=== PATIENT | male | born 1975 | race Caucasian/White ===

== ENCOUNTER 2019-02-20 07:54 | Inpatient (IN) | payer BC ==
[2019-02-20] VITALS (376 sets, daily range): BP systolic 88–112; BP diastolic 56–81; PULSE 95–157; TEMP 98–98.4; O2SAT 79–100
[~2019-02-20] VITALS: Ht 180.3 cm; Wt 74.5 kg
[2019-02-20] MEDS ORDERED: PRISTIQ 50 MG T50 MG PO (08:03)
[2019-02-20] MEDS ORDERED: ATIVAN 0.50.5 MG/TAB PO (08:04)
[2019-02-20] MEDS ORDERED: ISTALOL 2.5 ML2.5 ML OU (08:05)
[2019-02-20] MEDS ORDERED: XALATAN EYE DROPS OU (08:05)
[2019-02-20] MEDS ORDERED: MULTIPLE VITAMI1 CAP PO (08:06)
[2019-02-20 08:28] LABS: HEMATOCRIT 43.2 % (42.0-52.0); HEMOGLOBIN 14.7 g/dl (13.5-18.0); MEAN CELL VOLUME 86 fl (80.0-100.0); MEAN CORPUSCULAR HEMOGLOBIN 29 pg (27.0-31.0); MEAN CORPUSCULAR HGB CONC 34 g/dl (33.0-37.0); MEAN PLATELET VOLUME 11.5 fl (7.4-10.4); PLATELET COUNT 351 K/mm3 (130-400); RED BLOOD COUNT 5.03 M/mm3 (4.20-5.60); REDCELL DISTRIBUTION WIDTH-CV 12.7 % (11.5-14.5)
[2019-02-20 08:42] LABS: BILIRUBIN,TOTAL 1.1 mg/dL (0.0-1.0); CALCIUM 8.5 mg/dL (8.4-10.2); CREATININE, serum 0.94 mg/dL (0.66-1.25); TOTAL PROTEIN 5.9 gm/dL (6.4-8.2)
[2019-02-20 09:09] LABS: BAND 18 % (0-10); LYMPHOCYTE 1 % (20.0-51.0); NEUTROPHILS 75 % (42.0-75.2); PLATELET ESTIMATE NORMAL (NORMAL)
[2019-02-20 09:11] LABS: C-REACTIVE PROTEIN 30.2 mg/dL (0.0-0.9)
[2019-02-20 09:22] LABS: INR 1.7 (0.8-3.0); PROTHROMBIN TIME 19.2 SECONDS (9.7-12.8)
[2019-02-20 09:37] LABS: COLLECTION METHOD CLEAN CATCH
[2019-02-20 09:43] LABS: MUCOUS Present /lpf; PH 5 (5-8); SQUAMOUS EPITHELIAL 0-2 /hpf; URINE APPEARANCE Hazy; URINE BACTERIA None Seen /hpf; URINE BILIRUBIN Negative (NEGATIVE); URINE BLOOD 1+ (NEGATIVE); URINE COLOR Yellow; URINE GLUCOSE 3+ (NEGATIVE); URINE KETONE 2+ (NEGATIVE); URINE LEUKOCYTE ESTERASE Negative (NEGATIVE); URINE NITRATE Negative (NEGATIVE); URINE PROTEIN(semi-quant) Negative (NEGATIVE); URINE UROBILINOGEN Negative (NEGATIVE)
[2019-02-20 09:43] LABS: LACTIC ACID 2.7 mmol/L (0.4-2.0)
--- NOTE | 2019-02-20 14:06 | NUR ---
To ICU 6 via bed from OR with RN x1 at side. Awakens easily when name called. Bedside report recievd from Rosalia COLUNGA. Abd dressing CDI, verified with FURRIER SHOP SUPERVISOR, with G tube present. G tube to LIWS. Complains of sl nausea and states pain 3-4 at this time. IV site verified. [place] to room and monitors applied. Call light in reach.
--- NOTE | 2019-02-20 15:00 | NUR ---
FARMWORKER PULLET FARM Dilaudid started per order. Adina Barber RN at bedside and sets up FARMWORK[employer], verified by this RN. Instructions given to patient by Adina Barber RN. Voices instuctions on use.
--- NOTE | 2019-02-20 15:15 | NUR ---
Dr. Raines here and aware of continued tachycardia. No new orders at this time. Will continue to monitor.
--- NOTE | 2019-02-20 17:30 | NUR ---
Dr. Rice here to see patient. Patient states last drink was 12 days ago, usually drinks a pint a day at home. Patient reported to this RN and now to Dr. Rice that he typically doesn't have withdrawal symptoms. Dr. Rice would like ETOH scoring/CIWA Q4 hours and Ativan orders if he would need it through the night for anxiety, doeesn't believe that patient will detox but would like it monitored. Reviewed continued tachycardia with provider. Reviewed I&O, labs and VS. No new orders at this time, does not want to start sepsis protocol, just continue to monitor at this time.
--- NOTE | 2019-02-20 19:10 | NUR ---
Bedside report given to Briana COLUNGA. Reviewed vital signs, BP and heart rate. BP cuff readjusted and retaken. Reviewed BUTTER LIQUEFIER settings and orders. Patient sitting up in bed, frequently sleepy but arouses when name called.
[2019-02-20 20:32] LABS: CALCIUM 7.3 mg/dL (8.4-10.2); CREATININE, serum 1.91 mg/dL (0.66-1.25); POTASSIUM 5.2 mmol/L (3.4-5.0)
[2019-02-20 22:29] LABS: ARTERIAL BLD GAS O2 SATURATION 90.5 % (92-100); ARTERIAL BLD GAS TCO2 CT 14.8; ARTERIAL BLOOD GAS BASE EXCESS -12.8 (-2-2); ARTERIAL BLOOD GAS HCO3 13.7 meq/L (22-26); ARTERIAL BLOOD GAS PCO2 33.7 mmHg (35-45); ARTERIAL BLOOD GAS PO2 71.7 mmHg (80-100); ARTERIAL BLOOD GAS pH 7.23 (7.35-7.45)
[2019-02-20 22:43] LABS: MEAN CORPUSCULAR HGB CONC 32 g/dl (33.0-37.0); MEAN PLATELET VOLUME 11.9 fl (7.4-10.4); RED BLOOD COUNT 3.63 M/mm3 (4.20-5.60); REDCELL DISTRIBUTION WIDTH-CV 13.2 % (11.5-14.5)
[2019-02-20 22:51] LABS: INR 1.9 (0.8-3.0); PROTHROMBIN TIME 21.4 SECONDS (9.7-12.8)
[2019-02-20 22:52] LABS: HEMATOCRIT 33.1 % (42.0-52.0); HEMOGLOBIN 10.6 g/dl (13.5-18.0); MEAN CELL VOLUME 91 fl (80.0-100.0); MEAN CORPUSCULAR HEMOGLOBIN 29 pg (27.0-31.0); PLATELET COUNT 538 K/mm3 (130-400)
[2019-02-20 22:53] LABS: CALCIUM 6.3 mg/dL (8.4-10.2); CREATININE, serum 1.87 mg/dL (0.66-1.25); PHOSPHOROUS 4.9 mg/dL (2.5-4.5); POTASSIUM 4.2 mmol/L (3.4-5.0)
[2019-02-20 22:54] LABS: PARTIAL THROMBOPLASTIN TIME 31.7 SECONDS (26.0-37.0)
[2019-02-20 23:13] LABS: ALANINE AMINOTRANSFERASE 42 U/L (21-72); ALKALINE PHOSPHATASE 105 U/L (50-136); AST,SGOT 50 U/L (15-37)
[2019-02-20 23:32] LABS: BAND 40 % (0-10); HYPOCHROMIA 2+; LYMPHOCYTE 2 % (20.0-51.0); METAMYELOCYTE 1 % (0-0); MYELOCYTE 1 % (0-0); NEUTROPHILS 55 % (42.0-75.2); PLATELET ESTIMATE INCREASED (NORMAL); SCHISTOCYTES 1+
[2019-02-21] VITALS (845 sets, daily range): BP systolic 91–106; BP diastolic 57–95; PULSE 86–134; TEMP 97.7–98.7; O2SAT 68–100
[2019-02-21 02:24] LABS: HEMOGLOBIN 10.7 g/dl (13.5-18.0)
[2019-02-21 02:25] LABS: HEMATOCRIT 33.3 % (42.0-52.0)
[2019-02-21 02:35] LABS: CALCIUM 6.5 mg/dL (8.4-10.2); CREATININE, serum 1.92 mg/dL (0.66-1.25)
[2019-02-21 04:14] LABS: HEMOGLOBIN 11.1 g/dl (13.5-18.0); MEAN CELL VOLUME 91 fl (80.0-100.0); MEAN CORPUSCULAR HEMOGLOBIN 30 pg (27.0-31.0); MEAN CORPUSCULAR HGB CONC 33 g/dl (33.0-37.0); MEAN PLATELET VOLUME 11.6 fl (7.4-10.4); PLATELET COUNT 549 K/mm3 (130-400); RED BLOOD COUNT 3.76 M/mm3 (4.20-5.60); REDCELL DISTRIBUTION WIDTH-CV 13.2 % (11.5-14.5)
[2019-02-21 04:21] LABS: HEMATOCRIT 34.2 % (42.0-52.0)
[2019-02-21 04:24] LABS: CALCIUM 6.9 mg/dL (8.4-10.2); CREATININE, serum 2.06 mg/dL (0.66-1.25); POTASSIUM 3.9 mmol/L (3.4-5.0)
[2019-02-21 04:32] LABS: HEMOGLOBIN A1C 7.4 %
[2019-02-21 05:03] LABS: LACTIC ACID 2.7 mmol/L (0.4-2.0)
[2019-02-21 05:58] LABS: BAND 52 % (0-10); HYPOCHROMIA 1+; LYMPHOCYTE 6 % (20.0-51.0); METAMYELOCYTE 1 % (0-0); NEUTROPHILS 38 % (42.0-75.2); PLATELET ESTIMATE INCREASED (NORMAL)
[2019-02-21 05:59] LABS: ARTERIAL BLD GAS O2 SATURATION 92.3 % (92-100); ARTERIAL BLD GAS TCO2 CT 15.9; ARTERIAL BLOOD GAS HCO3 14.8 meq/L (22-26); ARTERIAL BLOOD GAS PCO2 36.5 mmHg (35-45); ARTERIAL BLOOD GAS PO2 74.3 mmHg (80-100); ARTERIAL BLOOD GAS pH 7.23 (7.35-7.45)
[2019-02-21 06:19] LABS: COLLECTION METHOD CLEAN CATCH
[2019-02-21 06:30] LABS: BILIRUBIN,TOTAL 0.4 mg/dL (0.0-1.0); CALCIUM 6.7 mg/dL (8.4-10.2); CREATININE, serum 2.13 mg/dL (0.66-1.25); TOTAL PROTEIN 4.2 gm/dL (6.4-8.2)
[2019-02-21 06:54] LABS: PH 5 (5-8); SQUAMOUS EPITHELIAL 0-2 /hpf; URINE APPEARANCE Cloudy; URINE BACTERIA None Seen /hpf; URINE BILIRUBIN Negative (NEGATIVE); URINE BLOOD 3+ (NEGATIVE); URINE COLOR Amber; URINE GLUCOSE 1+ (NEGATIVE); URINE KETONE Trace (NEGATIVE); URINE LEUKOCYTE ESTERASE Trace (NEGATIVE); URINE NITRATE Negative (NEGATIVE); URINE PROTEIN(semi-quant) 1+ (NEGATIVE); URINE RBC >50 /hpf; URINE UROBILINOGEN Negative (NEGATIVE)
--- NOTE | 2019-02-21 07:45 | NUR ---
Bedside report received from CRISTINE Warren. Dr. Wang here, new orders received. New orders to decrease D5W to 75ml/hr, decrease NS to 75ml/hr, decrease insulin gtt to 4 units/hr.
--- NOTE | 2019-02-21 08:00 | NUR ---
Assessment complete. Dr. Wang talking to patient about need for intubation. Patient does not want any family or friends called at this time.
--- NOTE | 2019-02-21 08:31 | NUR ---
Trish Marinelli,JODY here for intubation. 8.0 ETT, 23 at teeth. Dieter,RN at bedside, Patience,RT at bedside. Dr. Wang at bedside, with this RN.
--- NOTE | 2019-02-21 08:43 | NUR ---
1999 - CALLED HOSPITALIST DR. PEREZ REGARDING PT'S BP AT 80'S TO 90'S, HR AT 140'S. BS AT 462. LACTIC AT 9.0. ORDERS RECEIVED FOR STAT EKG. SEVERE SEPSIS PROTOCOL INITIATED. DIRECTOR ASSET DILAUDID CONTINUOUS DOSE DECREASED TO 0.1 MG/HR. PT SWITCHED TO ICU STATUS. 2149 - LEFT SUBCLAVIAN TRIPLE LUMEN CATHETER INSERTED BY DR. BOJORQUEZ. 2229 - DR. DE ANDA CONSULTED AND PRESENT AT BEDSIDE. 2319 - IV INSULIN STARTED PER ORDER. 529 - PT'S URINE OUTPUT WAS 150, DR. PEREZ NOTIFIED AND VERBALIZED SHE'LL ORDER NEPHROLOGY CONSULT.
[2019-02-21 08:48] LABS: CALCIUM 6.7 mg/dL (8.4-10.2); CREATININE, serum 2.11 mg/dL (0.66-1.25); POTASSIUM 3.8 mmol/L (3.4-5.0)
[2019-02-21 08:50] LABS: INR 1.6 (0.8-3.0); PROTHROMBIN TIME 18.4 SECONDS (9.7-12.8)
[2019-02-21 08:52] LABS: PARTIAL THROMBOPLASTIN TIME 29.8 SECONDS (26.0-37.0)
--- NOTE | 2019-02-21 09:00 | NUR ---
Dr. Wang gives order to decrease insulin gtt to 2 units/hr.
--- NOTE | 2019-02-21 09:01 | NUR ---
VERIFIED TITRATION UNITS TO DR. PEREZ AND WANTED TO DECREASE IT 1 UNIT PER HOUR UNTIL BS ATLEAST 150 MG/DL.
--- NOTE | 2019-02-21 09:40 | NUR ---
Fentanyl gtt started, Dilaudid VENEER JOINER discontinued at this time.
--- NOTE | 2019-02-21 11:00 | NUR ---
Dr. Null gives order to dc insulin gtt.
[2019-02-21 11:05] LABS: ARTERIAL BLD GAS O2 SATURATION 96.2 % (92-100); ARTERIAL BLD GAS TCO2 CT 15.7; ARTERIAL BLOOD GAS BASE EXCESS -11.1 (-2-2); ARTERIAL BLOOD GAS HCO3 14.7 meq/L (22-26); ARTERIAL BLOOD GAS PCO2 32.5 mmHg (35-45); ARTERIAL BLOOD GAS PO2 96.9 mmHg (80-100); ARTERIAL BLOOD GAS pH 7.27 (7.35-7.45)
[2019-02-21 11:15] LABS: CALCIUM 6.6 mg/dL (8.4-10.2); CREATININE, serum 2.27 mg/dL (0.66-1.25)
[2019-02-21 11:17] LABS: POTASSIUM 3.9 mmol/L (3.4-5.0)
--- NOTE | 2019-02-21 11:51 | NUR ---
RT here to change vent settings, TV increased to 500, BR increased to 24.
--- NOTE | 2019-02-21 13:29 | NUR ---
PT ELECTIVELY INTUBATED BY ANESTHESIA PER DR. DE ANDA'S ORDERS. PT PLACED ON SETTINGS PER DR. DE ANDA. #8.0 OETT SECURED 23@TEETH. CXR DONE AT THIS TIME FOR PLACEMENT CONFIRMATION. ABG PENDING @1000. [facility]. VITAL SIGNS STABLE. AMBU BAG WITH MASK AT BEDSIDE.
--- NOTE | 2019-02-21 14:28 | NUR ---
Patient is currently intubated and sedated. Patient gave orders to the nurse prior to intubation that he does not want anyone contacted about him while he is here. Patient does not have a PCP listed and [facility] is listed as his pharmacy. SW will continue to follow up to assist in dc planning.
--- NOTE | 2019-02-21 16:10 | NUR ---
PT here working with patient.
[2019-02-21 17:09] LABS: ALBUMIN 1.9 gm/dL (3.5-5.0); BILIRUBIN,TOTAL 0.3 mg/dL (0.0-1.0); CALCIUM 6.6 mg/dL (8.4-10.2); CREATININE, serum 2.36 mg/dL (0.66-1.25); PHOSPHOROUS 5.1 mg/dL (2.5-4.5); POTASSIUM 3.9 mmol/L (3.4-5.0)
[2019-02-21 17:26] LABS: ARTERIAL BLD GAS O2 SATURATION 97.1 % (92-100); ARTERIAL BLD GAS TCO2 CT 18.4; ARTERIAL BLOOD GAS BASE EXCESS -6.7 (-2-2); ARTERIAL BLOOD GAS HCO3 17.5 meq/L (22-26); ARTERIAL BLOOD GAS PCO2 30.1 mmHg (35-45); ARTERIAL BLOOD GAS PO2 102.7 mmHg (80-100); ARTERIAL BLOOD GAS pH 7.38 (7.35-7.45)
--- NOTE | 2019-02-21 18:00 | NUR ---
Patient awake, writing notes. Patient repositioned for comfort. Propofol gtt increased. Call light within reach.
--- NOTE | 2019-02-21 19:17 | NUR ---
Bedside report given to CRISTINE Warren. All lines/gtts verified.
[2019-02-22] VITALS (922 sets, daily range): BP systolic 92–114; BP diastolic 62–84; PULSE 80–110; TEMP 97–98.7; O2SAT 63–100
[2019-02-22 05:09] LABS: ARTERIAL BLD GAS O2 SATURATION 96.3 % (92-100); ARTERIAL BLD GAS TCO2 CT 19.1; ARTERIAL BLOOD GAS BASE EXCESS -6.5 (-2-2); ARTERIAL BLOOD GAS HCO3 18.1 meq/L (22-26); ARTERIAL BLOOD GAS PCO2 32.4 mmHg (35-45); ARTERIAL BLOOD GAS PO2 94.9 mmHg (80-100); ARTERIAL BLOOD GAS pH 7.37 (7.35-7.45)
[2019-02-22 05:16] LABS: MEAN CELL VOLUME 91 fl (80.0-100.0); MEAN CORPUSCULAR HGB CONC 33 g/dl (33.0-37.0); MEAN PLATELET VOLUME 11.3 fl (7.4-10.4); RED BLOOD COUNT 2.51 M/mm3 (4.20-5.60); REDCELL DISTRIBUTION WIDTH-CV 13.5 % (11.5-14.5)
[2019-02-22 05:23] LABS: HEMATOCRIT 22.8 % (42.0-52.0); HEMOGLOBIN 7.4 g/dl (13.5-18.0); MEAN CORPUSCULAR HEMOGLOBIN 29 pg (27.0-31.0); PLATELET COUNT 422 K/mm3 (130-400)
[2019-02-22 05:34] LABS: ALBUMIN 1.9 gm/dL (3.5-5.0); BILIRUBIN,TOTAL 0.2 mg/dL (0.0-1.0); CALCIUM 6.9 mg/dL (8.4-10.2); CREATININE, serum 2.66 mg/dL (0.66-1.25); MAGNESIUM 2.2 mg/dL (1.6-2.3); PHOSPHOROUS 3.7 mg/dL (2.5-4.5); POTASSIUM 3.6 mmol/L (3.4-5.0)
--- NOTE | 2019-02-22 05:50 | NUR ---
SMART CARE NOT DONE PT HAS NOT BEEN INTUBATED FOR OVER 24 HOURS.
[2019-02-22 07:50] LABS: BAND 4 % (0-10); LYMPHOCYTE 4 % (20.0-51.0); NEUTROPHILS 90 % (42.0-75.2); PLATELET ESTIMATE INCREASED (NORMAL)
[2019-02-22 08:50] LABS: HEMATOCRIT 21.7 % (42.0-52.0); HEMOGLOBIN 7.1 g/dl (13.5-18.0)
--- NOTE | 2019-02-22 09:12 | NUR ---
PT EXTUBATED FROM VENT BY RN AND RT. PT PLACED ON 3L NC. PT TOLERATED WELL.
--- NOTE | 2019-02-22 09:15 | NUR ---
PT HAS REACHED PS OF 0 AT THIS TIME. ALERT/AWAKE. NIF -25. POSTIVE CUFF LEAK NOTED. DR. DE ANDA GAVE THE ORDER AT THIS TIME TO EXTUBATE. PT EXTUBATED WITH NO ISSUES. PLACED ON 3LNC. PT COUGHED A FEW TIMES WITH JUST A MINIMAL AMOUT OF SECRETIONS. NO STRIDOR AUSCULTATED.
--- NOTE | 2019-02-22 10:00 | NUR ---
ADDITIONAL IV ACCESS NEEDED FOR BUMEX GTT. 20 IV INSERTED TO LEFT AC
--- NOTE | 2019-02-22 11:22 | NUR ---
BG 137, DOWN FROM 290. GTT PLACED ON HOLD. WILL RECHECK IN 1 HOUR
--- NOTE | 2019-02-22 12:23 | NUR ---
PT'S BG 74. INSULIN GTT CONTNUES TO BE ON HOLD. 12.5 GM D50 GIVEN IVP. WILL RECHECK BG IN 15 MINS.
--- NOTE | 2019-02-22 13:34 | NUR ---
BG 109. INSULIN GTT CONTINUES TO BE ON HOLD
--- NOTE | 2019-02-22 14:32 | NUR ---
DAQUAN and SW student met with patient to discuss discharge planning. Patient lives alone in [place]. He reports he does not talk to his parents or other family. SW discussed next of kin and medical decisions with him. He reports his contact, Sherwin Campbell [phone], knows how to get ahold of his parents in an emergancy and he is fine with them making the decisions if he is unable to. SW provided a DPOA form and explained the process. he reports he will think about making one with his ER contact on it. SW will follow up about this. Patient doesnt currently have a PCP and would like a follow up set with Dr Powell at [facility] as long as he takes his BCBS. SW talked with patient about alcohol detox. he does say he is an alcoholic but does not have any problems with detox symptoms and can stop drinking for a period of time without any health issues. SW asked if patient would be interested in outpatient treatment after discharge and he said he would like information about [facility] program. SW provided brochures to patient. SW will continue to follow about outpatient alcohol and mental health treatment as well as filling out DPOA.
--- NOTE | 2019-02-22 16:00 | NUR ---
BS 154 AT THIS TIME. INSULIN GTT REMAINS ON HOLD D/T RECENT HYPOGLYCEMIA. WILL RECHECK IN 1 HOUR AND IF BLOOD GLUCOSE REMAINS STABLE WILL DISCONTNUE INSULIN GTT AND SWITCH TO ASHS WITH SLIDING SCALE PER DR PERSAUD'S VERBAL ORDERS.
--- NOTE | 2019-02-22 17:30 | NUR ---
PT ALERT/AWAKE. PLACED ON 2 MIN CPAP 5 PEEP 5 TRIAL. PT PASSED AND LOOKED WELL ON THOSE SETTINGS. PT PLACED ON SMART CARE AT THIS TIME ON THE SAME SETTINGS. RN AWARE, TURNED SEDATION DOWN. DR. DE ANDA ARRIVED SHORTLY AFTER AND WAS PLEASED WITH SMART CARE AND HAD RN COMLETELY TURN DOWN SEDATION TO PREPARE FOR EXTUBATION.
--- NOTE | 2019-02-22 19:10 | NUR ---
RECEIVED BEDSIDE REPORT FROM CRISTINE LIZARRAGA. PATIENT WAS AWAKE AND PARTICIPATED IN REPORT. MEDICATIONS VARIFIED. WILL CONTINUE TO MONITOR PATIENT.
[2019-02-23] VITALS (900 sets, daily range): BP systolic 106–134; BP diastolic 80–88; PULSE 106–116; TEMP 97.2–98.8; O2SAT 63–100
--- NOTE | 2019-02-23 02:04 | NUR ---
PATIENT IS CURRENTLY ASLEEP. WILL CONTUINUE TO MONITOR PATIENT.
[2019-02-23 05:50] LABS: BASO % 0.1 % (0.0-2.0); EOS % 0.1 % (0-4.0); GRAN # 14.2 (1.4-6.5); GRAN % 89.8 % (42.2-75.2); LYMPH # 0.8 (1.2-3.4); MEAN CELL VOLUME 88 fl (80.0-100.0); MEAN CORPUSCULAR HGB CONC 33 g/dl (33.0-37.0); MONO # 0.5 (0.1-0.6); MONO % 3.4 % (1.7-9.3); PLATELET COUNT 419 K/mm3 (130-400); RED BLOOD COUNT 3.17 M/mm3 (4.20-5.60); REDCELL DISTRIBUTION WIDTH-CV 13.2 % (11.5-14.5)
[2019-02-23 06:00] LABS: ALBUMIN 2.6 gm/dL (3.5-5.0); BILIRUBIN,TOTAL 0.6 mg/dL (0.0-1.0); CREATININE, serum 3.04 mg/dL (0.66-1.25); POTASSIUM 3.4 mmol/L (3.4-5.0); TOTAL PROTEIN 5.3 gm/dL (6.4-8.2)
[2019-02-23 06:19] LABS: HEMOGLOBIN 9.3 g/dl (13.5-18.0); MEAN CORPUSCULAR HEMOGLOBIN 29 pg (27.0-31.0)
--- NOTE | 2019-02-23 07:05 | NUR ---
Bedside report received from CRISTINE Foster.
--- NOTE | 2019-02-23 07:26 | NUR ---
GAVE REPORT TO CRISTINE CASON.
--- NOTE | 2019-02-23 07:30 | NUR ---
Assessment complete, patient resting in bed, reports pain 2-3/10 to abdomen, states "its ok, as long as I remember to push my button." Patient states " can I have some non-acidic juice" this RN discussed with patient, that we will talk to Dr. Raines when he comes to see him.
--- NOTE | 2019-02-23 07:45 | NUR ---
Rosa,ST here for cognitive eval.
--- NOTE | 2019-02-23 08:08 | NUR ---
PT here to see patient, assisted him to the chair.
--- NOTE | 2019-02-23 08:50 | NUR ---
PICC intact right upper arm with disk saturated with red drainage. with sterile technique right upper arm PICC dressing change done with insertion site cleansed with chloraprep x 1, chlorhexidine impregnated disk applied, skin prep, stat lock, and tegaderm applied. no signs or symptoms of IV complications noted. no concerns voiced. re-wrapped with charlie to protect catheter.
--- NOTE | 2019-02-23 10:14 | NUR ---
Initial visit; Patient thanked Cuprous Chloride Helper for stopping and offering God's blessings.
--- NOTE | 2019-02-23 11:26 | NUR ---
OT in working with patient.
--- NOTE | 2019-02-23 19:09 | NUR ---
RECEIVED REPORT FROM CRISTINE CASON. PATIENT WAS RESTING IN BED. MEDICATIONS AND LINES VARIFIED.
--- NOTE | 2019-02-23 19:10 | NUR ---
Bedside report given to CRISTINE Foster.
[2019-02-24] VITALS (675 sets, daily range): BP systolic 118–130; BP diastolic 73–92; PULSE 97–110; TEMP 97.9–99.2; O2SAT 75–100
[2019-02-24 05:06] LABS: MEAN CELL VOLUME 89 fl (80.0-100.0); MEAN CORPUSCULAR HGB CONC 33 g/dl (33.0-37.0); MEAN PLATELET VOLUME 10.8 fl (7.4-10.4); PLATELET COUNT 388 K/mm3 (130-400); RED BLOOD COUNT 2.85 M/mm3 (4.20-5.60); REDCELL DISTRIBUTION WIDTH-CV 13.2 % (11.5-14.5)
[2019-02-24 05:10] LABS: HEMATOCRIT 25.4 % (42.0-52.0); HEMOGLOBIN 8.3 g/dl (13.5-18.0); MEAN CORPUSCULAR HEMOGLOBIN 29 pg (27.0-31.0)
[2019-02-24 05:18] LABS: ALBUMIN 2.4 gm/dL (3.5-5.0); BILIRUBIN,TOTAL 0.5 mg/dL (0.0-1.0); CALCIUM 8.1 mg/dL (8.4-10.2); CREATININE, serum 2.96 (0.66-1.25); MAGNESIUM 1.9 mg/dL (1.6-2.3); PHOSPHOROUS 3.4 mg/dL (2.5-4.5); POTASSIUM 3.2 mmol/L (3.4-5.0); TOTAL PROTEIN 5.2 gm/dL (6.4-8.2)
[2019-02-24 06:09] LABS: BAND 9 % (0-10); HYPOCHROMIA 1+; LYMPHOCYTE 8 % (20.0-51.0); MYELOCYTE 2 % (0-0); NEUTROPHILS 77 % (42.0-75.2); PLATELET ESTIMATE NORMAL (NORMAL); TEAR DROP CELLS 1+
--- NOTE | 2019-02-24 06:29 | NUR ---
DR. DE ANDA IS VISITING WITH PATIENT. DISCUSSED PLAN OF CARE WITH PATIENT. ANSWERED ALL PATIENTS QUESTIONS. WILL CONTINUE TO MONITOR PATIENT.
--- NOTE | 2019-02-24 07:35 | NUR ---
GAVE REPORT TO CRISTINE GILLILAND. PATIENT WAS AWAKE AND PARTICIPATED IN REPORT.
--- NOTE | 2019-02-24 07:35 | NUR ---
Bedside report recieved by Kristin COLUNGA and Serge RN. Patient awake and participates with report, denies needs at this time. Medications and lines verified. Call light and TUNNEL ELASTIC OPERATOR LOCKSTITCH button at side.
--- NOTE | 2019-02-24 11:10 | NUR ---
PROJECT DEVELOPMENT COORDINATOR discontinued at this time. Patient states understanding of change in pain medication. Mize given, takes without difficulty. Encouraged to eat, states "I was just waiting for Dr. Raines to come."
--- NOTE | 2019-02-24 13:25 | NUR ---
DAQUAN talked with Katarina in PT about patients dc potential. She reports she is meeting with him again this afternoon with a walker and will see if he will need rehab at discharge or if he has potential to return home.
--- NOTE | 2019-02-24 19:35 | NUR ---
Bedside report given to Gabe RN. Patient sitting up in chair, participates in report. IV Medications verified. Denies needs at this time.
--- NOTE | 2019-02-24 19:58 | NUR ---
Shift assessment complete at this time. Plan of care reviewed at bedside with patient. Vitals stable at this time. Additional time taken to address any other needs or concerns. Denies pain or any other discomfort. Will continue to monitor.
[2019-02-25] VITALS (551 sets, daily range): BP systolic 113–130; BP diastolic 81–93; PULSE 116–152; TEMP 98–98.9; O2SAT 82–100
--- NOTE | 2019-02-25 | NUR ---
Pt sleeping comfortably in bed. Denies pain or any other discomfort. Vitals stable at this time. Will continue to monitor.
[2019-02-25 02:50] LABS: HEMATOCRIT 32.4 % (42.0-52.0); HEMOGLOBIN 10.6 g/dl (13.5-18.0); MEAN CELL VOLUME 89 fl (80.0-100.0); MEAN CORPUSCULAR HEMOGLOBIN 29 pg (27.0-31.0); MEAN CORPUSCULAR HGB CONC 33 g/dl (33.0-37.0); MEAN PLATELET VOLUME 10.8 fl (7.4-10.4); PLATELET COUNT 605 K/mm3 (130-400); RED BLOOD COUNT 3.66 M/mm3 (4.20-5.60); REDCELL DISTRIBUTION WIDTH-CV 13.2 % (11.5-14.5)
[2019-02-25 02:56] LABS: INR 1.3 (0.8-3.0); PROTHROMBIN TIME 14.5 SECONDS (9.7-12.8)
[2019-02-25 03:00] LABS: ALBUMIN 2.6 gm/dL (3.5-5.0); BILIRUBIN,TOTAL 0.8 mg/dL (0.0-1.0); CALCIUM 8.7 mg/dL (8.4-10.2); CREATININE, serum 2.72 (0.66-1.25); POTASSIUM 3.7 mmol/L (3.4-5.0); TOTAL PROTEIN 5.5 gm/dL (6.4-8.2)
[2019-02-25 03:21] LABS: BAND 18 % (0-10); HYPOCHROMIA 1+; LYMPHOCYTE 2 % (20.0-51.0); METAMYELOCYTE 1 % (0-0); NEUTROPHILS 77 % (42.0-75.2); PLATELET ESTIMATE INCREASED (NORMAL)
[2019-02-25 03:22] LABS: STOMATOCYTE 1+
--- NOTE | 2019-02-25 04:00 | NUR ---
Pt sleeping in bed. Denies pain or any other discomfort. HR improving, now low 140s from 150s. Pt now afebrile at 98.5 from previous temp of 102.8 at 0230. All other vitals stable. Will continue to monitor.
--- NOTE | 2019-02-25 07:18 | NUR ---
Bedside report given to CRISTINE Kramer.
--- NOTE | 2019-02-25 07:18 | NUR ---
Bedside report recieved from Gabe COLUNGA. Medications and lines verified.
--- NOTE | 2019-02-25 08:00 | NUR ---
To CT via bed with RN at bedside. 0813-Returns to room via bed from CT. Lab here and specimens obtained.
[2019-02-25 10:05] LABS: ARTERIAL BLD GAS O2 SATURATION 95.3 % (92-100); ARTERIAL BLOOD GAS BASE EXCESS 1.2 (-2-2); ARTERIAL BLOOD GAS HCO3 23.1 meq/L (22-26); ARTERIAL BLOOD GAS PO2 73.7 mmHg (80-100); ARTERIAL BLOOD GAS pH 7.52 (7.35-7.45)
--- NOTE | 2019-02-25 11:29 | NUR ---
SW attended clinical rounding. Patient is sleeping however nurse reports he has gotten up and walked. PT notes report patient was able to ambulate with cane and would still like to return home on discharge. SW to follow.
[2019-02-25 12:58] LABS: COLLECTION METHOD CATHETER
[2019-02-25 13:31] LABS: AMORPHOUS CRYSTAL Present /uL; MUCOUS Present /lpf; PH 5 (5-8); SQUAMOUS EPITHELIAL None Seen /hpf; URINE APPEARANCE Clear; URINE BACTERIA Rare /hpf; URINE BILIRUBIN Negative (NEGATIVE); URINE BLOOD 1+ (NEGATIVE); URINE COLOR Yellow; URINE GLUCOSE Negative (NEGATIVE); URINE KETONE Negative (NEGATIVE); URINE LEUKOCYTE ESTERASE Negative (NEGATIVE); URINE NITRATE Negative (NEGATIVE); URINE PROTEIN(semi-quant) 1+ (NEGATIVE); URINE UROBILINOGEN Negative (NEGATIVE)
--- NOTE | 2019-02-25 19:10 | NUR ---
received report from nacho ceja. patient was awake and participated in report. medications varified.
--- NOTE | 2019-02-25 19:14 | NUR ---
Bedside report given to Kristin COLUNGA and Kiersten COLUNGA. Patiene wakeful for most of report. Denies needs. IV medications verified at this time.
--- NOTE | 2019-02-25 23:20 | NUR ---
PATIENT WAS COMPLAINING OF INCISION PAIN. RATED IT A 5/10. GAVE 2 MG OF MORPHINE. WILL CHECK BACK IN 30 MINUTES TO SEE IF THE MEDICATION HELPED.
[2019-02-26] VITALS (849 sets, daily range): BP systolic 126–139; BP diastolic 89–98; PULSE 110–137; TEMP 97.5–99.1; O2SAT 88–100
--- NOTE | 2019-02-26 00:09 | NUR ---
PATIENT SEEMS TO BE RESTING COMFORTABLY IN BED. PATIENT STATED THAT THE MORPHINE DID DECREASE THE PAIN. PATIENT SHEART RATE IS IN THE UPPER 120'S. WILL CONTINUE TO MONITOR PATIENT.
--- NOTE | 2019-02-26 03:06 | NUR ---
CALLED [facility] AND SPOKE TO CRISTINE CHILDRESS. INFORMED HIM OF PATIENT HEART RATE AND BLOOD PRESSURE. BOTH HAVE BEEN INCREASING THE NIGHT HAS GONE ON. CRISTINE CHILDRESS INFORMED ME HE WOULD TALK TO DR. BRAUN AND LET ME KNOW FURTHER PLANS. WILL CONTINUE TO MONITOR PATIENT.
--- NOTE | 2019-02-26 04:19 | NUR ---
STARTED PATIENT ON A 500 ML BOLUS OF NORMAL SALINE TO HELP REDUCE THE TACHYCARDIA. PATIENT DOES NOT COMPLAIN OF PAIN AT THIS TIME BUT DOES LOOK EXHAUSTED AND WEAK. WILL CONTINUE TO MONITOR PATIENT THROUGHOUT THE SHIFT.
[2019-02-26 05:47] LABS: MEAN CELL VOLUME 92 fl (80.0-100.0); MEAN CORPUSCULAR HGB CONC 32 g/dl (33.0-37.0); PLATELET COUNT 600 K/mm3 (130-400); RED BLOOD COUNT 3.27 M/mm3 (4.20-5.60); REDCELL DISTRIBUTION WIDTH-CV 13.8 % (11.5-14.5)
[2019-02-26 05:49] LABS: HEMATOCRIT 30.1 % (42.0-52.0); HEMOGLOBIN 9.6 g/dl (13.5-18.0); MEAN CORPUSCULAR HEMOGLOBIN 29 pg (27.0-31.0)
[2019-02-26 06:02] LABS: ALBUMIN 2.3 gm/dL (3.5-5.0); BILIRUBIN,TOTAL 0.8 mg/dL (0.0-1.0); CALCIUM 8.3 mg/dL (8.4-10.2); CREATININE, serum 2.54 (0.66-1.25); MAGNESIUM 2.2 mg/dL (1.6-2.3); POTASSIUM 4.1 mmol/L (3.4-5.0); TOTAL PROTEIN 5.1 gm/dL (6.4-8.2)
[2019-02-26 06:27] LABS: INR 1.4 (0.8-3.0); PROTHROMBIN TIME 16.4 SECONDS (9.7-12.8)
--- NOTE | 2019-02-26 07:20 | NUR ---
Bedside report received from CRISTINE Foster. Care of patient assumed at this time.
--- NOTE | 2019-02-26 07:30 | NUR ---
gave report to CRISTINE Mcknight.
[2019-02-26 07:47] LABS: BAND 20 % (0-10); LYMPHOCYTE 4 % (20.0-51.0); NEUTROPHILS 75 % (42.0-75.2)
[2019-02-26 07:48] LABS: PLATELET ESTIMATE INCREASED (NORMAL)
--- NOTE | 2019-02-26 08:11 | NUR ---
Patient assessment complete. Patient resting in bed, denies pain at this time but states he is having some shortness of breath. Patient breaths are shallow, labored upon exertion. Midline abdominal incision features some opening between sandi where erlinda are not present. Minimal drainage noted as well. Patient denies any pain at this time. Feet are pale and edemetous. Patient seems somewhat letharhic despite being awake and oriented x4. Patient becomes a bit dyspneic while speaking. Heart rate remains tachycardic, 137 beats/min at this time. Will continue to closely monitor.
--- NOTE | 2019-02-26 12:45 | NUR ---
Patient assessment complete. Patient resting in bed. No acute changes. Will continue to monitor.
--- NOTE | 2019-02-26 16:20 | NUR ---
Patient currently resting in bed. Patient dangled feet at bedside, states he feels better afterwards although he became slightly dyspneic while assisted back into a laying position. Patient states he is having some increased pain associated with movement. Heart rate continue to be tachycardic, 127 beats/min at this time. Will continue to monitor.
--- NOTE | 2019-02-26 17:19 | NUR ---
Left subclavian triple lumen noted to have some acute redness and warmth during examination. Called Dr. Rice, verbal order to remove central line obtained. Left subclavian central line pulled using sterile technique. Catheter tip removed with sterile scissor, sent for culture. Pressure held for 5 minutes. Sterile dressing placed. Will monitor closely.
--- NOTE | 2019-02-26 19:15 | NUR ---
Bedside report given to CRISTINE Burch.
[2019-02-26 19:24] LABS: 12 HR URINE TOTAL VOLUME 1.25 L
[2019-02-27] VITALS (1131 sets, daily range): BP systolic 127–153; BP diastolic 84–96; PULSE 110–126; TEMP 98.4–99.8; O2SAT 73–99
--- NOTE | 2019-02-27 00:45 | NUR ---
Notified [facility]-care that eveing levemir dose was held due to blood glucose of 79. At 0043 glucose was 106. Will continue to monitor.
--- NOTE | 2019-02-27 01:40 | NUR ---
Bedbath provided and abdominal incision dressing changed. Administered morphing prior to dressing change. Patient reported that receiving pain medication prior to dressing changes was helpful. No concerns at this time.
--- NOTE | 2019-02-27 04:00 | NUR ---
Patient resting between disturbances. Requesting water; reminded to try to pace himself with liquids so to not drink too much throughout the night. No other concerns at this time.
[2019-02-27 06:46] LABS: BASO % 0.1 % (0.0-2.0); EOS % 0.1 % (0-4.0); GRAN # 12.5 (1.4-6.5); GRAN % 89.2 % (42.2-75.2); LYMPH # 0.5 (1.2-3.4); LYMPH % 3.2 % (20.0-51.0); MEAN CELL VOLUME 92 fl (80.0-100.0); MEAN CORPUSCULAR HGB CONC 31 g/dl (33.0-37.0); MEAN PLATELET VOLUME 11.1 fl (7.4-10.4); MONO # 0.8 (0.1-0.6); PLATELET COUNT 530 K/mm3 (130-400); RED BLOOD COUNT 2.85 M/mm3 (4.20-5.60); REDCELL DISTRIBUTION WIDTH-CV 13.9 % (11.5-14.5)
[2019-02-27 06:47] LABS: HEMATOCRIT 26.3 % (42.0-52.0); HEMOGLOBIN 8.2 g/dl (13.5-18.0); MEAN CORPUSCULAR HEMOGLOBIN 29 pg (27.0-31.0)
[2019-02-27 06:55] LABS: ALBUMIN 2.4 gm/dL (3.5-5.0); BILIRUBIN,TOTAL 0.8 mg/dL (0.0-1.0); CALCIUM 8.4 mg/dL (8.4-10.2); CREATININE, serum 2.48 (0.66-1.25); POTASSIUM 4.2 mmol/L (3.4-5.0); TOTAL PROTEIN 5.4 gm/dL (6.4-8.2)
--- NOTE | 2019-02-27 07:18 | NUR ---
Bedside report received from CRISTINE Burch. Care of patient assumed at this time.
--- NOTE | 2019-02-27 09:19 | NUR ---
Patient assessment complete. Patient resting in bed, denies pain at this time. Redness no longer present on chest, left chest site where subclavian line was removed features no signs of infection. Abdominal wound features openings between sandi, some drainage noted, but no erythema or edema surrounding area. Some drainage noted around g-tube site. Areas cleaned, new dressing placed. Patient's lower legs continue to be edemetous and cool. Patient still seems lethargic. Heart rate improved, current heart rate 105. Will continue to monitor.
--- NOTE | 2019-02-27 12:18 | NUR ---
Patient resting in bed. denies pain at this time. Heart rate slightly increased at 126 beats/min. Patient breaths are tachypneic and shallow, but patient denies shortness of breath. Redness present on patient's cheeks and chest that is warm to the touch and blanchable. Diphenhydramine given per MAR, hospitalist and tip mender aware. Will continue to monitor.
--- NOTE | 2019-02-27 17:32 | NUR ---
Patient resting in bed. No acute changes. No redness apparent on chest at this time. Patient continues to take in clear liquids without nausea, tolerates well. Will continue to monitor.
--- NOTE | 2019-02-27 19:10 | NUR ---
Bedside report received from Roxanna. Pt resting in bed at this time with eyes open. Denies any questions.
--- NOTE | 2019-02-27 19:15 | NUR ---
Bedside report given to CRISTINE Berger.
--- NOTE | 2019-02-27 19:30 | NUR ---
Pts aunt discussed with this nurse pts ability to have Propel beverage at bedside. Discussed with pt and family member the ability to have this drink although will need to limit due to the extra electrolytes pt will be intaking with this beverage. 2 full bottles put in the pt fridge with a bottle 3/4 full at pt bedside. Pt agreed to limit intake due to prior pt discussion with dietitian, via pt report.
--- NOTE | 2019-02-27 20:59 | NUR ---
Pt assessment complete. Pt resting in bed at this time. Pt reported to nurse ability to alternated sides when discomfort is felt. Denies bed bath or oral care at this time. Pt also declined repositioning of pillows under bilateral legs. Need for ankles pumps and IS while awake reviewed at this time. Pt resting with eyes open and closed while nurse was in the room with medication administration and assessment. Pt makes wants and needs known with proper demonstration of call light which is with in reach. Upper extremities are cool to the touch, core and lower extremities are warm. [place] with scattered areas of dehiscence and a small amount of serosanguineous drainage noted at this time to abdominal incision. Pt reported needing pain medication q 4-6 hours. Reviewed ordered pain medication at this time and will continue to reassess. Verbalized agreement that pt will notify nurse when pain returns.
[2019-02-28] VITALS (698 sets, daily range): BP systolic 104–147; BP diastolic 58–88; PULSE 102–128; TEMP 98.3–99.9; O2SAT 87–97
--- NOTE | 2019-02-28 05:00 | NUR ---
Pt abdominal dressing change completed. Pt tolerated well. Cleaned X2 Chlor swabs. Moderate amount of drainage noted to gauze and abd at this time. Redness noted to wound edges although no s/sx of active infection at this time. Dressing replaced. At this time canister and tubing replaced for G tube at LIS.
[2019-02-28 05:56] LABS: MEAN CELL VOLUME 94 fl (80.0-100.0); MEAN CORPUSCULAR HGB CONC 31 g/dl (33.0-37.0); MEAN PLATELET VOLUME 11.1 fl (7.4-10.4); PLATELET COUNT 507 K/mm3 (130-400); RED BLOOD COUNT 2.51 M/mm3 (4.20-5.60); REDCELL DISTRIBUTION WIDTH-CV 14.3 % (11.5-14.5)
[2019-02-28 06:04] LABS: CREATININE, serum 2.49 (0.66-1.25); MAGNESIUM 2.3 mg/dL (1.6-2.3); PHOSPHOROUS 3.8 mg/dL (2.5-4.5); POTASSIUM 3.9 mmol/L (3.4-5.0)
[2019-02-28 06:08] LABS: HEMATOCRIT 23.5 % (42.0-52.0); HEMOGLOBIN 7.3 g/dl (13.5-18.0); MEAN CORPUSCULAR HEMOGLOBIN 29 pg (27.0-31.0)
[2019-02-28 06:53] LABS: BAND 26 % (0-10); LYMPHOCYTE 7 % (20.0-51.0); NEUTROPHILS 63 % (42.0-75.2); PLATELET ESTIMATE INCREASED (NORMAL)
--- NOTE | 2019-02-28 07:00 | NUR ---
report recieved from Celine COLUNGA. Patient sleeping in bed at this time. Offers no s/s pain or discomfort. Call light in reach.
--- NOTE | 2019-02-28 08:54 | NUR ---
No dressing change at this time; dressing was changed at 0500 by production shift supervisor nurse. Will assess at a point later in the shift for need.
--- NOTE | 2019-02-28 10:35 | NUR ---
Follow-up visit; Patient thanked Sewer Repairer for looking in on him again today and wishing him well and God's blessings.
--- NOTE | 2019-02-28 11:31 | NUR ---
SW and NCM mentioned [facility] to dr De La Cruz. He does not feel it will be necessary from his side. Patient did get up to chair with PT and nurse reports he stood for 45 min while shaving and completing ADLs. SW will continue to follow to assist in any dc needs at this time.
--- NOTE | 2019-02-28 14:25 | NUR ---
Report called to Ernestine COLUNGA on surgical floor. Will transfer when able.
--- NOTE | 2019-02-28 14:45 | NUR ---
Transferred to surgical room 342 via wheelchair. Request to use bathroom, ambulatory to bathroom with SBA using cane. Call light given and shown how to use, states understanding. No nurse or FINANCIAL SERVICES COUNSELOR in room to meet patient. Ernestine COLUNGA found and aware patient there and up in bathroom.
--- NOTE | 2019-02-28 15:00 | NUR ---
arrived on unit per WC accompanined by CRISTINE Kramer and ambulated into bathroom
--- NOTE | 2019-02-28 16:20 | NUR ---
resting in bed, dozing at intervals
--- NOTE | 2019-02-28 18:49 | NUR ---
bedside shift report given to CRISTINE Underwood
--- NOTE | 2019-02-28 20:30 | NUR ---
Assessment completed. Patient is A&O x 4. VSS, currently on room air. Tele maintained. Reports [place] has been controlling his abdominal pain. Abdomen is firm and distended. Gtube is currently clamped at this time. Abdominal midline with ABD dressing in place underneath dressing sandi intact, dehiscence noted between some of the sandi. Audible bowel sounds. Patient did have a large watery brown stool this evening. Tolerating liqiuds at this time with no c/o nausea. Torres catheter to DD with yellow clear urine draining. BLE and RUE edema noted and edema noted. BLE scds on. RUE double lumen PICC line flushes well with good blood return, TPN infusing through PICC line at this time. Patient up with assist x 2, was steady on feet states he does feel weak and sometimes unsteady when he is up. Denies any concerns or needs at this time. Bed is in a low position with call light in reach.
[2019-03-01] VITALS (8 sets, daily range): BP systolic 113–123; BP diastolic 71–81; PULSE 63–131; TEMP 97.5–99.6
--- NOTE | 2019-03-01 01:30 | NUR ---
Patient has been resting well, repositioned with assist x 1. Requested pain medication at this time for c/o abdominal pain. Denies any other concerns or needs. Bed remains in a low position with call light in reach.
--- NOTE | 2019-03-01 04:08 | NUR ---
Patient has rested intermittently through the night. VSS, HR continues to be tachycardiac in the 100-110's. Abdominal pain controlled with prn [place] at this time. Abdominal midline with ABD, small amount of drainage noted on the dressing. Continues to deny any nausea, tolerating liquids at bedside. Torres catheter remains to DD with yellow clear urine draining. Was up to the bathroom once last night to use the bathroom, patient had a lot of gas and a large watery stool. TPN remains infusing to CURT PICC. Denies any concerns or needs at this time, call light remains within reach.
--- NOTE | 2019-03-01 06:30 | NUR ---
Reported on to CRISTINE Hollis.
[2019-03-01 06:55] LABS: INR 1.4 (0.8-3.0); MEAN CELL VOLUME 93 fl (80.0-100.0); MEAN CORPUSCULAR HGB CONC 31 g/dl (33.0-37.0); MEAN PLATELET VOLUME 11.5 fl (7.4-10.4); PLATELET COUNT 506 K/mm3 (130-400); PROTHROMBIN TIME 15.6 SECONDS (9.7-12.8); RED BLOOD COUNT 2.32 M/mm3 (4.20-5.60); REDCELL DISTRIBUTION WIDTH-CV 14.6 % (11.5-14.5)
[2019-03-01 07:02] LABS: HEMATOCRIT 21.6 % (42.0-52.0); MEAN CORPUSCULAR HEMOGLOBIN 29 pg (27.0-31.0)
[2019-03-01 07:04] LABS: HEMOGLOBIN 6.7 g/dl (13.5-18.0)
[2019-03-01 07:16] LABS: ALBUMIN 2.2 gm/dL (3.5-5.0); BILIRUBIN,TOTAL 1.5 mg/dL (0.0-1.0); CALCIUM 7.8 mg/dL (8.4-10.2); CREATININE, serum 2.62 (0.66-1.25); POTASSIUM 4.1 mmol/L (3.4-5.0); TOTAL PROTEIN 5.1 gm/dL (6.4-8.2)
--- NOTE | 2019-03-01 07:50 | NUR ---
Pt. in bed. VS as charted. pt. with no further needs. Central PIC line no redness or swelling at site.
--- NOTE | 2019-03-01 08:21 | NUR ---
Patient resting in bed with eyes closed. Opened eyes when this nurse was assessing catheter drainage bag. PICC to right upper arm infusing TPN. Site remains free from redness, drainage, or swelling. Torres catheter dependent and draining clear yellow urine. Incision noted to middle of abdomen. Covered with ABD pad. Assessed site under ABD with restaurant shift leader during report. Minimal drainage noted. Sutures intact. Patient denies pain.
--- NOTE | 2019-03-01 08:30 | NUR ---
Assisted pt. with hygeine. pt. had mild exertional dyspnea upon ambulation, pulse 93%. Incision abd midline sandi intact clean,dry and intact. abd G tube clamped clean, dry and intact. folley catheter secure urine yellow and clear.
--- NOTE | 2019-03-01 08:50 | NUR ---
PICC intact right upper arm with sterile dressing change done with insertion site cleansed with chloraprep x 1, chlorhexidine impregnated disk, skin prep, stat lock, and tegaderm applied. no signs or symptoms of IV complications noted. no concerns voiced. re-wrapped with charlie to protect catheter.
--- NOTE | 2019-03-01 09:18 | NUR ---
Midline incision with sandi noted, open areas between sandi where previous erlinda were placed. Small amount of drainage noted to midline dressing. PEG tube in place to LUQ, no drainage noted. BLE with 2+ edema noted. Torres catheter patent and draining clear [place] urine. No other c/o at this time.
[2019-03-01 09:38] LABS: BAND 33 % (0-10); EOSINOPHIL 1 % (0-4); HYPOCHROMIA 1+; LYMPHOCYTE 7 % (20.0-51.0); NEUTROPHILS 57 % (42.0-75.2); PLATELET ESTIMATE INCREASED (NORMAL)
--- NOTE | 2019-03-01 10:45 | NUR ---
Assessment as charted. Pulse trending high CRISTINE Hollis is aware.
--- NOTE | 2019-03-01 11:30 | NUR ---
Reported off to Telma COLUNGA.
--- NOTE | 2019-03-01 18:53 | NUR ---
Patient laying in bed. Refuses dinner, but ordered Gatorade. Attempted to educate patient on the importance of increasing his caloric intake. Torres catheter out, and 100ml of urine in urinal at bedside.
--- NOTE | 2019-03-01 19:55 | NUR ---
Assessment completed. Patient is A&O x 4. HR noted to be tachycardiac in the 100's-115's at this time. Tele maintained. Abdominal pain controlled with prn [place] at this time. Patient requested abdominal dressing be changed this evening. ABD dressing removed from abdomen and a new dressing applied, midline incision noted with sandi intact and inbetween each staple is open areas with a scant amount of drainage noted. G-tube is clamped, gauze dressing around is CDI. Denies any nausea, has been tolerating a liquid diet. Reports not having much of an appetite. Passing gas. CURT double lumen PICC line flushes well with good blood return. TPN and antibiotics used through PICC line. Bed is in a low position with call light in reach.
--- NOTE | 2019-03-01 22:15 | NUR ---
Patient had an incontinent small soft formed bowel movement while sitting in bed. Assisted with cleaning up and care provided.
[2019-03-02] VITALS: BP 125/77; PULSE 124; TEMP 99.1
[2019-03-02 03:23] VITALS: BP 137/85; PULSE 128; TEMP 98.8
[2019-03-02 06:09] LABS: ALBUMIN 2.3 gm/dL (3.5-5.0); BILIRUBIN,TOTAL 1.4 mg/dL (0.0-1.0); CALCIUM 8.1 mg/dL (8.4-10.2); CREATININE, serum 2.63 (0.66-1.25); POTASSIUM 3.9 mmol/L (3.4-5.0); TOTAL PROTEIN 5.5 gm/dL (6.4-8.2)
[2019-03-02 06:15] LABS: PRE ALBUMIN 8.8 mg/dL (17.6-36.0)
--- NOTE | 2019-03-02 06:38 | NUR ---
Patient has rested intermittently through the night. HR continues to remain tachycardiac in the 110's. Pain controlled through the shift with prn [place]. Abdominal ABD dressing remains CDI with drainage noted under dressing. Patient had two small soft formed bowel movements through the night. Voiding with no difficulities. TPN remains infusing through PICC line. Denies any concerns or needs at this time.
--- NOTE | 2019-03-02 06:45 | NUR ---
Reported on with CRISTINE Royal.
[2019-03-02 07:00] VITALS: BP 115/76; PULSE 113; TEMP 98.7
--- NOTE | 2019-03-02 07:00 | NUR ---
Pt. in bed. PICC line in place with no redness, swelling, or edema. TPN infusing at 91ml per hour. ABD midline gauze in place, CDI and drainage noted. telemetry in place. pt. has no furher needs at this time.
[2019-03-02 07:48] LABS: MEAN CELL VOLUME 90 fl (80.0-100.0); MEAN CORPUSCULAR HGB CONC 32 g/dl (33.0-37.0); MEAN PLATELET VOLUME 11.6 fl (7.4-10.4); PLATELET COUNT 525 K/mm3 (130-400); RED BLOOD COUNT 2.82 M/mm3 (4.20-5.60); REDCELL DISTRIBUTION WIDTH-CV 14.9 % (11.5-14.5)
[2019-03-02 07:49] LABS: HEMATOCRIT 25.4 % (42.0-52.0); HEMOGLOBIN 8.1 g/dl (13.5-18.0); MEAN CORPUSCULAR HEMOGLOBIN 29 pg (27.0-31.0)
--- NOTE | 2019-03-02 08:00 | NUR ---
122 glucose check, Insulin Aspart held.
[2019-03-02 08:13] LABS: EOSINOPHIL 3 % (0-4); LYMPHOCYTE 6 % (20.0-51.0); NEUTROPHILS 82 % (42.0-75.2); PLATELET ESTIMATE INCREASED (NORMAL)
[2019-03-02 08:14] LABS: ANISOCYTOSIS 1+
--- NOTE | 2019-03-02 09:00 | NUR ---
Assessment as charted. Encouraged Nutrition, but pt. refused. No further needs at that time.
[2019-03-02 11:00] VITALS: BP 116/76; PULSE 116; TEMP 97.5
--- NOTE | 2019-03-02 11:00 | NUR ---
Reported off with CRISTINE Royal.
--- NOTE | 2019-03-02 12:05 | NUR ---
First visit from the technical research scientist. No needs right now.
--- NOTE | 2019-03-02 13:37 | NUR ---
Talked with pt concerning insurance coverage and need for patient to make an effort to try eating to evaluate if he is doing well or not with digestion. Encouraged pt to start with eggs/mashed potatoes/soup and see how things go. Pt voiced he was afraid due to memories of pain at home. Encouraged pt we would help monitor the situation, his nurse can give medications for discomfort. Pt stated he would make effort to eat. Answered pt's questions and pt voiced understanding of need to increase intake.
[2019-03-02 16:02] VITALS: BP 127/80; PULSE 96; TEMP 98.1
--- NOTE | 2019-03-02 16:57 | NUR ---
SW met with the patient to introduce oneself and to review discharge plan. The patient reports that he needs to start eating more. SW discussed therapies recommendation of home with family assist as needed and home health vs outpatient PT. SW also discussed inpatient rehab. The patient reports that inpatient rehab could be a good option, depending on how he does these next couple of days. SW to continue to follow.
[2019-03-02 20:00] VITALS: BP 134/84; PULSE 117; TEMP 99.9
--- NOTE | 2019-03-02 20:00 | NUR ---
Patient up to [facility]. Has moderate loose BM. Is short of breath when transferring and heart rate up to 130's. Has bilateral lower leg edema and upper extremity edema. Patient reports difficulty with transferring due to the swelling. Is alert and oriented x4. Has right upper arm PICC with TPN infusing without redness or swelling. Voiding per urinal. Affect flat with staff.
--- NOTE | 2019-03-02 20:50 | NUR ---
Patient reports abdominal pain /, medicated with [place] 5/325mg 2 tabs at this time. Dressing changed to abdomen, lower portion of midline with most drainage. [place] intact, has gaps between sandi where erlinda were removed. Has PEG tube to left upper abdomen, clamped, dressing intact. Patient tolerated dressing change without problem.
[2019-03-03] VITALS (8 sets, daily range): BP systolic 105–133; BP diastolic 73–82; PULSE 45–126; TEMP 97.9–98.5
--- NOTE | 2019-03-03 03:00 | NUR ---
Patient up to [facility], has mod loose stool, again his heart rate was in the 130's. Once back to bed, patient reports difficulty with activity due to swelling.
--- NOTE | 2019-03-03 03:47 | NUR ---
Medicated with [place] 5/325mg 2 tabs for abdominal pain 5/10. HR back in the 110's.
[2019-03-03 06:46] LABS: MEAN CELL VOLUME 92 fl (80.0-100.0); MEAN CORPUSCULAR HGB CONC 32 g/dl (33.0-37.0); MEAN PLATELET VOLUME 11.8 fl (7.4-10.4); PLATELET COUNT 503 K/mm3 (130-400); RED BLOOD COUNT 2.69 M/mm3 (4.20-5.60); REDCELL DISTRIBUTION WIDTH-CV 14.8 % (11.5-14.5)
[2019-03-03 06:49] LABS: HEMATOCRIT 24.8 % (42.0-52.0); HEMOGLOBIN 7.8 g/dl (13.5-18.0); MEAN CORPUSCULAR HEMOGLOBIN 29 pg (27.0-31.0)
--- NOTE | 2019-03-03 06:50 | NUR ---
awake resting in bed, bedside shift report received from CRISTINE Magana
[2019-03-03 06:58] LABS: CALCIUM 7.9 mg/dL (8.4-10.2); CREATININE, serum 2.46 (0.66-1.25); POTASSIUM 3.8 mmol/L (3.4-5.0)
--- NOTE | 2019-03-03 07:30 | NUR ---
awake resting in bed, full assessment completed, see interventions for further info, abdomen distended and bowel sounds present, BLE with 3+ pitting edema, has ordered fruit for breakfast, denies needs
--- NOTE | 2019-03-03 09:30 | NUR ---
physical therapy in to work with patient and assisted up to bedside commode to try and have bowel movement
[2019-03-03 10:00] LABS: BAND 32 % (0-10); EOSINOPHIL 1 % (0-4); LYMPHOCYTE 5 % (20.0-51.0); METAMYELOCYTE 1 % (0-0); NEUTROPHILS 52 % (42.0-75.2); PLATELET ESTIMATE INCREASED (NORMAL)
--- NOTE | 2019-03-03 10:20 | NUR ---
back to bed after being up on bedside commode, has small liquid bowel movement, c/o pain to abdomen and medicated with hydrocodone 5mg 2 tabs
--- NOTE | 2019-03-03 11:59 | NUR ---
Melissa GRACIA in to see patient
--- NOTE | 2019-03-03 12:34 | NUR ---
appears to be sleeping, in bed with eyes closed, resp quiet and easy
--- NOTE | 2019-03-03 13:17 | NUR ---
occupational therapy in working with patient and assisting with hygiene
--- NOTE | 2019-03-03 15:45 | NUR ---
ambulating in weir with physical therapy with slow steady gait
--- NOTE | 2019-03-03 16:52 | NUR ---
resting in bed, parents in to visit, Dr Raines, in to see patient
--- NOTE | 2019-03-03 17:45 | NUR ---
appears to be dozing,
--- NOTE | 2019-03-03 18:52 | NUR ---
bedside shift report given to CRISTINE Magana
--- NOTE | 2019-03-03 21:00 | NUR ---
Patient in bed, has been up to bathroom for loose stool, telemetry rate in 130's with activity, rate slows to 110's with rest. Patient is alert, flat affect. Has right PICC with TPN infusing without redness or swelling. Abdomen distended, midline dressing changed at this time. [place] intact with gaps noted between that are drying. Peg tube dressing also changed, crusty drainage at insertion site cleansed. Placed gauze over sandi and g-tube site, covered midline with ABD and secured both dressings with paper tape. Noted dyspnea with exertion, edema continues to upper and lower extremities. Remains on IV Bumex BID. Voiding per urinal yellow urine.
--- NOTE | 2019-03-03 21:21 | NUR ---
Medicated with [place] 5/325mg 2 po at this time. Refused the Senna due to loose stools. Rates pain 4/10 to abdomen.
--- NOTE | 2019-03-04 02:00 | NUR ---
Up to bathroom for BM, loose stool noted. Elevated HR with activity, with dyspnea noted. Resolves after back in bed.
[2019-03-04 04:46] VITALS: BP 116/75; PULSE 119; TEMP 99.1
--- NOTE | 2019-03-04 06:07 | NUR ---
medicated with [place] 2 tabs for pain 4/10 to abdomen. Has had 2 loose stools this shift.
[2019-03-04 07:00] LABS: MEAN CELL VOLUME 91 fl (80.0-100.0); MEAN CORPUSCULAR HGB CONC 31 g/dl (33.0-37.0); MEAN PLATELET VOLUME 11.8 fl (7.4-10.4); PLATELET COUNT 528 K/mm3 (130-400); RED BLOOD COUNT 2.71 M/mm3 (4.20-5.60); REDCELL DISTRIBUTION WIDTH-CV 14.4 % (11.5-14.5)
[2019-03-04 07:03] LABS: ALBUMIN 2.5 gm/dL (3.5-5.0); BILIRUBIN,TOTAL 0.9 mg/dL (0.0-1.0); CREATININE, serum 2.29 (0.66-1.25); CREATININE, serum 2.31 (0.66-1.25); MAGNESIUM 2.1 mg/dL (1.6-2.3); PHOSPHOROUS 3.5 mg/dL (2.5-4.5); POTASSIUM 3.9 mmol/L (3.4-5.0); TOTAL PROTEIN 5.8 gm/dL (6.4-8.2)
[2019-03-04 07:04] LABS: HEMATOCRIT 24.6 % (42.0-52.0); HEMOGLOBIN 7.7 g/dl (13.5-18.0); MEAN CORPUSCULAR HEMOGLOBIN 28 pg (27.0-31.0)
[2019-03-04 07:46] VITALS: BP 129/71; PULSE 123; TEMP 98.9
[2019-03-04 08:01] LABS: BAND 47 % (0-10); LYMPHOCYTE 7 % (20.0-51.0); NEUTROPHILS 39 % (42.0-75.2); PLATELET ESTIMATE INCREASED (NORMAL)
--- NOTE | 2019-03-04 08:45 | NUR ---
Assisted patient back to bed from restroom, stand by assist with walker. Small BM. Alert and oriented x 3. Shift assessment complete. Edema noted to BLE +3 pitting. Midline with gauze CDI, dressing changed by production shift supervisor. Gtube to left upper quad, dressing is CDI. Brother in room. Denies pain or further needs at this time.
--- NOTE | 2019-03-04 10:58 | NUR ---
Care team in to see patient.
--- NOTE | 2019-03-04 11:11 | NUR ---
DAQUAN attended clinical rounds. The patient is to continue on TPN this weekend. DAQUAN and DAQUAN student then followed up with the patient on discharge plan. SW discussed outpatient therapy vs home with family assistance vs IPR. The patient reports that he would be interested in [facility] now. DAQUAN then consulted IPR Director, Desiree. SW awaiting IPR screening.
--- NOTE | 2019-03-04 11:14 | NUR ---
Patient up ambulating in weir with PT. Steady gait, with walker.
--- NOTE | 2019-03-04 11:38 | NUR ---
Patient called out to nurses station, states pain 5/10 to abdomen, given pain medication per orders.
[2019-03-04 12:59] VITALS: BP 114/73; PULSE 116; TEMP 97.4
[2019-03-04 16:31] VITALS: BP 124/75; PULSE 117; TEMP 98.1
[2019-03-04 20:00] VITALS: BP 118/71; PULSE 114; TEMP 98.1
--- NOTE | 2019-03-04 21:00 | NUR ---
Patient standby assist to bathroom, uses walker for steady gait. Has TPN infusing to right PICC without redness or swelling. Has diminished lung sounds to right, few rhonchi on left lower, upper clear. Has small loose stool in toilet. Back to bed with dyspnea noted. HR elevated into 120's with ambulation. Has pitting edema to upper and lower extremities, none to sacrum. Able to put his own legs in and out of the bed. Flat affect.
--- NOTE | 2019-03-04 21:20 | NUR ---
Medicated with [place] 5/325mg 2 tabs at this time. Taking ice water and ensure at this time. Midline incision dressing changed due to drainage. Did change PEG site drsg as well. Midline with sandi and gaps between, no dehiscence noted. PEG site with crusty drainage at insertion site. Cleansed areas with chlora-prep and redressed midline with gauze and ABD and PEG tube with drain sponge and gauze, secured with paper tape.
[2019-03-05] VITALS (12 sets, daily range): BP systolic 103–123; BP diastolic 57–77; PULSE 107–118; TEMP 97.3–99.1
--- NOTE | 2019-03-05 01:37 | NUR ---
Medicated with [place] 5/325mg 2 tabs for abdominal pain 04/08.
--- NOTE | 2019-03-05 03:10 | NUR ---
Patient up to bathroom for BM with standby assist and walker.
[2019-03-05 07:38] LABS: MEAN CELL VOLUME 91 fl (80.0-100.0); MEAN CORPUSCULAR HGB CONC 31 g/dl (33.0-37.0); MEAN PLATELET VOLUME 11.6 fl (7.4-10.4); PLATELET COUNT 429 K/mm3 (130-400); RED BLOOD COUNT 2.42 M/mm3 (4.20-5.60); REDCELL DISTRIBUTION WIDTH-CV 14.3 % (11.5-14.5)
[2019-03-05 07:44] LABS: HEMATOCRIT 21.9 % (42.0-52.0); HEMOGLOBIN 6.8 g/dl (13.5-18.0); MEAN CORPUSCULAR HEMOGLOBIN 28 pg (27.0-31.0)
--- NOTE | 2019-03-05 07:50 | NUR ---
Dr. Rice notified of hemoglobin of 6.8, TORB orders to transfuse 1 unit, type and screen.
[2019-03-05 07:51] LABS: CALCIUM 7.8 mg/dL (8.4-10.2); CREATININE, serum 2.28 (0.66-1.25); POTASSIUM 3.9 mmol/L (3.4-5.0)
--- NOTE | 2019-03-05 08:00 | NUR ---
Patient in bed resting. Alert and oriented x3. Shift assessment complete. Midline incision is CDI. Peg tube dressing CDI. PICC line to CURT with TPN infusing. Denies further needs at this time.
--- NOTE | 2019-03-05 09:00 | NUR ---
Patient up to restroom, Stand by assist with walker and gait belt. States he is feeling light headed when standing. Steady gait. Continues to have loose stools. Assisted patient back to bed. Denies further needs at this time.
[2019-03-05 12:33] LABS: BAND 4 % (0-10); LYMPHOCYTE 13 % (20.0-51.0); NEUTROPHILS 76 % (42.0-75.2); PLATELET ESTIMATE INCREASED (NORMAL)
--- NOTE | 2019-03-05 13:10 | NUR ---
Patient called out to nurses station states pain 6/10 to abdomen would like something for pain. Medications given per orders. Denies further needs at this time.
[2019-03-05 14:34] LABS: HEMATOCRIT 23.6 % (42.0-52.0); HEMOGLOBIN 7.7 g/dl (13.5-18.0)
--- NOTE | 2019-03-05 19:10 | NUR ---
Patient sitting up on edge of bed. Denies pain at this time. TPN infusing to CURT picc line. Denies further needs at this time. Reported off to shift production supervisor.
[2019-03-06] VITALS: BP 113/71; PULSE 112; TEMP 98.1
[2019-03-06 03:11] VITALS: BP 117/74; PULSE 120; TEMP 99.7
--- NOTE | 2019-03-06 06:43 | NUR ---
RESTING QUIETLY. NORCO FOR PAIN. NO N/V.
--- NOTE | 2019-03-06 06:45 | NUR ---
awake resting in bed, bedside shift report received from CRISTINE López
[2019-03-06 07:00] LABS: MEAN CELL VOLUME 89 fl (80.0-100.0); MEAN CORPUSCULAR HGB CONC 32 g/dl (33.0-37.0); MEAN PLATELET VOLUME 11.7 fl (7.4-10.4); PLATELET COUNT 417 K/mm3 (130-400); RED BLOOD COUNT 2.64 M/mm3 (4.20-5.60); REDCELL DISTRIBUTION WIDTH-CV 14.9 % (11.5-14.5)
[2019-03-06 07:07] LABS: ALBUMIN 2.5 gm/dL (3.5-5.0); BILIRUBIN,TOTAL 0.8 mg/dL (0.0-1.0); CALCIUM 8.1 mg/dL (8.4-10.2); CREATININE, serum 2.25 (0.66-1.25); HEMATOCRIT 23.5 % (42.0-52.0); HEMOGLOBIN 7.4 g/dl (13.5-18.0); MEAN CORPUSCULAR HEMOGLOBIN 28 pg (27.0-31.0); POTASSIUM 4.2 mmol/L (3.4-5.0); TOTAL PROTEIN 5.8 gm/dL (6.4-8.2)
[2019-03-06 08:00] VITALS: BP 125/70; PULSE 97; TEMP 97.7
--- NOTE | 2019-03-06 08:25 | NUR ---
resting in bed dozing at intervals, full assessment completed, see interventions for further info, denies needs at this time
--- NOTE | 2019-03-06 10:30 | NUR ---
c/o pain and medicated with hydrocodone 5mg 2 tabs, pain is 7/10,
[2019-03-06 11:29] LABS: BAND 4 % (0-10); EOSINOPHIL 2 % (0-4); LYMPHOCYTE 7 % (20.0-51.0); NEUTROPHILS 79 % (42.0-75.2)
[2019-03-06 11:30] LABS: PLATELET ESTIMATE INCREASED (NORMAL)
[2019-03-06 12:00] VITALS: BP 121/75; PULSE 116; TEMP 97.8
--- NOTE | 2019-03-06 12:56 | NUR ---
sitting up in bed eating sandwich,
--- NOTE | 2019-03-06 14:26 | NUR ---
spoke with Dr Rice and it is OK for GI consult to be seen tomorrow, Dr Saeed notified, will see tomorrow
--- NOTE | 2019-03-06 15:06 | NUR ---
abdominal dressing with mod amount serosanguinous drainage at distal end of dressing, removed, incision CD&I and redressed with 4x4s and ABD dressing
[2019-03-06 16:00] VITALS: BP 118/70; PULSE 116; TEMP 99.3
--- NOTE | 2019-03-06 17:00 | NUR ---
SAMIA Farley in to visit with patient, will talk with Dr Saeed and he will talk with Dr Raines and they will make a plan
--- NOTE | 2019-03-06 18:20 | NUR ---
assisted up to bathroom and then back to bed, provided ice and gatorade
--- NOTE | 2019-03-06 18:47 | NUR ---
bedside shift report given to CRISTINE López
[2019-03-06 20:13] VITALS: BP 111/67; PULSE 103; TEMP 98.6
--- NOTE | 2019-03-06 23:05 | NUR ---
RESTING QUIETLY. NORCO FOR PAIN. NO N/V.
[2019-03-07] VITALS (10 sets, daily range): BP systolic 113–125; BP diastolic 70–76; PULSE 107–121; TEMP 97.5–100.2
[2019-03-07 06:30] LABS: MEAN CELL VOLUME 89 fl (80.0-100.0); MEAN CORPUSCULAR HGB CONC 31 g/dl (33.0-37.0); MEAN PLATELET VOLUME 11.6 fl (7.4-10.4); PLATELET COUNT 375 K/mm3 (130-400); RED BLOOD COUNT 2.51 M/mm3 (4.20-5.60); REDCELL DISTRIBUTION WIDTH-CV 14.6 % (11.5-14.5)
[2019-03-07 06:36] LABS: HEMATOCRIT 22.3 % (42.0-52.0); HEMOGLOBIN 6.9 g/dl (13.5-18.0); MEAN CORPUSCULAR HEMOGLOBIN 27 pg (27.0-31.0)
[2019-03-07 06:38] LABS: ALBUMIN 2.5 gm/dL (3.5-5.0); BILIRUBIN,TOTAL 0.8 mg/dL (0.0-1.0); CALCIUM 7.9 mg/dL (8.4-10.2); CREATININE, serum 2.39 (0.66-1.25); PHOSPHOROUS 3.8 mg/dL (2.5-4.5); TOTAL PROTEIN 5.7 gm/dL (6.4-8.2)
[2019-03-07 07:13] LABS: ANISOCYTOSIS 1+; EOSINOPHIL 3 % (0-4); LYMPHOCYTE 8 % (20.0-51.0); NEUTROPHILS 81 % (42.0-75.2); PLATELET ESTIMATE NORMAL (NORMAL)
--- NOTE | 2019-03-07 07:34 | NUR ---
PT IN BED. NO N/V. PT HAD SEVERAL LOOSE B.M.s DURING THE NIGHT. NORCO FOR PAIN. FINGERSTICK BLOODSUGARS RUNNING HIGHER TONIGHT.
--- NOTE | 2019-03-07 09:50 | NUR ---
PICC intact right upper arm. with sterile technique right upper arm PICC dressing change done with insertion site that was ChloraPrep 1, chlorhexidine impregnated disc applied, skin prep, StatLock, and Tegaderm applied. No signs or symptoms of IV complications noted. No concerns voiced. Arm wrapped with Brennan to protect catheter.
--- NOTE | 2019-03-07 10:00 | NUR ---
Patient alert and oriented, answers questions appropriately. See assessment. Abdomen soft, non tender, non distended. Bowel sounds active x4 quads. Midline incision with sandi intact, small amount of drainage noted. G-tube in place. +Flatus. Encouraged ambulation and activity. No other c/o at this time.
--- NOTE | 2019-03-07 14:19 | NUR ---
SW met with patient to discuss discharge plan. SW informed patient that [facility] would not be able to accept him because he is too functional. SW also informed patient that PT and recommending patient receive either home health services or outpatient PT. Patient reports he does not want either of these services and will get help from his family. SW will report this back to PT/OT and nursing.
--- NOTE | 2019-03-07 14:59 | NUR ---
Dr Raines in to see patient
--- NOTE | 2019-03-07 16:10 | NUR ---
c/o pain and medicated with hydrocodone 5mg 2 tabs, dressing with small amount drainage and dressing changed with 4x4s and ABD dressing, Dr Rice in to see patient
--- NOTE | 2019-03-08 01:54 | NUR ---
Patient resting in bed during assessment. Dressing changed to abdomen and small dehisced areas noted in between sandi. Minimal yellow drainage noted to bottom of old dressing. Patient has +2 edema to bilateral lower legs. PICC to right upper arm remains free from redness, swelling, or drainage. Patient calls frequently for ice for his drinks (Gatorade and nutritional drink). Requests pain medication as often as he can have it.
[2019-03-08 04:38] VITALS: BP 121/75; PULSE 107; TEMP 98.4
[2019-03-08 06:20] LABS: MEAN CELL VOLUME 87 fl (80.0-100.0); MEAN CORPUSCULAR HGB CONC 32 g/dl (33.0-37.0); MEAN PLATELET VOLUME 11.8 fl (7.4-10.4); PLATELET COUNT 315 K/mm3 (130-400); RED BLOOD COUNT 2.85 M/mm3 (4.20-5.60); REDCELL DISTRIBUTION WIDTH-CV 14.3 % (11.5-14.5)
[2019-03-08 06:26] LABS: HEMATOCRIT 24.8 % (42.0-52.0); MEAN CORPUSCULAR HEMOGLOBIN 28 pg (27.0-31.0)
[2019-03-08 06:35] LABS: CALCIUM 8.1 mg/dL (8.4-10.2); CREATININE, serum 2.28 (0.66-1.25)
--- NOTE | 2019-03-08 07:17 | NUR ---
Patient resting in bed. Noted to have several loose brown stools throughout the night. Caps changed to PICC. Report given to day shift nurse.
[2019-03-08 07:35] LABS: BAND 32 % (0-10); EOSINOPHIL 1 % (0-4); LYMPHOCYTE 6 % (20.0-51.0); METAMYELOCYTE 1 % (0-0); MYELOCYTE 1 % (0-0); NEUTROPHILS 55 % (42.0-75.2)
[2019-03-08 07:40] LABS: HYPOCHROMIA 1+
--- NOTE | 2019-03-08 08:30 | NUR ---
Patient in bed resting. Alert and oriented x 3. Shift assessment complete. Midline dressing with Gtube CDI. Edema noted to BLE. PICC to CURT without complications. Denies further needs at this time.
[2019-03-08 08:34] LABS: PLATELET ESTIMATE NORMAL (NORMAL)
[2019-03-08 09:00] VITALS: BP 119/78; PULSE 116; TEMP 98
--- NOTE | 2019-03-08 10:00 | NUR ---
Patient states he was able to eat a small amount of food this AM. Drinking ensure and gatoraid between meals.
--- NOTE | 2019-03-08 10:00 | NUR ---
Dr. Martínez in to see patient.
--- NOTE | 2019-03-08 11:11 | NUR ---
SW attended clinical rounds. Patient reports to doctor that he is not interested in home health services or outpatient PT. Patient will need a walker when he is discharged. Patient signed choice form for [facility] [employer]. SW will fax order to [employer] for a front wheeled walker. Doctor reports patient will likley discharge on (03/10).
[2019-03-08 12:07] VITALS: BP 115/72; PULSE 107; TEMP 98.2
[2019-03-08 15:18] VITALS: BP 107/65; PULSE 105; TEMP 98.1
--- NOTE | 2019-03-08 18:54 | NUR ---
Patient has rested intermittently through the day. Has been up with walker ambulating in room. States that he would like to increase his independence in anticipation of going home soon. Has requested pain medications through the day for abdominal pain, given per orders. Denies further needs at this time. Will report off to manufacturing shift supervisor.
[2019-03-08 20:37] VITALS: BP 114/72; PULSE 116; TEMP 98.2
--- NOTE | 2019-03-08 21:00 | NUR ---
Patient rests in bed awake and alert. See assessment. Dressing to midline abdomin with moderate amount of yellow/conklin dressing over end of incision. Sandi CDI. ABD dressing removed and no active drainage noted. Sandi CDI, edges open between sandi. No redness. Cleansed outer skin surrounding incision with saline, patted dry. New dressing of stacked 4x4s to distal incision followed by ABD pad secured with paper tape. Peg tube insertion site lightly reddened and has small amount conklin crustation,cleansed with saline, patted dry followed by new sponge gauze. HS meds all reviewed and given along with norco for pain. Drinks 100% of ensure shake. SCD's applied. Encouraged elevation of BLE for edema. Picc line purple port not flushing, red port flushes with ease with good blood return.
[2019-03-09 00:02] VITALS: BP 111/66; PULSE 113; TEMP 98.1
--- NOTE | 2019-03-09 00:13 | NUR ---
Patient just had ensure shake 20-30minutes ago and accu check after is 235. Will recheck in 4 hours.
--- NOTE | 2019-03-09 03:15 | NUR ---
Patient awakened when nurse into empty urinal. Cup of ice chips given. Denies further needs.
[2019-03-09 04:19] VITALS: BP 104/67; PULSE 106; TEMP 98.6
--- NOTE | 2019-03-09 04:37 | NUR ---
Patient reports last few times has wiped self following bowel movement he's had small amount of blood on wipes. This last time states amount was several steaks of blood. Noted droplet of blood in toilet with bm. Will report to on coming shift to report to prior to giving any more heparin SQ.
[2019-03-09 07:00] LABS: CALCIUM 8.2 mg/dL (8.4-10.2); CREATININE, serum 2.1 (0.66-1.25); POTASSIUM 3.5 mmol/L (3.4-5.0)
[2019-03-09 07:15] LABS: HEMATOCRIT 25.5 % (42.0-52.0); HEMOGLOBIN 8.3 g/dl (13.5-18.0); MEAN CELL VOLUME 87 fl (80.0-100.0); MEAN CORPUSCULAR HEMOGLOBIN 28 pg (27.0-31.0); MEAN CORPUSCULAR HGB CONC 33 g/dl (33.0-37.0); MEAN PLATELET VOLUME 11.4 fl (7.4-10.4); PLATELET COUNT 394 K/mm3 (130-400); RED BLOOD COUNT 2.93 M/mm3 (4.20-5.60); REDCELL DISTRIBUTION WIDTH-CV 14.2 % (11.5-14.5)
[2019-03-09 07:43] LABS: EOSINOPHIL 2 % (0-4); LYMPHOCYTE 10 % (20.0-51.0); NEUTROPHILS 84 % (42.0-75.2); PLATELET ESTIMATE NORMAL (NORMAL)
[2019-03-09 08:37] VITALS: BP 106/69; PULSE 76; TEMP 97.5
--- NOTE | 2019-03-09 11:00 | NUR ---
Patient has been doing ok this am. Minimal complaints of pain this morning. He has been up several times to the bathroom. He keeps having loose stools, everytime he eats he goes to the bathroom. He is having some bloody stools. Discussed it with Dr Raines and he stated to hold the heparin since he has been up moving and is planning to discharge tomorrow. No other changes at this time. Call light within reach.
--- NOTE | 2019-03-09 11:45 | NUR ---
SW followed up with patient about walker order and 3 in 1 commode prices. SW reported that [facility] will deliver both the walker and commode to [facility] in the morning.
[2019-03-09 11:49] VITALS: BP 124/77; PULSE 116; TEMP 98.7
[2019-03-09 15:32] VITALS: BP 117/75; PULSE 125; TEMP 99.1
--- NOTE | 2019-03-09 17:00 | NUR ---
Sandi to abdomen incision removed at this time. Discontinued 20 sandi total. Patient tolerated well. Placed gauze dressing to lower abdomen. Patient has been having moderate draiange from lower site. Patient tolerated well. [place] given for pain. Patient stated the pain was worse from sandi being removed, just general pain. He rated his pain at 4-5 on a 0-10 scale. Denies nausea. He is warm to the touch at this time. Temp is 99.4. He stated the room feels very hot to him. Turned the temperature down in the room. No othe changes at this time. Call light within reach.
[2019-03-09 19:35] VITALS: BP 107/69; PULSE 112; TEMP 98.9
[2019-03-10] VITALS (7 sets, daily range): BP systolic 108–121; BP diastolic 64–76; PULSE 99–130; TEMP 97–98.9
--- NOTE | 2019-03-10 00:08 | NUR ---
Notified VINAY Abreu of patient's HR being in the 140's when he's up to the bathroom. When patient is not up ambulating HR is in the 120's. Stated to report to day shift and have them re-evaluate if they want to restart Toprol tomorrow.
--- NOTE | 2019-03-10 02:18 | NUR ---
Patient ambulates to the restroom independently. G-tube secured with tape. Dressing CDI. +3 pitting edema noted to bilateral lower extremities. Patient requested pain medication at 0015. Noted to be effective.
--- NOTE | 2019-03-10 06:03 | NUR ---
Patient sitting up in bed. Lab and this nurse evan blood from PICC. Requests ice water and cup of ice. Patient states he slept well. Denies any other needs.
[2019-03-10 06:54] LABS: MEAN CELL VOLUME 86 fl (80.0-100.0); MEAN CORPUSCULAR HGB CONC 33 g/dl (33.0-37.0); MEAN PLATELET VOLUME 11.3 fl (7.4-10.4); PLATELET COUNT 410 K/mm3 (130-400); RED BLOOD COUNT 2.92 M/mm3 (4.20-5.60)
[2019-03-10 07:01] LABS: HEMATOCRIT 25.2 % (42.0-52.0); HEMOGLOBIN 8.2 g/dl (13.5-18.0); MEAN CORPUSCULAR HEMOGLOBIN 28 pg (27.0-31.0)
--- NOTE | 2019-03-10 07:04 | NUR ---
Report given to CRISTINE Briseno
[2019-03-10 07:10] LABS: CALCIUM 8.4 mg/dL (8.4-10.2); CREATININE, serum 1.98 (0.66-1.25); POTASSIUM 3.7 mmol/L (3.4-5.0)
[2019-03-10 07:19] LABS: BAND 1 % (0-10); BASOPHIL 1 % (0-2); EOSINOPHIL 3 % (0-4); LYMPHOCYTE 8 % (20.0-51.0); NEUTROPHILS 82 % (42.0-75.2); PLATELET ESTIMATE NORMAL (NORMAL)
--- NOTE | 2019-03-10 08:31 | NUR ---
Patient continues to have loose stools and goes every 2-3 hours or so. He had bright red blood in his stool this morning. It is more than yesterday. He stated he was not having bloody stools in the night. No other changes at this time. Will let Dr Raines know, he is aware that patient was having blood in his stools yesterday.
--- NOTE | 2019-03-10 12:30 | NUR ---
Patient will be having a CT scan of the abdomen. He is aware. His family are supposed to be bringing him lunch. Told him to hold of on eating it. No other changes at this time. Call light within reach. Student at bedside.
--- NOTE | 2019-03-10 12:58 | NUR ---
Pt pleasant upon entry to room. Refused breakfast aside from ensure drink but stated parents are bringing lunch. Performed ABD dressing change with ABD dressing and cleansed with normal saline. Small amount of serous drainage, approximately 2.5in in diameter, noted on gauze prior to dressing change. Red port on right upper arm PICC line flushed with 10ml NS at 0830, but the purple port would not flush. Primary nurse notified. Was able to administer medication to red port when pt lifted right arm up. Pt states no needs. Call light within reach. Bed in lowest position.
--- NOTE | 2019-03-10 18:00 | NUR ---
Patient will be going back on TPN. Was able to get the purple port to flush, was not able to blood return. Flushed with heparin, hoping this will help get the line working better. Patient sent his food and drink home with his family. He understands he is NPO now. It is hard to tell if he is having a reaction to the news about getting a drain placed tomorrow. He has a very flat affect. No other changes at this time. Call light within reach.
[2019-03-10 18:33] LABS: ALBUMIN 2.7 gm/dL (3.5-5.0); BILIRUBIN,TOTAL 0.9 mg/dL (0.0-1.0); CALCIUM 8.2 mg/dL (8.4-10.2); CREATININE, serum 1.94 (0.66-1.25); MAGNESIUM 1.7 mg/dL (1.6-2.3); PHOSPHOROUS 4.8 mg/dL (2.5-4.5); POTASSIUM 3.6 mmol/L (3.4-5.0); TOTAL PROTEIN 6.1 gm/dL (6.4-8.2)
[2019-03-10 18:40] LABS: PRE ALBUMIN 17.3 mg/dL (17.6-36.0)
--- NOTE | 2019-03-10 20:00 | NUR ---
REPORT OBTAINED FROM KIYA Rojas PT RESTING IN BED. HOB ELEVATED. QUIET AND ALITTLE WITHDRAWN. ASSIST TO BR- HAD MOD AMT OF FLATUS WITH MED BLOOD TINGED STOOL ACCORDING TO PT HE FLUSHED TOILET. CLINIMIX STARTED PER PURPLE PORT OF PICC AT 42CC/HR. ZOSYN STARTED TO RED PORT THEN CHANGED BACK TO D5 1/2NS 20k+ AT 125CC/HR. ACCUCHECK 288 SEE SSI GIVEN. C/O ABD PAIN LEVEL 5/10 SEE MAR FOR NORCO GIVEN. CHANGED DRSG TO PEG TUBE- VERY CORODED WITH BROWNISH DRAINAGE. CLEANED MIDLINE ABD INCISION WITH NS. SM OPEN WOUNDS WITH SEROUS SANGUINOUS DRAINAGE NOTED. ABD DRSG APPLIED. REFUSES SCD'S. ENC FREQ MOVEMENT OF LEGS AND ANKLES. EDEMA +3BLE. ENC ELEVATION. CALL LIGHT IN REACH.
[2019-03-11] VITALS (14 sets, daily range): BP systolic 110–126; BP diastolic 72–79; PULSE 103–116; TEMP 97.9–98.4
[2019-03-11 07:57] LABS: MEAN CELL VOLUME 86 fl (80.0-100.0); MEAN CORPUSCULAR HGB CONC 32 g/dl (33.0-37.0); MEAN PLATELET VOLUME 11.1 fl (7.4-10.4); PLATELET COUNT 387 K/mm3 (130-400); REDCELL DISTRIBUTION WIDTH-CV 13.8 % (11.5-14.5)
[2019-03-11 07:58] LABS: HEMATOCRIT 24.1 % (42.0-52.0); HEMOGLOBIN 7.7 g/dl (13.5-18.0); MEAN CORPUSCULAR HEMOGLOBIN 28 pg (27.0-31.0)
[2019-03-11 08:12] LABS: CALCIUM 8.4 mg/dL (8.4-10.2); CREATININE, serum 1.82 (0.66-1.25); MAGNESIUM 1.9 mg/dL (1.6-2.3); PHOSPHOROUS 4.8 mg/dL (2.5-4.5); POTASSIUM 3.7 mmol/L (3.4-5.0)
[2019-03-11 08:16] LABS: BAND 8 % (0-10); EOSINOPHIL 1 % (0-4); LYMPHOCYTE 11 % (20.0-51.0); METAMYELOCYTE 3 % (0-0); NEUTROPHILS 73 % (42.0-75.2); PLATELET ESTIMATE NORMAL (NORMAL)
--- NOTE | 2019-03-11 11:56 | NUR ---
Patient resting in bed. Student nurse assisting in patient care. She provided hygiene. Plan of care reviewed, plans for CT guided abcess drain this afternoon, touched base with Kathy the Radiology nurse. New dressing applied around Gtube, some drainage noted. Midline abdominal incision distal part of incision with drainage noted. Patient Npo. Program Professional involved with making new TPN. Patient ambulated halls with therpy & did well. He id voiding. Will monitor
--- NOTE | 2019-03-11 13:34 | NUR ---
Pt pleasant upon entry to room. Performed dressing change to distal portion of his abdominal incision site. States no needs. Pt remains NPO. Bed in lowest position. Performed bed bath and linen change. Call light within reach.
--- NOTE | 2019-03-11 15:45 | NUR ---
Patient to CT for drain placement with Radiology staff, will await his return
--- NOTE | 2019-03-11 15:55 | NUR ---
PT ON THE TABLE. MONITORING EQUIPMENT PLACED ON PT. DR PATHAK PRESENT, TIME OUT DONE. PT GIVEN 1 MG VERSED AND 25 MCG FENTANYL.
--- NOTE | 2019-03-11 16:15 | NUR ---
PT DOING WELL. NO PAIN
--- NOTE | 2019-03-11 16:45 | NUR ---
PT BROUGHT BACK UP TO ROOM 342. ASSISTED INTO BED. DRAIN IN PLACE AND BAG IS LAYED ON THE BED NEXT TO PT. NO DRAINAGE NOTED. SITE IS CDI. TEGADERM OVER SITE. REPORT GIVEN TO SHANIA COLUNGA. PT HAD 1 MG VERSED AND 25 MCG OF FENTANYL AT 1555. CALL LIGHT IN REACH OF PT.
--- NOTE | 2019-03-11 17:38 | NUR ---
Patient has returned from drain placement. Drain to midabdomen, drg in place. One tab norco for abdominal pain. Patient Picc to [facility], TPN started per orders. Zosyn continues per orders. Abdominal dressing intact. He remains Npo with sips & chips.
--- NOTE | 2019-03-11 18:28 | NUR ---
One tab norco for pain per request. demadex per request now since he missed am dose.
--- NOTE | 2019-03-11 20:30 | NUR ---
HS meds reviewed and given. Patient sits up in bed. Denies need for pain med at this time. Urinal emptied. Abdominal abscess drain flushed with 10mls NS and air/drainage emptied of greenish brown small amount. See assessment.
[2019-03-12] VITALS (7 sets, daily range): BP systolic 113–122; BP diastolic 69–82; PULSE 103–114; TEMP 97.4–98.9
--- NOTE | 2019-03-12 00:15 | NUR ---
Patient sits up on side of bed. Reports pain med effective and pain abdomin now 1-01/09. Ice chips and small amount water given.
--- NOTE | 2019-03-12 02:15 | NUR ---
Patient sits up on side of bed and reports abdominal pain, requests norco 1 tab and given. States has been sleeping well for several hours. Denies further needs.
--- NOTE | 2019-03-12 05:30 | NUR ---
Patient rests in bed. States pain med helpful. Peg tube site light reddened edges/cleansed with saline, patted dry and new drain sponge applied. Abscess drain emptied green/brown drainage. Lower abdominal dressing of folded 4x4s with small amount conklin drainage and changed after cleansed area with saline.
--- NOTE | 2019-03-12 06:29 | NUR ---
Although patient awake frequently on rounds, states he slept well.
[2019-03-12 08:21] LABS: BASO % 0.3 % (0.0-2.0); EOS # 0.2 (0.0-0.7); EOS % 1.5 % (0-4.0); GRAN # 9.3 (1.4-6.5); GRAN % 83.1 % (42.2-75.2); LYMPH # 0.7 (1.2-3.4); LYMPH % 6.5 % (20.0-51.0); MEAN CELL VOLUME 87 fl (80.0-100.0); MEAN CORPUSCULAR HGB CONC 32 g/dl (33.0-37.0); MEAN PLATELET VOLUME 11.1 fl (7.4-10.4); MONO # 0.7 (0.1-0.6); MONO % 6.1 % (1.7-9.3); PLATELET COUNT 408 K/mm3 (130-400); RED BLOOD COUNT 2.79 M/mm3 (4.20-5.60); REDCELL DISTRIBUTION WIDTH-CV 13.8 % (11.5-14.5)
[2019-03-12 08:26] LABS: HEMATOCRIT 24.3 % (42.0-52.0); HEMOGLOBIN 7.8 g/dl (13.5-18.0); MEAN CORPUSCULAR HEMOGLOBIN 28 pg (27.0-31.0)
[2019-03-12 08:33] LABS: CALCIUM 8.6 mg/dL (8.4-10.2); CREATININE, serum 1.79 (0.66-1.25); MAGNESIUM 2.1 mg/dL (1.6-2.3); PHOSPHOROUS 4.4 mg/dL (2.5-4.5); POTASSIUM 3.7 mmol/L (3.4-5.0)
--- NOTE | 2019-03-12 09:27 | NUR ---
Patient resting in bed at this time, call light in reach reporting pain 2/10 at this time. Was given prn pain med this morning with good effect. Patient quiet this morning. Tube to right side abdomen draining properly. Patient has had elevated HR this morning see new orders per Dr. Hernandez for Lopressor. Will continue to monitor.
[2019-03-12 11:38] LABS: IRON,SERUM 21 ug/dL (35-150)
[2019-03-12 11:48] LABS: TOTAL IRON BINDING CAPACITY 243 ug/dL (261-462)
[2019-03-12 12:15] LABS: FERRITIN 694 ng/mL (18-464)
--- NOTE | 2019-03-12 19:48 | NUR ---
Patient continues to be npo except able to eat ice chips and sips of water for his pills. Patient had his wound abscess culture sent down to lab, waiting on results. Started the 12 hour urine this morning. Patient's Picc line purple lumen we were not able to get blood return from this one. This was reported to night nurse to communicate this to Judy on Thursday. Patient continues to be on TPN and tolerating well. Continues to have bilatera lower leg edema. Will continue to monitor.
--- NOTE | 2019-03-12 21:40 | NUR ---
CARE OF PT TAKEN OVER BY THIS RN. PT SLEEPING. NO c/o N/V.
[2019-03-13 00:17] VITALS: BP 109/71; PULSE 95; TEMP 98.3
[2019-03-13 03:52] VITALS: BP 118/76; PULSE 110; TEMP 98.3
--- NOTE | 2019-03-13 04:52 | NUR ---
RESTING QUIETLY. NO N/V. NORCO FOR ABDOMINAL DISCOMFORT.
[2019-03-13 06:25] LABS: CALCIUM 8.8 mg/dL (8.4-10.2); CREATININE, serum 1.73 (0.66-1.25); MAGNESIUM 2.1 mg/dL (1.6-2.3); POTASSIUM 3.9 mmol/L (3.4-5.0)
[2019-03-13 07:25] VITALS: BP 118/77; PULSE 107; TEMP 99.4
[2019-03-13 12:57] VITALS: BP 124/81; PULSE 105; TEMP 98.3
[2019-03-13 16:46] VITALS: BP 126/77; PULSE 102; TEMP 97.4
--- NOTE | 2019-03-13 18:30 | NUR ---
Abdominal pain relieved with prn [place]. Abscess drain flushed with saline. Return of foul brown liquid and air. States had loose stools this PM. Ambulatory in room. TPN infusing per PICC. NPO with ice chips.
[2019-03-13 20:00] VITALS: BP 107/75; PULSE 100; TEMP 98
--- NOTE | 2019-03-13 20:45 | NUR ---
Pt in bed resting watching TV, no C/O pain at this time, shift assessments complete, left Pt call light in reach, bed in lowest position.
[2019-03-14] VITALS: BP 112/72; PULSE 105; TEMP 98.1
[2019-03-14 03:49] VITALS: BP 118/76; PULSE 105; TEMP 97.3
--- NOTE | 2019-03-14 05:50 | NUR ---
Pt slept some during the night, drain has been producing a little drainage, VS have remained stable.
[2019-03-14 08:10] LABS: MEAN CELL VOLUME 87 fl (80.0-100.0); MEAN CORPUSCULAR HGB CONC 33 g/dl (33.0-37.0); MEAN PLATELET VOLUME 11.1 fl (7.4-10.4); PLATELET COUNT 427 K/mm3 (130-400)
[2019-03-14 08:11] LABS: HEMATOCRIT 23.6 % (42.0-52.0); HEMOGLOBIN 7.7 g/dl (13.5-18.0); MEAN CORPUSCULAR HEMOGLOBIN 29 pg (27.0-31.0)
[2019-03-14 08:28] LABS: CALCIUM 9.1 mg/dL (8.4-10.2); CREATININE, serum 1.58 (0.66-1.25); MAGNESIUM 2.3 mg/dL (1.6-2.3); PHOSPHOROUS 4.1 mg/dL (2.5-4.5); POTASSIUM 3.9 mmol/L (3.4-5.0)
[2019-03-14 08:37] LABS: EOSINOPHIL 3 % (0-4); LYMPHOCYTE 9 % (20.0-51.0); NEUTROPHILS 83 % (42.0-75.2); PLATELET ESTIMATE INCREASED (NORMAL)
[2019-03-14 08:38] LABS: POLYCHROMASIA 1+
[2019-03-14 08:39] LABS: TOXIC GRANULATION PRESENT
[2019-03-14 08:41] VITALS: BP 112/74; PULSE 103; TEMP 97.6
--- NOTE | 2019-03-14 10:42 | NUR ---
Patient currently resting in bed at this time. NPO, but does take pills with sips of water and eats ice chips. Patient getting TPN and tolerating well at this time. Patient reports that his wound abscess drainage bag has not drained any more since last night. Patient refused to take his Demedex this morning, wanting to wait to see with the physisican was going to report. Will continue to monitor. Patient given prn pain meds that have been effective.
[2019-03-14 11:48] VITALS: BP 119/77; PULSE 96; TEMP 97.3
--- NOTE | 2019-03-14 15:00 | NUR ---
Patient was changed to clear liquids see new orders. Patient was given a sponge bath today, changed his gown and bedding. Patient continues to report abdominal pain and has been given prn norco with good effect. Edema continues to decrease. Will continue to monitor.
[2019-03-14 15:26] VITALS: BP 125/81; PULSE 109; TEMP 98.4
[2019-03-14 15:30] LABS: 12 HR URINE TOTAL VOLUME 3.4 L
--- NOTE | 2019-03-14 19:05 | NUR ---
REPORT TO MIKIE COLUNGA.
[2019-03-14 20:00] VITALS: BP 122/80; PULSE 101; TEMP 98.2
--- NOTE | 2019-03-14 20:58 | NUR ---
Pt up in room then returned to bed, no C/O pain at this time, shift assessments complete, left Pt call light in reach, bed in lowest position.
[2019-03-15] VITALS (7 sets, daily range): BP systolic 109–124; BP diastolic 68–82; PULSE 99–104; TEMP 97.8–98.5
--- NOTE | 2019-03-15 05:19 | NUR ---
Pt slept some during the night, some C/O pain and received PRN medications for relief, VS have remained stable, abcess drain is draining a small amount of brown discharge.
[2019-03-15 07:31] LABS: MEAN CELL VOLUME 88 fl (80.0-100.0); MEAN CORPUSCULAR HGB CONC 31 g/dl (33.0-37.0); MEAN PLATELET VOLUME 11.3 fl (7.4-10.4); PLATELET COUNT 408 K/mm3 (130-400); RED BLOOD COUNT 2.68 M/mm3 (4.20-5.60); REDCELL DISTRIBUTION WIDTH-CV 13.9 % (11.5-14.5)
[2019-03-15 07:34] LABS: HEMATOCRIT 23.7 % (42.0-52.0); HEMOGLOBIN 7.4 g/dl (13.5-18.0); MEAN CORPUSCULAR HEMOGLOBIN 28 pg (27.0-31.0)
[2019-03-15 07:36] LABS: CALCIUM 9.1 mg/dL (8.4-10.2); CREATININE, serum 1.51 (0.66-1.25); MAGNESIUM 2.1 mg/dL (1.6-2.3); POTASSIUM 3.8 mmol/L (3.4-5.0)
[2019-03-15 08:21] LABS: EOSINOPHIL 3 % (0-4); LYMPHOCYTE 16 % (20.0-51.0); MYELOCYTE 1 % (0-0); NEUTROPHILS 73 % (42.0-75.2); PLATELET ESTIMATE INCREASED (NORMAL); POLYCHROMASIA 1+
[2019-03-15 08:22] LABS: TOXIC GRANULATION PRESENT
--- NOTE | 2019-03-15 10:25 | NUR ---
PICC intact right upper arm. With sterile technique right upper arm PICC dressing change done with insertion site cleansed with ChloraPrep 1, chlorhexidine impregnated disc applied, skin prep, StatLock, and Tegaderm applied. No signs or symptoms of IV complications noted. No concerns voiced. Patient reports at times nurses are unable to obtain blood from PICC line. Both ports flushed with 10 mL normal saline without difficulty with good blood return noted. Arm wrapped with Brennan to protect catheter.
--- NOTE | 2019-03-15 11:11 | NUR ---
Patient resting in bed. He was up and ambulated halls with therapy. Reports getting stronger everyday. He is tolerating clears. Tpn continues to RUE PICC. G tube clamped with new drain sponge placed around site. Midline new drg applied to distal part of incisions, cleanses with NS. serous drainage noted. upper part of incision open to air. Edema to BLE. Will monitor.
--- NOTE | 2019-03-15 17:22 | NUR ---
Patient resting in bed. He ambulated the entire third floor this afternoon & did well. Strength improving. Stefanie Post assisted with hygiene. TPN to RUE. He has had minimal po intake, he is hopeful for progessing diet tmrw after CT scan.
--- NOTE | 2019-03-15 19:30 | NUR ---
REPORT RECEIVED. ASSUMED CARE OF PATIENT FOR INTERNAL CONTROL MANAGER. ASSESSMENT COMPLETE. VS STABLE. TPN INFUSING INTO RIGHT UPPER ARM PICC. DENIES PAIN AT THIS TIME. DRESSING TO [id number] PORTION WITH SMALL AMOUNT OF DRAINAGE. FLUSHED DRAIN WITH NORMAL SALINE WITHOUT DIFFICULTY. DENIES NEED FOR PAIN MEDICATION. ENCOURAGED TO CALL FOR QUESTIONS OR CONCERNS. VERBALIZES UDNERSTANDING. CALL LIGHT WITHIN REACH. BED IN LOW POSITION. WHEELS LOCKED. WILL MONITOR.
--- NOTE | 2019-03-15 22:08 | NUR ---
TO ROOM AFTER CALL ABOUT TACHYCARDIA FROM ICU. UP OUT OF BED FOLDING BLANKETS AND CLEANING ROOM. STATES HE IS GOING STIR CRAZY. WILL CONTINUE TO MONITOR.
--- NOTE | 2019-03-16 02:00 | NUR ---
REQUESTING TO AMBULATE. AMBULATED FROM SURGICAL FLOOR TO MEDICAL FLOOR-ALL AROUND ENTIRE 3RD FLOOR. TOLERATED WELL-DID GET TACHYCARIC UP TO 140S-RATE DROPPED BACK DOWN TO 100S AFTER. DENIES ANY NEEDS AT THIS TIME. ENCOURAGED TO CALL FOR QUESTIONS OR CONCERNS. WILL MONITOR.
[2019-03-16 03:39] VITALS: BP 113/80; PULSE 103; TEMP 98.1
--- NOTE | 2019-03-16 04:39 | NUR ---
SLEPT WELL THROUGH THE NIGHT-ADMINISTERED NORCO X2 FOR ABDOMINAL PAIN. DID AMBULATE THIS SHIFT WITH STAND BY ASSIST. WOUND DRAIN WITH SCANT AMOUNT OF DRAINAGE-DARK GREEN IN COLOR. TPN INFUSING TO PICC LINE. ACCUCKECKS THIS SHIFT HAVE REQUIRED SLIDING SCALE INSULIN. DENIES CONCERNS AT THIS TIME. WILL MONITOR.
--- NOTE | 2019-03-16 05:10 | NUR ---
TPN PAUSED AT THIS TIME DUE TO LAB DRAW.
[2019-03-16 07:26] LABS: HEMATOCRIT 23.2 % (42.0-52.0); HEMOGLOBIN 7.4 g/dl (13.5-18.0); MEAN CELL VOLUME 88 fl (80.0-100.0); MEAN CORPUSCULAR HEMOGLOBIN 28 pg (27.0-31.0); MEAN CORPUSCULAR HGB CONC 32 g/dl (33.0-37.0); PLATELET COUNT 390 K/mm3 (130-400); RED BLOOD COUNT 2.64 M/mm3 (4.20-5.60)
[2019-03-16 07:29] LABS: ALBUMIN 3.2 gm/dL (3.5-5.0); BILIRUBIN,TOTAL 1.5 mg/dL (0.0-1.0); CALCIUM 9.2 mg/dL (8.4-10.2); CREATININE, serum 1.37 (0.66-1.25); PHOSPHOROUS 4.5 mg/dL (2.5-4.5); POTASSIUM 4.4 mmol/L (3.4-5.0)
[2019-03-16 07:34] VITALS: BP 114/75; PULSE 103; TEMP 98.4
[2019-03-16 07:37] LABS: PRE ALBUMIN 31.2 mg/dL (17.6-36.0)
--- NOTE | 2019-03-16 08:18 | NUR ---
Patient sitting up in bed. He ambulated halls with PT-continues to have elevated heart rate when up and around. Spoke with CT plans for scan at 0915 this am, they will bring gastrograffin to administer via g tube instead of patient having to drink orally. Patient given 2 tabs norco for pain 5/10 this am. His G tube drain sponge changed, some drainage noted to gauze. Distal part of incision with small amount of serous drainage on gauze. gauze changed. Tpn to RuE. Picc to RUBlane.
[2019-03-16 08:21] LABS: BAND 3 % (0-10); BASOPHIL 1 % (0-2); EOSINOPHIL 2 % (0-4); LYMPHOCYTE 9 % (20.0-51.0); MYELOCYTE 6 % (0-0); NEUTROPHILS 76 % (42.0-75.2); PLATELET ESTIMATE NORMAL (NORMAL)
--- NOTE | 2019-03-16 10:13 | NUR ---
Patient continue to wait for CT scan. He was given contrast Via G tube & tolerated well.
--- NOTE | 2019-03-16 11:13 | NUR ---
Patient to CT scan via wheelchair. Will await his return
[2019-03-16 12:17] VITALS: BP 123/89; PULSE 103; TEMP 97.5
--- NOTE | 2019-03-16 13:53 | NUR ---
Patient ambulated halls with Oil And Gas Specialist, he continues to have small bowel movements, he is independent in room. Since receiving Oral contrast via Gtube patient has had elevated drain output, dark green liquid in color. He has had sips of clear this afternoon. Tpn via PICC.
[2019-03-16 16:08] VITALS: BP 117/87; PULSE 103; TEMP 97.9
--- NOTE | 2019-03-16 18:16 | NUR ---
ambulating in weir with physical therapy
--- NOTE | 2019-03-16 19:47 | NUR ---
rounded this evening, plan of care reviewed. Patient sad/frustrated, tolerating continued clear liquids. Tpn per orders. Drain output increased today. Bedside report to Aparna COLUNGA
[2019-03-16 20:35] VITALS: BP 116/76; PULSE 110; TEMP 98.2
[2019-03-17 00:33] VITALS: BP 128/81; PULSE 107; TEMP 98.5
[2019-03-17 06:04] VITALS: BP 120/78; PULSE 84; TEMP 98.3
--- NOTE | 2019-03-17 08:00 | NUR ---
PATIENT IS A&OX4. PATIENT AMBULATING HALLWAYS INDEPENDENTLY THIS MORNING WITH IV POLE. TACHYCARDIA NOTED, OTHERWISE VSS. BOWEL SOUNDS ACTIVE ALL FOUR QUADRANTS. PATIENT IS TOLERATING DIET WITHOUT ANY COMPLAINTS OF N/V. UPPER MIDLINE INCISION CINDY WITH EDGES WELL APPROXIMATED. DISTAL PORTION OF MIDLINE INCISION DRESSED WITH GAUZE & TAPE AND HAS DRAINAGE PRESENT ON DRESSING. RIGHT-SIDED ABDOMINAL DRAIN TO DEPENDENT DRAINAGE WITH DARK-GREEN FLUID PRESENT IN DRAINAGE BAG. LEFT-SIDED ABDOMINAL GASTROSTOMY TUBE CLAMPED WITH DRAIN GAUZE SPONGES IN PLACE AND CD&I. POSITIVE PEDAL PULSES EQUAL BILATERALLY. 2+ PITTING-EDEMA TO BLE. 3+ PITTING-[place] TO FEET BILATERALLY. PICC TO RUE WITH TPN INFUSING AT 67.7 MLS/HR. CALL LIGHT WITHIN REACH. PATIENT DENIES ANY NEEDS AT THIS TIME.
--- NOTE | 2019-03-17 10:22 | NUR ---
PT IN BED WITH EYES OPEN. A/O X4. STATES PAIN IS A 2 AND REQUESTS NO PAIN MEDICATION. REPOSITIONS SELF. LUNGS CTA. BOWEL SOUNDS ACTIVE X4 QUADS. HAS 3+ PITTING EDEMA TO BILATERAL LOWER EXTREMITIES. FROM TOES TO MIDDLE OF CALF. LEGS ELEVATED ON BED. PRIMARY NURSE IS PAOLO.
--- NOTE | 2019-03-17 11:20 | NUR ---
PATIENT RATES PAIN IN ABDOMINAL AREA A 5 OUT OF 10 ON PAIN SCALE. PT REQUESTS 2 HYDROCODONE. 2 HYDROCODONE GIVEN.
[2019-03-17 12:35] VITALS: BP 119/81; PULSE 102; TEMP 97.4
[2019-03-17 14:30] VITALS: BP 121/78; PULSE 110; TEMP 97.7
--- NOTE | 2019-03-17 18:34 | NUR ---
Patient is pleasant, sitting in bed watching TV. Bed in lowest position. Personal items in reach. Call light in reach. Reported off to Katarina COLUNGA.
--- NOTE | 2019-03-17 19:08 | NUR ---
REPORT GIVEN TO CRISTINE GREEN.
[2019-03-17 20:28] VITALS: BP 118/82; PULSE 105; TEMP 98.7
--- NOTE | 2019-03-17 22:57 | NUR ---
Patient is independent with transfers, toileting, and personal hygiene. Complained of pain to abdomen 5/10. PRN [place] (2 tabs) given. This was noted to be effective. Patient continues on TPN and clear liquids. Drain to left abdomen draining dependently with green drainage. Dressing to abdomen CDI. Patient denies any further needs and is currently resting in bed with eyes closed.
[2019-03-17 23:42] VITALS: BP 126/80; PULSE 105; TEMP 97.5
[2019-03-18] VITALS (7 sets, daily range): BP systolic 119–134; BP diastolic 40–88; PULSE 64–110; TEMP 97.6–98.5
--- NOTE | 2019-03-18 03:40 | NUR ---
Patient ambulated to from room to medical unit and back with SBA. Utilizes walker. Water and jello given. Minimal green drainage noted from drain. Foul odor noted. Denies any further needs at this time.
[2019-03-18 06:55] LABS: MEAN CELL VOLUME 88 fl (80.0-100.0); MEAN CORPUSCULAR HGB CONC 32 g/dl (33.0-37.0); MEAN PLATELET VOLUME 10.9 fl (7.4-10.4); PLATELET COUNT 398 K/mm3 (130-400); RED BLOOD COUNT 2.71 M/mm3 (4.20-5.60); REDCELL DISTRIBUTION WIDTH-CV 14.7 % (11.5-14.5)
[2019-03-18 06:56] LABS: HEMATOCRIT 23.8 % (42.0-52.0); HEMOGLOBIN 7.6 g/dl (13.5-18.0); MEAN CORPUSCULAR HEMOGLOBIN 28 pg (27.0-31.0)
[2019-03-18 07:04] LABS: CALCIUM 9.1 mg/dL (8.4-10.2); CREATININE, serum 1.16 (0.66-1.25); MAGNESIUM 1.8 mg/dL (1.6-2.3); PHOSPHOROUS 3.5 mg/dL (2.5-4.5); POTASSIUM 4.1 mmol/L (3.4-5.0)
[2019-03-18 07:49] LABS: ANISOCYTOSIS 1+; BAND 1 % (0-10); EOSINOPHIL 1 % (0-4); HYPOCHROMIA 1+; LYMPHOCYTE 8 % (20.0-51.0); NEUTROPHILS 84 % (42.0-75.2); PLATELET ESTIMATE NORMAL (NORMAL)
[2019-03-18 13:35] LABS: HIV 1/2 Antibodies Non-Reactive; HIV-1p24 Antigen Non-Reactive
--- NOTE | 2019-03-18 17:44 | NUR ---
Patient is pleasant, sitting in bed watching TV. Personal items in reach. Call light in reach, bed in lowest position. Reported off to Katarina COLUNGA.
--- NOTE | 2019-03-18 18:38 | NUR ---
END OF SHIFT NOTE. SEE MORNING SHIFT ASSESSMENT. PATIENT IS A&OX4. PATIENT TOLERATING CLEAR LIQUIDS WITHOUT N/V. PATIENT TAKING 2 TABLETS OF NORCO 5MG PRN FOR PAIN. PATIENT AMBULATES INDEPENDENTLY WITHIN THE ROOM. PICC LINE CAPS CHANGED. TPN INFUSING. CALL LIGHT WITHIN REACH.
--- NOTE | 2019-03-18 19:15 | NUR ---
REPORT GIVEN TO CRISTINE GREEN.
--- NOTE | 2019-03-18 19:53 | NUR ---
Report received from CRISTINE Bray. Patient requested and received ice water. No other requests. States he wants his dressings changed later. TPN running to CURT to PICC.
[2019-03-18 22:43] LABS: HEPATITIS B SURFACE ANTIGEN Negative (Negative); HEPATITIS C VIRUS ANTIBODY Negative (Negative)
[2019-03-19] VITALS (7 sets, daily range): BP systolic 117–133; BP diastolic 76–91; PULSE 86–117; TEMP 97.4–98.5
--- NOTE | 2019-03-19 03:08 | NUR ---
Patient requests dressings be changed. Upon assessment, no drainage noted to dressings, so dressings were not changed at this time. Peritoneal drain flushed with 10ml. Flushed with no difficulty. Green drainage noted. Patient denies further needs.
--- NOTE | 2019-03-19 06:21 | NUR ---
Patient rested well throughout the night. Remained uneventful. Report to be given to day shift nurse.
--- NOTE | 2019-03-19 18:00 | NUR ---
Pain improved with prn [place]. Ambulatory in room. Activity encouraged as tolerated. States having soft stools. Minimal green drainage per abscess drain. Afebrile. Taking clear liquids. TPN infusing per PICC.
--- NOTE | 2019-03-19 19:59 | NUR ---
Patient resting in bed and requests dressing be changed. Minimal drainage noted to G-tube dressing. Site cleansed and new dressing applied. Minimal yellow drainage noted to lower part of incision on abdomen. Site cleansed and new dressing applied. Small amount of drainage noted under tegaderm/gauze dressing to peritoneal drain. Site remains intact. Denies any further needs.
[2019-03-20] VITALS (7 sets, daily range): BP systolic 116–122; BP diastolic 75–84; PULSE 99–113; TEMP 97.9–98.8
--- NOTE | 2019-03-20 05:54 | NUR ---
Patient had an uneventful night. Slept well throughout the night. Denies needs.
--- NOTE | 2019-03-20 06:52 | NUR ---
Report given to CRISTINE Echevarria.
--- NOTE | 2019-03-20 18:00 | NUR ---
Afebrile. Minimal complaints of pain. Medicated with [place] x 1 this shift. Abscess drain flushed with NS. No measurable output from drainage bag. Plan for CT scan in AM. IV antibiotics and TPN infusing per PICC.
--- NOTE | 2019-03-20 22:43 | NUR ---
PT IN BED. DRAIN TUBE FLUSHED WITH 10 mL N.S. NORCO FOR PAIN TO ABDOMEN.
[2019-03-21 04:00] VITALS: BP 115/77; PULSE 99; TEMP 98.1
[2019-03-21 07:04] VITALS: BP 129/80; PULSE 106; TEMP 97.7
[2019-03-21 07:07] LABS: CALCIUM 9.3 mg/dL (8.4-10.2); CREATININE, serum 0.97 (0.66-1.25); MAGNESIUM 2.1 mg/dL (1.6-2.3); PHOSPHOROUS 4.1 mg/dL (2.5-4.5); POTASSIUM 4.2 mmol/L (3.4-5.0)
--- NOTE | 2019-03-21 08:29 | NUR ---
Patient resting in bed. He has been up to the bathroom this am, continues to report loose stools. Patient given oral contrast Via g tube, he is anxiously awaiting Ct scan & results. G tube drain spounge changed. scab noted around g tube & clensed. He is npo, denies nausea. Picc to Rue, Tpn per orders. Abdomen rounded, bowels sounds active. Midline with edges well approximated, scabs intact, open to air. Abcess drain flushed per orders.
[2019-03-21 08:30] LABS: BASO % 0.4 % (0.0-2.0); EOS # 0.1 (0.0-0.7); EOS % 1.3 % (0-4.0); GRAN # 6.2 (1.4-6.5); GRAN % 75.3 % (42.2-75.2); LYMPH # 1.1 (1.2-3.4); LYMPH % 13.3 % (20.0-51.0); MEAN CELL VOLUME 90 fl (80.0-100.0); MEAN CORPUSCULAR HGB CONC 32 g/dl (33.0-37.0); MEAN PLATELET VOLUME 11.2 fl (7.4-10.4); MONO # 0.7 (0.1-0.6); MONO % 8.2 % (1.7-9.3); PLATELET COUNT 344 K/mm3 (130-400); RED BLOOD COUNT 2.86 M/mm3 (4.20-5.60); REDCELL DISTRIBUTION WIDTH-CV 16.1 % (11.5-14.5)
[2019-03-21 08:33] LABS: HEMATOCRIT 25.7 % (42.0-52.0); HEMOGLOBIN 8.2 g/dl (13.5-18.0); MEAN CORPUSCULAR HEMOGLOBIN 29 pg (27.0-31.0)
--- NOTE | 2019-03-21 09:44 | NUR ---
Patient has returned from CT scan. Will monitor.
[2019-03-21 11:33] VITALS: BP 121/81; PULSE 113; TEMP 98.4
--- NOTE | 2019-03-21 11:48 | NUR ---
Orders obtained form Pavithra Leung with dietary reviewed low fiber diet with patient & TPN to stop after current bag. Patient aware he needs to eat smaller more frequent meals vs a large heavy meal & he needs to make sure food he consumes in high in nutrition value. His abcess drain site dressing was changed new drain spounge & tegaderm applied & cleanses with NS.
--- NOTE | 2019-03-21 14:30 | NUR ---
PICC intact right upper arm. With sterile technique right upper arm PICC dressing change done with insertion site cleansed with ChloraPrep 1, chlorhexidine impregnated disc applied, skin prep, StatLock, and Tegaderm applied. No signs or symptoms of IV complications noted. No concerns voiced. Arm wrapped with Brennan to protect catheter.
[2019-03-21 16:18] VITALS: BP 128/90; PULSE 114; TEMP 98.1
--- NOTE | 2019-03-21 16:32 | NUR ---
Patient resting in bed. He had a small lunch & seemed to tolerate okay. rounded & plan of care was reviewed.
--- NOTE | 2019-03-21 18:04 | NUR ---
Patient thinking he just wants a ensure for dinner. Pain & nausea managed. Tpn to be stopped bag almost completed. Will report off to night nurse
--- NOTE | 2019-03-21 19:45 | NUR ---
Pt. sitting up in bed at this time. Pt. is A&OX3, assessment complete. PICC to rt. upper arm patent. Midline incision noted to be healing, ETHNOGRAPHIC MATERIALS CONSERVATOR, no drainage noted. Gastrostomy tube clamped. Wound drain to rt. abd. dressing CDI. Minimal drainage noted. Pt. denies pain or other needs, call light within reach.
[2019-03-21 20:10] VITALS: BP 121/86; PULSE 113; TEMP 99.3
[2019-03-21 23:27] VITALS: BP 121/82; PULSE 128; TEMP 99.7
[2019-03-22 05:51] LABS: BASO % 0.3 % (0.0-2.0); EOS # 0.1 (0.0-0.7); EOS % 0.5 % (0-4.0); GRAN # 9.7 (1.4-6.5); GRAN % 83.4 % (42.2-75.2); LYMPH # 0.9 (1.2-3.4); LYMPH % 8.1 % (20.0-51.0); MEAN CELL VOLUME 89 fl (80.0-100.0); MEAN CORPUSCULAR HGB CONC 32 g/dl (33.0-37.0); MEAN PLATELET VOLUME 11.2 fl (7.4-10.4); MONO # 0.8 (0.1-0.6); MONO % 6.6 % (1.7-9.3); PLATELET COUNT 340 K/mm3 (130-400); RED BLOOD COUNT 3.02 M/mm3 (4.20-5.60); REDCELL DISTRIBUTION WIDTH-CV 16.9 % (11.5-14.5)
[2019-03-22 05:55] LABS: HEMATOCRIT 26.9 % (42.0-52.0); HEMOGLOBIN 8.5 g/dl (13.5-18.0); MEAN CORPUSCULAR HEMOGLOBIN 28 pg (27.0-31.0)
[2019-03-22 05:57] LABS: CALCIUM 9.1 mg/dL (8.4-10.2); CREATININE, serum 1.05 (0.66-1.25); POTASSIUM 4.4 mmol/L (3.4-5.0)
[2019-03-22 07:53] VITALS: BP 135/92; PULSE 132; TEMP 98.3
--- NOTE | 2019-03-22 10:24 | NUR ---
Patient resting in bed. He is feeling down & fatiqued. He has only had gatorade & ensure to drink so far today for intake. PO intake encouraged. Patient Bowels active. Midline incision open to air. G tube clamped. Abcess drain to DD. minimal output. Will monitor closely.
[2019-03-22 11:21] VITALS: BP 125/87; PULSE 117; TEMP 98.2
--- NOTE | 2019-03-22 12:01 | NUR ---
Follow up visit from the dinkey skinner. Great conversation and will check in tomorrow.
--- NOTE | 2019-03-22 12:21 | NUR ---
Patient resting in bed. He ambulated the halls inependently. He continues to have little interest in food. Will monitor.
--- NOTE | 2019-03-22 13:44 | NUR ---
Dr. Raines rounded. Orders obtained. Dietary contults for G tube feeding obtained. Pavithra rounded to see patient.
[2019-03-22 16:39] VITALS: BP 129/88; PULSE 120; TEMP 99.2
--- NOTE | 2019-03-22 17:08 | NUR ---
Patient resting in bed. Spoke with . He is aware of patient increasing tachycardia-labs ordered for the am. Patient Gtube unclamped & clear liquid & what appeared to be undigested roast beef rapidly drained from Gtube. made aware, going to hold g tube feedings at this time. Patient ordered applesauce for dinner. Denies the need for pain medication at this time. Picc to INT.
--- NOTE | 2019-03-22 19:19 | NUR ---
Patient given Ativan 0.5mg po at this time. Patient is alert and oriented x4. Has minimal lower leg edema. Has a PICC to right arm. Is tachycardic, no shortness of breath. Up ad lenin in room. Abdominal incision healing. Drain sponge to PEG tube site and abscess drain to BSD.
[2019-03-22 20:43] VITALS: BP 122/85; PULSE 123; TEMP 100.6
--- NOTE | 2019-03-22 22:00 | NUR ---
Patient given [place] 5/325mg 2 tabs at this time for pain 5/10 to abdomen. Takes HS meds including Senna.
[2019-03-23] VITALS (7 sets, daily range): BP systolic 113–126; BP diastolic 75–87; PULSE 108–132; TEMP 97.6–99.7
--- NOTE | 2019-03-23 04:07 | NUR ---
Patient ambulating in hallway with walker and steady gait. No concerns offered. GM=021wk/dl.
--- NOTE | 2019-03-23 05:19 | NUR ---
Patient's heart rate remains above 120, Lopressor 5mg IVP given. Medicated with [place] 5/325mg 2 tabs also given for pain 5/10 to abdomen.
[2019-03-23 05:43] LABS: BASO % 0.2 % (0.0-2.0); EOS % 0.1 % (0-4.0); GRAN # 9.9 (1.4-6.5); GRAN % 85.9 % (42.2-75.2); LYMPH # 0.7 (1.2-3.4); LYMPH % 5.8 % (20.0-51.0); MEAN CELL VOLUME 88 fl (80.0-100.0); MEAN CORPUSCULAR HGB CONC 32 g/dl (33.0-37.0); MEAN PLATELET VOLUME 11.3 fl (7.4-10.4); MONO # 0.9 (0.1-0.6); MONO % 7.5 % (1.7-9.3); PLATELET COUNT 251 K/mm3 (130-400); RED BLOOD COUNT 2.89 M/mm3 (4.20-5.60); REDCELL DISTRIBUTION WIDTH-CV 16.8 % (11.5-14.5)
[2019-03-23 05:49] LABS: HEMATOCRIT 25.4 % (42.0-52.0); HEMOGLOBIN 8.1 g/dl (13.5-18.0); MEAN CORPUSCULAR HEMOGLOBIN 28 pg (27.0-31.0)
[2019-03-23 05:53] LABS: ALBUMIN 3.2 gm/dL (3.5-5.0); BILIRUBIN,TOTAL 0.9 mg/dL (0.0-1.0); CALCIUM 9.2 mg/dL (8.4-10.2); CREATININE, serum 1.12 (0.66-1.25); MAGNESIUM 1.6 mg/dL (1.6-2.3); PHOSPHOROUS 5.8 mg/dL (2.5-4.5); POTASSIUM 3.9 mmol/L (3.4-5.0); TOTAL PROTEIN 6.6 gm/dL (6.4-8.2)
[2019-03-23 06:00] LABS: PRE ALBUMIN 30.2 mg/dL (17.6-36.0)
--- NOTE | 2019-03-23 06:39 | NUR ---
Patients HR 108 bpm at this time. Resting quietly since [place] was given.
--- NOTE | 2019-03-23 09:00 | NUR ---
PICC intact right upper arm. patient reports PICC hard to flush. advised primary care nurse to obtain an order for cath-erika and instill.
--- NOTE | 2019-03-23 11:54 | NUR ---
Follow up visit from the glue spreader. Web Developer will check in again.
--- NOTE | 2019-03-23 13:15 | NUR ---
patient reports nursing staff is having difficulty and flushing purple port of PICC line. Obtaining an order for cath erika. Instilled 2 mg of cath flow into purple port. Waited 30 minutes and then was able to withdraw 10 mL's of blood and discarded. Port then flushed with 20 mL normal saline with good blood return noted. Primary care nurse informed.
--- NOTE | 2019-03-23 17:48 | NUR ---
PATIENT GIVEN PRN DOSE OF IV LOPRESSOR FOR HEART RATE OF 128. WILL CONTINUE TO MONITOR.
--- NOTE | 2019-03-23 19:00 | NUR ---
END OF SHIFT NOTE. SEE PATIENT MORNING ASSESSMENT. PATIENT'S DIETARY INTAKE IS MINIMAL. PATIENT TOLERATING DIET WITHOUT ANY COMPLAINTS OF N/V. PATIENT'S PICC LINE IS SLUGGISH. DION WITH [facility] ADMINISTERED CATHFLO WITH SUCCESSFUL BLOOD RETURN AND FLUSHING OF BOTH PICC LINE LUMENS. PATIENT RATED HIS PAIN A 3-6/10 ON A 0-10 SCALE THROUGHOUT THE SHIFT. PATIENT'S PAIN WELL CONTROLLED WITH 2 TABLETS OF PRN NORCO. VISITORS AT THE BEDSIDE DURING THE AFTERNOON. REPORT GIVEN TO CRISTINE GOODRICH.
--- NOTE | 2019-03-23 19:50 | NUR ---
Patient requesting Ativan, given 0.5mg po at this time. Is alert and oriented x4. Has right PICC flushed easily. Has abdominal abscess drain to BSD, output is the flushes being put in BID. G-tube supplemental feeding to start tonight.
--- NOTE | 2019-03-23 22:00 | NUR ---
Jevity 120cc given per gravity per syringe without problem. Patient had no residual prior to administration of feeding. Tolerated without nausea or abd. cramping. Flushed with 30cc water before and after feeding.
--- NOTE | 2019-03-24 00:21 | NUR ---
Medicated with [place] 5/325mg 2 tabs po at this time for abdominal pain 04/08.
[2019-03-24 00:36] VITALS: BP 122/82; PULSE 132; TEMP 98
--- NOTE | 2019-03-24 01:10 | NUR ---
HR continues to be above 120 bpm. Medicated with Lopressor 5mg IVP now.
[2019-03-24 04:03] VITALS: BP 126/83; PULSE 123; TEMP 98.2
--- NOTE | 2019-03-24 05:00 | NUR ---
Patient resting well. HR remains at 123. Too early for IV Lopressor.
[2019-03-24 07:24] VITALS: BP 123/87; PULSE 125; TEMP 98.1
[2019-03-24 11:37] VITALS: BP 126/84; PULSE 112; TEMP 97.9
--- NOTE | 2019-03-24 11:39 | NUR ---
Follow up visit from the superintendent house. No needs right now.
[2019-03-24] MEDS ORDERED: LANCETS MC (15:17)
[2019-03-24] MEDS ORDERED: GLUCOSE TEST ST1 DEV MC (15:17)
[2019-03-24] MEDS ORDERED: FREESTYLE PREC1 EAC5 MC (15:17)
--- NOTE | 2019-03-24 15:45 | NUR ---
DAQUAN and DAQUAN student met with patient about DME choice for enteral supplies and glucometer. DAQUAN infomed patient that his insurance does not cover the cost of the Jevity 1.5 but they will cover the glucometer and syringes for his enteral. DAQUAN informed patient of the cost for the formula. Patient chose [facility] to provide the enteral supplies and [facility] to provide the glucometer. DAQUAN faxed an order for enteral to [facility] and DAQUAN student faxed an order for the glucometer. DAQUAN also reported that it is recommended that patient obtain home health services for nursing. Patient reports he does not want any home health services at this time. DAQUAN informed patient that if he does in the future, his PCP can order those services.
[2019-03-24 16:03] VITALS: BP 121/76; PULSE 125; TEMP 99.6
--- NOTE | 2019-03-24 19:00 | NUR ---
Worked most the day on getting patient set up for discharge. His glucometer was delivered about 45mins ago. Explained to patient how to check his blood glucose. Discussed importance of eating regular meals. Tube feeding completed once today because patient wanted to finish his shake before gettmore tube feeding. He is worried he have nause or pain if he gets too much in his stomach. He showered this afternoon, changed dressings after his shower. When I gave his tube feeding around lunch time, I explained how to do it at home. Patient was able to repeat back the steps with me. Patient was able to check his blood sugar on his own with guidance. Explained next time he will do both and we will be at the bedside to assist if needed and to answer questions. No other changes at this time. Call light within reach.
[2019-03-24 20:50] VITALS: BP 127/80; PULSE 115; TEMP 98.8
--- NOTE | 2019-03-24 20:55 | NUR ---
Patient asking for Ativan, medicated at this time with 0.5mg po. Is alert and oriented x3. Has right PICC, flushes well. Takes other HS meds at this time. Wanting to do his Jevity bolus around 2200. Abscess wound to BSD with scant return, being flushed with NS 10cc BID. Patient hoping to go home tomorrow.
--- NOTE | 2019-03-24 23:00 | NUR ---
Patient tolerates Jevity feeding of 6oz. without nausea or vomiting. Had no residual prior to feeding. Abscess wound irrigated with 10cc NS.
[2019-03-25 00:24] VITALS: BP 119/89; PULSE 109; TEMP 98.8
[2019-03-25 04:32] VITALS: BP 119/77; PULSE 117; TEMP 99.1
--- NOTE | 2019-03-25 04:45 | NUR ---
Patient asking for pain meds, [place] 5/325mg 2 tabs given at this time. Up ambulating in hallway with walker and steady gait.
[2019-03-25 06:06] LABS: BASO % 0.2 % (0.0-2.0); EOS % 0.1 % (0-4.0); GRAN # 9.7 (1.4-6.5); LYMPH % 8.8 % (20.0-51.0); MEAN CELL VOLUME 87 fl (80.0-100.0); MEAN CORPUSCULAR HGB CONC 32 g/dl (33.0-37.0); MEAN PLATELET VOLUME 11.7 fl (7.4-10.4); MONO # 0.9 (0.1-0.6); MONO % 7.5 % (1.7-9.3); RED BLOOD COUNT 3.09 M/mm3 (4.20-5.60); REDCELL DISTRIBUTION WIDTH-CV 16.2 % (11.5-14.5)
[2019-03-25 06:11] LABS: HEMATOCRIT 26.9 % (42.0-52.0); HEMOGLOBIN 8.5 g/dl (13.5-18.0); MEAN CORPUSCULAR HEMOGLOBIN 28 pg (27.0-31.0); PLATELET COUNT 377 K/mm3 (130-400)
[2019-03-25 06:23] LABS: CALCIUM 9.4 mg/dL (8.4-10.2); CREATININE, serum 1.04 (0.66-1.25); MAGNESIUM 1.8 mg/dL (1.6-2.3); PHOSPHOROUS 4.2 mg/dL (2.5-4.5); POTASSIUM 3.5 mmol/L (3.4-5.0)
[2019-03-25 07:34] VITALS: BP 126/83; PULSE 109; TEMP 98.1
--- NOTE | 2019-03-25 08:00 | NUR ---
PATIENT AMBULATING INDEPENDENTLY IN ROOM THIS MORNING. PATIENT IS A&OX4. MIDLINE ABDOMINAL INCISION CINDY, EDGES WELL APPROXIMATED. G-TUBE CLAMPED. PATIENT TOLERATING TUBE FEEDINGS WITHOUT N/V. ABCESS DRAIN TO DEPENDENT DRAINAGE WITH SCANT AMOUNTS OF GREEN DRAINAGE PRESENT IN BAG. PATIENT REPORTS PAIN A 3/10 ON A 0-10 SCALE. SEE MORNING ASSESSMENT.
--- NOTE | 2019-03-25 10:40 | NUR ---
PATIENT ASSISTED WITH G-TUBE JEVITY FEEDING.
[2019-03-25] MEDS ORDERED: FLAGYL500 MG PO (12:25)
[2019-03-25] MEDS ORDERED: CIPRO 500MG TA500 MG PO (12:25)
[2019-03-25] MEDS ORDERED: TOPROL XL 25MG25 MG PO (12:26)
[2019-03-25] MEDS ORDERED: FERROUS SU325 MG/TAB PO (12:26)
[2019-03-25] MEDS ORDERED: DEMADEX10 MG PO (12:27)
[2019-03-25] MEDS ORDERED: SENOKOT S 50 MG1 TAB PO (12:27)
[2019-03-25] MEDS ORDERED: GLUCOPHAGE500 MG/TAB PO (12:28)
[2019-03-25 13:00] VITALS: BP 115/85; PULSE 115; TEMP 97.9
--- NOTE | 2019-03-25 13:26 | NUR ---
CRISTINE ASHLEY NOTIFIED TO REMOVE PICC LINE PER DR. BOJORQUEZ.
--- NOTE | 2019-03-25 15:30 | NUR ---
PATIENT REFUSED AFTERNOON TUBE FEEDING.
[2019-03-25] MEDS ORDERED: NORCO 325 MG-51 TAB PO (16:33)
--- NOTE | 2019-03-25 16:45 | NUR ---
DISCHARGE INSTRUCTIONS REVIEWED WITH PATIENT AND FAMILY. ALL QUESTIONS ANSWERED. PATIENT PERSONAL BELONGINGS GATHERED. PATIENT TAKEN TO PERSONAL VEHICLE VIA WHEELCHAIR BY SURGICAL STAFF. PATIENT DISCHARGED.
== END 2019-03-25 16:45 | disposition home or self-care (01) | DRG 853 ==
LOC: COL.ER 07:54 → ICU 11:36 → INPTSU 11:36 → SURG 11:36 → ICU 14:07 → SURG 02-28 14:45
PROVIDERS: Family Medicine; Hospitalist; Internal Medicine; Internal Medicine Infectious Disease; Internal Medicine Nephrology; Internal Medicine Pulmonary Disease; Nurse Practitioner Family; Physician Assistant; Surgery; ADMIT Internal Medicine
PROC: 0DN80ZZ Release Small Intestine, Open Approach (ICD-10-PCS; 2019-02-20)
PROC: 0DTK0ZZ Resection of Ascending Colon, Open Approach (ICD-10-PCS; principal; 2019-02-20 10:00)
PROC: 0DH60UZ Insertion of Feeding Device into Stomach, Open Approach (ICD-10-PCS; 2019-02-20 10:00)
PROC: 0DTB0ZZ Resection of Ileum, Open Approach (ICD-10-PCS; 2019-02-20 10:00)
PROC: 0BH17EZ Insertion of Endotracheal Airway into Trachea, Via Natural or Artificial Opening (ICD-10-PCS; 2019-02-21)
PROC: 5A1945Z Respiratory Ventilation, 24-96 Consecutive Hours (ICD-10-PCS; 2019-02-21)
PROC: 0W9G30Z Drainage of Peritoneal Cavity with Drainage Device, Percutaneous Approach (ICD-10-PCS; 2019-03-11)
DX: A41.9 Sepsis, unspecified organism (principal); K55.012 Diffuse acute (reversible) ischemia of small intestine; K65.1 Peritoneal abscess; R65.21 Severe sepsis with septic shock; J96.01 Acute respiratory failure with hypoxia; D65 Disseminated intravascular coagulation [defibrination syndrome]; E11.10 Type 2 diabetes mellitus with ketoacidosis without coma; K56.51 Intestinal adhesions [bands], with partial obstruction; N17.9 Acute kidney failure, unspecified; E87.4 Mixed disorder of acid-base balance; K92.1 Melena; E87.1 Hypo-osmolality and hyponatremia; E44.0 Moderate protein-calorie malnutrition; K56.7 Ileus, unspecified; E87.0 Hyperosmolality and hypernatremia; T81.32XA Disruption of internal operation (surgical) wound, not elsewhere classified, initial encounter; T81.43XA Infection following a procedure, organ and space surgical site, initial encounter; F41.8 Other specified anxiety disorders; Z87.891 Personal history of nicotine dependence; E87.5 Hyperkalemia; F10.20 Alcohol dependence, uncomplicated; Z68.22 Body mass index [BMI] 22.0-22.9, adult; D50.0 Iron deficiency anemia secondary to blood loss (chronic); B96.20 Unspecified Escherichia coli [E. coli] as the cause of diseases classified elsewhere
CPT/HCPCS: 99223; 99231-AI; 99232-AI; 99233-AI; A4217; A4314; A9284; A9540; A9567; B4087; C1751; C1894; C9113; J0330; J0610; J0696; J1170; J1200; J1450; J1644; J1815; J2060; J2250; J2270; J2405; J2543; J2550; J2704; J2916; J2997; J3010; J3370; J3475; J3480; J7030; J7040; J7050; J7060; J7070; J7120; J7131; P9016; Q9967

== ENCOUNTER → 2019-04-13 | Outpatient (CLI) | payer BC ==
[~2019-04-13] MED LIST: ATIVAN 0.50.5 MG/TAB PO; CIPRO 500MG TA500 MG PO; DEMADEX10 MG PO; FERROUS SU325 MG/TAB PO; FLAGYL500 MG PO; FREESTYLE PREC1 EAC5 MC; GLUCOPHAGE500 MG/TAB PO; GLUCOSE TEST ST1 DEV MC; ISTALOL 2.5 ML2.5 ML OU; LANCETS MC; MULTIPLE VITAMI1 CAP PO; NORCO 325 MG-51 TAB PO; PRISTIQ 50 MG T50 MG PO; SENOKOT S 50 MG1 TAB PO; TOPROL XL 25MG25 MG PO; XALATAN EYE DROPS OU
[2019-04-13 18:18] LABS: HEMOGLOBIN 10.9 g/dl (13.5-18.0); MEAN CELL VOLUME 85 fl (80.0-100.0); MEAN CORPUSCULAR HEMOGLOBIN 26 pg (27.0-31.0); MEAN CORPUSCULAR HGB CONC 31 g/dl (33.0-37.0); MEAN PLATELET VOLUME 10.7 fl (7.4-10.4); PLATELET COUNT 573 K/mm3 (130-400); RED BLOOD COUNT 4.13 M/mm3 (4.20-5.60); REDCELL DISTRIBUTION WIDTH-CV 14.8 % (11.5-14.5)
[2019-04-13 18:20] LABS: ALBUMIN 3.7 gm/dL (3.5-5.0); BILIRUBIN,TOTAL 0.6 mg/dL (0.0-1.0); CALCIUM 10.2 mg/dL (8.4-10.2); CREATININE, serum 1.11 (0.66-1.25); POTASSIUM 4.4 mmol/L (3.4-5.0); TOTAL PROTEIN 7.4 gm/dL (6.4-8.2)
[2019-04-13 18:27] LABS: PRE ALBUMIN 24.4 mg/dL (17.6-36.0)
[2019-04-13 19:05] LABS: HEMATOCRIT 35.2 % (42.0-52.0)
== END ==
LOC: ZCOL.LAB 17:58
PROVIDERS: Surgery
DX: Z48.89 Encounter for other specified surgical aftercare (principal)

== ENCOUNTER → 2019-05-03 | Outpatient (CLI) | payer BC | LOC: ZCOL.LAB 16:26 | DX: T81.49XA Infection following a procedure, other surgical site, initial encounter (principal) ==

== ENCOUNTER → 2019-05-16 | Outpatient (CLI) | payer BC ==
[2019-05-16 10:26] LABS: MEAN CELL VOLUME 82 fl (80.0-100.0); MEAN CORPUSCULAR HEMOGLOBIN 25 pg (27.0-31.0); MEAN CORPUSCULAR HGB CONC 31 g/dl (33.0-37.0); MEAN PLATELET VOLUME 10.6 fl (7.4-10.4); PLATELET COUNT 403 K/mm3 (130-400); RED BLOOD COUNT 3.94 M/mm3 (4.20-5.60); REDCELL DISTRIBUTION WIDTH-CV 16.3 % (11.5-14.5)
[2019-05-16 10:34] LABS: ALBUMIN 3.8 gm/dL (3.5-5.0); BILIRUBIN,TOTAL 0.6 mg/dL (0.0-1.0); CREATININE, serum 0.88 (0.66-1.25); POTASSIUM 3.8 mmol/L (3.4-5.0); TOTAL PROTEIN 7.5 gm/dL (6.4-8.2)
[2019-05-16 10:42] LABS: HEMATOCRIT 32.2 % (42.0-52.0)
== END ==
LOC: COL.LAB 10:04
PROVIDERS: Surgery
DX: Z01.812 Encounter for preprocedural laboratory examination (principal)

== ENCOUNTER → 2019-05-18 | Outpatient (CLI) | payer BC | LOC: COL.RAD 07:05 | DX: T81.49XA Infection following a procedure, other surgical site, initial encounter (principal); N20.0 Calculus of kidney; R16.1 Splenomegaly, not elsewhere classified | CPT/HCPCS: Q9967 ==

== ENCOUNTER → 2019-05-25 | Outpatient (CLI) | payer BC ==
[2019-05-25 10:16] LABS: BASO % 0.4 % (0.0-2.0); EOS # 0.1 (0.0-0.7); EOS % 1.2 % (0-4.0); GRAN % 81.4 % (42.2-75.2); LYMPH # 0.9 (1.2-3.4); LYMPH % 11.6 % (20.0-51.0); MEAN CELL VOLUME 81 fl (80.0-100.0); MEAN CORPUSCULAR HGB CONC 30 g/dl (33.0-37.0); MEAN PLATELET VOLUME 10.2 fl (7.4-10.4); MONO # 0.4 (0.1-0.6); MONO % 4.7 % (1.7-9.3); PLATELET COUNT 402 K/mm3 (130-400); RED BLOOD COUNT 3.65 M/mm3 (4.20-5.60); REDCELL DISTRIBUTION WIDTH-CV 15.7 % (11.5-14.5)
[2019-05-25 10:34] LABS: ALBUMIN 3.5 gm/dL (3.5-5.0); BILIRUBIN,TOTAL 0.4 mg/dL (0.0-1.0); CALCIUM 9.8 mg/dL (8.4-10.2); CREATININE, serum 0.87 (0.66-1.25); POTASSIUM 3.7 mmol/L (3.4-5.0); TOTAL PROTEIN 6.9 gm/dL (6.4-8.2)
[2019-05-25 10:46] LABS: HEMATOCRIT 29.6 % (42.0-52.0); HEMOGLOBIN 8.9 g/dl (13.5-18.0); MEAN CORPUSCULAR HEMOGLOBIN 24 pg (27.0-31.0)
== END ==
LOC: COL.LAB 09:09
PROVIDERS: Surgery
DX: T81.49XA Infection following a procedure, other surgical site, initial encounter (principal)

== ENCOUNTER → 2019-07-25 | Outpatient (CLI) | payer BC ==
[2019-07-25 09:57] LABS: HEMATOCRIT 26.4 % (42.0-52.0); HEMOGLOBIN 7.7 g/dl (13.5-18.0); MEAN CELL VOLUME 78 fl (80.0-100.0); MEAN CORPUSCULAR HEMOGLOBIN 23 pg (27.0-31.0); MEAN CORPUSCULAR HGB CONC 29 g/dl (33.0-37.0); MEAN PLATELET VOLUME 9.7 fl (7.4-10.4); PLATELET COUNT 484 K/mm3 (130-400); RED BLOOD COUNT 3.39 M/mm3 (4.20-5.60); REDCELL DISTRIBUTION WIDTH-CV 16.1 % (11.5-14.5)
[2019-07-25 10:08] LABS: ALBUMIN 3.8 gm/dL (3.5-5.0); BILIRUBIN,TOTAL 0.4 mg/dL (0.0-1.0); CALCIUM 9.6 mg/dL (8.4-10.2); CREATININE, serum 1.06 (0.66-1.25); POTASSIUM 4.6 mmol/L (3.4-5.0); TOTAL PROTEIN 7.1 gm/dL (6.4-8.2)
== END ==
LOC: COL.RAD 08:31
PROVIDERS: Surgery
DX: K63.2 Fistula of intestine (principal)

== ENCOUNTER → 2019-07-28 | Outpatient (CLI) | payer BC | LOC: COL.RAD 10:52 | DX: K63.2 Fistula of intestine (principal); N32.89 Other specified disorders of bladder | CPT/HCPCS: Q9967 ==

== ENCOUNTER 2019-08-02 14:43 | Inpatient (IN) | payer BC ==
[~2019-08-02] VITALS: Ht 180.3 cm; Wt 66.5 kg
[2019-08-16] MEDS ORDERED: NATURAL IRON65 MG PO (11:35)
[2019-08-16] MEDS ORDERED: MAGNESIUM250 M1 PO (11:37)
[2019-08-16] MEDS ORDERED: XANAX 0.5MG0.5 MG PO (11:38)
[2019-08-16] MEDS ORDERED: GLUCOPHAGE500 MG/TAB PO (11:39)
[2019-08-16] MEDS ORDERED: NORCO 325 MG-51 TAB PO (11:40)
[2019-08-16] MEDS ORDERED: TOPROL XL 50MG50 MG PO (11:41)
[2019-08-16] MEDS ORDERED: B-121000 MCG PO (11:44)
[2019-08-19] VITALS (13 sets, daily range): BP systolic 99–120; BP diastolic 58–79; PULSE 80–96; TEMP 97.5–98.2
--- NOTE | 2019-08-19 06:00 | NUR ---
Patient arrives to [facility] independently with steady gait at 0530. He is alert and oriented. He does not have any visitors accompanying him. He denies leaving a contact number for the doctor to call with updates, but states his aunt, Eda, may be in the waiting room later. Procedure confirmed, denies any questions, and verbalizes understanding. VSS and WNL on room air. His skin color is pale. Breath sounds clear bilaterally to auscultation. Clear S1S2 heart tones heard with regular rate noted. PERRLA. +2 radial, DP, and PT pulses bilaterally. Strong machine ii coremaker and pedal strength bilaterally. Abdomen is tender where fistula is located. Bowel sounds are active and audible. Denies any pain, numbness, or tingling. PIV started in right hand with x1 attempt and without complication. Pre-op labs drawn: BG, T+S, CBC, PT panel - results pending. Call light usage taught and within reach. Will continue to monitor.
[2019-08-19 06:07] LABS: BASO % 0.4 % (0.0-2.0); EOS # 0.1 (0.0-0.7); EOS % 1.3 % (0-4.0); GRAN # 3.4 (1.4-6.5); GRAN % 76.3 % (42.2-75.2); LYMPH # 0.6 (1.2-3.4); LYMPH % 12.7 % (20.0-51.0); MEAN CELL VOLUME 77 fl (80.0-100.0); MEAN CORPUSCULAR HGB CONC 30 g/dl (33.0-37.0); MONO # 0.4 (0.1-0.6); MONO % 8.9 % (1.7-9.3); PLATELET COUNT 439 K/mm3 (130-400); RED BLOOD COUNT 4.21 M/mm3 (4.20-5.60); REDCELL DISTRIBUTION WIDTH-CV 17.3 % (11.5-14.5)
[2019-08-19 06:20] LABS: INR 1.3 (0.8-3.0); PROTHROMBIN TIME 15.7 SECONDS (9.7-12.8)
[2019-08-19 06:31] LABS: HEMATOCRIT 32.4 % (42.0-52.0); HEMOGLOBIN 9.6 g/dl (13.5-18.0); MEAN CORPUSCULAR HEMOGLOBIN 23 pg (27.0-31.0)
--- NOTE | 2019-08-19 06:39 | NUR ---
Labs resulted - results reported to Michael Husain CRNA.
--- NOTE | 2019-08-19 06:40 | NUR ---
Patient to PACU for epidural. Patient's belongings (duffel bag x1, patient belonging bag x1) taken to PACU with patient vehicle modification technician them.
--- NOTE | 2019-08-19 14:10 | NUR ---
Reported on to edgar Royal RN.
--- NOTE | 2019-08-19 15:02 | NUR ---
Patient alert and oriented, answers questions appropriately. See assessment. Abdomen soft, non distended. Bowel sounds absent x4 quads. No flatus. Midline incision with upper end sandi intact, lower end with wound vac in place to 125mmhg, no drainage noted in container. Torres catheter in place and patent, draining clear yellow urine. Epidural catheter in place, PCEA setting verified against the MAR. No numbness or tingling noted to BLE, sensation and pulses intact. ERAS protocol reviewed with patient. No c/o at this time.
--- NOTE | 2019-08-19 18:38 | NUR ---
Reported off to primary CRISTINE Underwood.
--- NOTE | 2019-08-19 19:56 | NUR ---
UNABLE TO PROVIDE AN INSENTIVE SPIROMETER AT THIS TIME. AWAITING DELIVERY.
--- NOTE | 2019-08-20 01:44 | NUR ---
Patient resting in bed. Epidural in place and patient states pain 12/09. Torres catheter draining clear yellow urine. Wound vac to midline incision on abdomen. Fluids running to right wrist. Zosyn given per orders. Patient currently resting in bed with eyes closed. Will continue to monitor.
[2019-08-20 03:28] VITALS: BP 105/73; PULSE 85; TEMP 98.2
[2019-08-20 06:57] LABS: BASO % 0.5 % (0.0-2.0); EOS % 0.5 % (0-4.0); GRAN # 6.3 (1.4-6.5); LYMPH # 0.6 (1.2-3.4); LYMPH % 8.4 % (20.0-51.0); MEAN CELL VOLUME 78 fl (80.0-100.0); MEAN CORPUSCULAR HGB CONC 28 g/dl (33.0-37.0); MEAN PLATELET VOLUME 10.3 fl (7.4-10.4); MONO # 0.6 (0.1-0.6); MONO % 7.2 % (1.7-9.3); PLATELET COUNT 413 K/mm3 (130-400); RED BLOOD COUNT 3.62 M/mm3 (4.20-5.60); REDCELL DISTRIBUTION WIDTH-CV 17.1 % (11.5-14.5)
[2019-08-20 07:06] LABS: CALCIUM 8.4 mg/dL (8.4-10.2); CREATININE, serum 0.99 (0.66-1.25)
[2019-08-20 07:31] LABS: HEMATOCRIT 28.3 % (42.0-52.0); MEAN CORPUSCULAR HEMOGLOBIN 22 pg (27.0-31.0)
--- NOTE | 2019-08-20 08:00 | NUR ---
PATIENT IS RESTING IN BED THIS MORNING. PATIENT IS A&OX4. TACHYCARDIA WITH REGULAR RHYTHM NOTED. SOFT PRESSURES, OTHERWISE VSS. BOWEL SOUNDS ACTIVE ALL FOUR QUADRANTS. ABDOMEN IS DISTENDED BUT SOFT TO PALPATION. MIDLINE ABDOMINAL INCISION LEX INTACT. WOUND VAC IN PLACE. WOUND VAC TEGADERM IN PLACE AND IS CD&I. BACK EPIDURAL SITE DRESSED WITH TEGADERM AND ORANGE GAUZE AND IS CD&I. INDWELLING GARCIA CATHETER TO DEPENDENT DRAINAGE WITH YENNI URINE AND MUCOUS PRESENT IN THE CATHETER BAG. IV FLUIDS INFUSING TO RIGHT WRIST IV VIA PUMP. SCD'S TO BLE. CALL LIGHT WITHIN REACH. PATIENT DENIES ANY OTHER NEEDS AT THIS TIME.
[2019-08-20 08:04] VITALS: BP 94/66; PULSE 97; TEMP 97.8
--- NOTE | 2019-08-20 10:07 | NUR ---
PATIENT REPORTS THAT HIS EPIDURAL IS LEAKING. DRESSING APPEARS TO BE INTACT. ANESTHEIA PAGED AND NOTIFIED. ANESTHESIA WILL COME BY AND CHECK THE PATIENT'S EPIDURAL SITE.
--- NOTE | 2019-08-20 11:07 | NUR ---
VOICEMAIL FOR WOUND CARE CONSULT LEFT WITH VALE CARBAJAL.
[2019-08-20 12:00] VITALS: BP 84/59; PULSE 90; TEMP 97.6
--- NOTE | 2019-08-20 15:42 | NUR ---
Plan:To return home. SM initiated that he wants his mother and father Shital Mujica [phone] as EMR contacts. SM does not have a DPOA and declined to have one at this time. Patient resides in [facility], and lives alone. Assess: SW's met with patient. Patient reports that he does not use DME's at home, and that his PCP is Dr. Powell. Patient reports that he does have a follow up appointment scheduled on September 02, 2019. [facility] with [facility]. Action: No additional concerns were identified. Patient notes that he will be well enough to transport himself home. Patient was educated on community resources and supports.
[2019-08-20 16:54] VITALS: BP 91/58; PULSE 95; TEMP 98.5
--- NOTE | 2019-08-20 19:05 | NUR ---
REPORT GIVEN TO CRISTINE GREEN.
--- NOTE | 2019-08-20 19:31 | NUR ---
Wound vac alerted that there was no suction. Appeared to be a clot in the line. Wound vac taken down and new dressing applied. Patient tolerated this well. Wound vac now functioning correctly. Will continue to monitor.
[2019-08-20 19:32] VITALS: BP 99/65; PULSE 105; TEMP 98.7
[2019-08-20 23:33] VITALS: BP 97/65; PULSE 119; TEMP 98.6
--- NOTE | 2019-08-21 01:23 | NUR ---
Patient ambulated in hallway and started to complain of a lot of pressure to epidural site. No fluid noted under dressing, patient denied numbness/tingling to legs. Gait steady. Patient laid down and then started to complain of nausea and increased pressure to epidural site. PRN Zofran administered and Anesthesia (Efrain Garza) notified about situation. Efrain came in and changed the dressing to epidural site and immediately fluid started dripping from site. Patient verbalized some relief. Efrain stated it would continue to drain and to call Dr. Raines in the morning for orders to discontinue epidural and to make sure Lovenox was held in the morning. Will continue to monitor patient.
[2019-08-21 05:20] VITALS: BP 100/62; PULSE 115; TEMP 98.7
--- NOTE | 2019-08-21 06:32 | NUR ---
Patient resting in bed with eyes closed. Continues to state pain 1/10 to abdomen while awake, but has rested with eyes closed off and on. Will report off to day shift nurse.
[2019-08-21 07:52] VITALS: BP 93/60; PULSE 113; TEMP 98.7
--- NOTE | 2019-08-21 08:00 | NUR ---
PATIENT IS RESTING IN BED THIS MORNING. PATIENT IS A&OX4. TACHYCARDIA WITH REGULAR RHYTHM NOTED. SOFT PRESSURES, VSS. BOWEL SOUNDS ACTIVE ALL FOUR QUADRANTS. PATIENT TOLERATING SMALL AMOUNTS OF FULL LIQUIDS WITHOUT ANY COMPLAINTS OF NAUSEA OR VOMITING. ABDOMEN IS DISTENDED BUT SOFT TO PALPATION. UPPER MIDLINE ABDOMINAL INCISION LEX INTACT WITH EDGES WELL APPROXIMATED. WOUND VAC IN PLACE OVER DISTAL PORTION OF MIDLINE INCISION WITH WOUND VAC TEGADERM DRESSING IN PLACE AND IS CD&I. BACK EPIDURAL SITE DRESSED WITH TEGADERM AND ORANGE TAPE AND IS CD&I. INDWELLING GARCIA CATHETER TO DEPENDENT DRAINAGE WITH YENNI URINE AND SEDIMENT PRESENT IN THE CATHETER BAG. IV FLUIDS INFUSING TO RIGHT WRIST IV VIA PUMP. SCD'S TO BLE. CALL LIGHT WITHIN REACH. PATIENT DENIES ANY OTHER NEEDS AT THIS TIME.
--- NOTE | 2019-08-21 10:22 | NUR ---
ЕЛЕНА WITH ANESTHESIA CALLED AND NOTIFIED TO DISCONTINUE PATIENT'S EPIDURAL.
--- NOTE | 2019-08-21 11:06 | NUR ---
PATIENT STARTED ON PO OXYCODONE FOR PAIN. EPIDURAL STOPPED PER ANESTHESIA. WILL WAIT FOR ANESTHESIA TO PULL EPIDURAL.
--- NOTE | 2019-08-21 12:40 | NUR ---
GARCIA CATHETER DISCONTINUED PER ORDERS. 9 ML OF STERILE WATER ASPIRATED FROM BALLOON. BALLOON TIP INTACT. PATIENT TOLERATED WELL.
[2019-08-21 13:31] VITALS: BP 98/65; PULSE 104; TEMP 98.1
[2019-08-21 16:00] VITALS: BP 97/59; PULSE 96; TEMP 98.1
--- NOTE | 2019-08-21 19:02 | NUR ---
REPORT GIVEN TO CRISTINE GREEN.
--- NOTE | 2019-08-21 19:09 | NUR ---
Report received from CRISTINE Bray. Patient in the bathroom at time of bedside shift report.
[2019-08-21 19:57] VITALS: BP 106/66; PULSE 105; TEMP 97.4
[2019-08-22 01:08] VITALS: BP 105/65; PULSE 111; TEMP 99.5
--- NOTE | 2019-08-22 04:11 | NUR ---
Patient states the oral pain medication isn't effective for pain control. States the doctor said, "something about adding the IV stuff". No IV pain medications noted PRN. Patient educated on pain control and how we can't completely relieve pain. Patient verbalized understanding. Upon reassessment of pain after PRN Oxycodone, patient has been sleeping. Noted to be an increase in drainage from wound vac. Will continue to monitor this.
[2019-08-22 05:01] VITALS: BP 109/68; PULSE 105; TEMP 97.5
[2019-08-22 06:28] LABS: BASO % 0.3 % (0.0-2.0); EOS # 0.1 (0.0-0.7); EOS % 0.4 % (0-4.0); GRAN # 12.9 (1.4-6.5); GRAN % 88.3 % (42.2-75.2); LYMPH # 0.7 (1.2-3.4); LYMPH % 5.1 % (20.0-51.0); MEAN CELL VOLUME 79 fl (80.0-100.0); MEAN CORPUSCULAR HGB CONC 29 g/dl (33.0-37.0); MEAN PLATELET VOLUME 10.4 fl (7.4-10.4); MONO # 0.8 (0.1-0.6); MONO % 5.4 % (1.7-9.3); PLATELET COUNT 492 K/mm3 (130-400); RED BLOOD COUNT 3.57 M/mm3 (4.20-5.60)
[2019-08-22 06:32] LABS: HEMATOCRIT 28.3 % (42.0-52.0); HEMOGLOBIN 8.1 g/dl (13.5-18.0); MEAN CORPUSCULAR HEMOGLOBIN 23 pg (27.0-31.0)
[2019-08-22 06:41] LABS: CALCIUM 8.6 mg/dL (8.4-10.2); CREATININE, serum 0.99 (0.66-1.25); POTASSIUM 3.5 mmol/L (3.4-5.0)
--- NOTE | 2019-08-22 08:00 | NUR ---
Patient in bed resting. Alert and oriented x 3. Shift assessment complete. Midline incision with sandi intact, edges well approximated. Wound vac in place to midline incision green drainage noted to distal end of wound vac placement. Increased drainage noted to wound vac canister. Patient states he has done well with diet. Denies further needs at this time.
--- NOTE | 2019-08-22 08:05 | NUR ---
Contacted Dr. Olu bull patient VS and increased output from wound Vac. Will continue to monitor.
[2019-08-22 08:10] VITALS: BP 96/62; PULSE 107; TEMP 98
--- NOTE | 2019-08-22 09:57 | NUR ---
Contacted Wound care for consult
[2019-08-22 11:15] VITALS: BP 103/71; PULSE 106; TEMP 98.2
[2019-08-22 15:25] VITALS: BP 104/66; PULSE 104; TEMP 97.5
--- NOTE | 2019-08-22 16:10 | NUR ---
Contacted Dr. Raines, patient wound drainage appears green, patient states output increases each time he attempts to have BM. Will continue to monitor.
--- NOTE | 2019-08-22 18:07 | NUR ---
Patient has done well throughout the day. Has been up ambulating in halls. Wound Vac changed this afternoon. Canister changed. Denies further needs at this time. Will report off to mine shifter.
[2019-08-22 20:27] VITALS: BP 102/64; PULSE 109; TEMP 98.2
[2019-08-23] VITALS (19 sets, daily range): BP systolic 100–136; BP diastolic 64–84; PULSE 71–112; TEMP 97.5–98.5
--- NOTE | 2019-08-23 06:14 | NUR ---
Patient requests pain medication every 4 hours. PRN Zofran given twice this shift, as patient states he feels nauseous. Patient also states he overall doesn't feel well, that he feels weak and tired. Wound vac drainage continues to have a greenish output. Patient stands to belch at times. Patient to go for scans this morning and has been NPO with sips and chips since midnight. Remains afebrile. Will report off to day shift nurse.
[2019-08-23 06:39] LABS: MEAN CELL VOLUME 79 fl (80.0-100.0); MEAN CORPUSCULAR HGB CONC 29 g/dl (33.0-37.0); MEAN PLATELET VOLUME 10.2 fl (7.4-10.4); RED BLOOD COUNT 2.89 M/mm3 (4.20-5.60)
[2019-08-23 06:46] LABS: ALBUMIN 2.4 gm/dL (3.5-5.0); BILIRUBIN,TOTAL 0.2 mg/dL (0.0-1.0); CALCIUM 8.5 mg/dL (8.4-10.2); POTASSIUM 3.8 mmol/L (3.4-5.0)
[2019-08-23 07:11] LABS: HEMATOCRIT 22.7 % (42.0-52.0); HEMOGLOBIN 6.5 g/dl (13.5-18.0); MEAN CORPUSCULAR HEMOGLOBIN 22 pg (27.0-31.0)
[2019-08-23 07:12] LABS: PLATELET COUNT 377 K/mm3 (130-400)
--- NOTE | 2019-08-23 07:15 | NUR ---
Contacted Dr. Raines for critical hemogolobin of 6.5. 2units of PRBC, orders entered. Patient symptomatic.
[2019-08-23 07:39] LABS: ANISOCYTOSIS 1+; LYMPHOCYTE 8 % (20.0-51.0); NEUTROPHILS 89 % (42.0-75.2); PLATELET ESTIMATE NORMAL (NORMAL)
--- NOTE | 2019-08-23 08:30 | NUR ---
Contacted Lab to follow up on PRBC order.
--- NOTE | 2019-08-23 08:50 | NUR ---
Patient in bed resting. Alert and oriented x 3. Shift assessment complete. Midline incision with wound vac present. Green/brown drainage present to distal end of wound vac, with drainage present in canister. Patient denies pain at this time. IV fluids infusing per orders via pump. Denies further needs at this time.
--- NOTE | 2019-08-23 10:38 | NUR ---
Patient down for CT
--- NOTE | 2019-08-23 16:01 | NUR ---
Patient down to OR
--- NOTE | 2019-08-23 19:45 | NUR ---
Report received from PACU. Arrived to room via bed. VS stable. Very flat affect-requesting pulse ox be removed, SCDs and blood pressure cuff. Came to agreement of taking off and reapplying when VS are due. 18g to LH-fluids infusing without difficulty. 18g IV to RH red and swollen-states is painful. Removed-cath intact. Discussed plan of care-states he is not ready to see colostomy. Did let this nurse look at [id number]. Colostomy with dark brown/black fluid. States he will let us know when he is ready to discuss his procedure. Denies needs. Will continue to monitor.
[2019-08-24] VITALS: BP 117/78; PULSE 110; TEMP 97.5
--- NOTE | 2019-08-24 04:00 | NUR ---
Has rested off and on this shift-pain controlled with roxicodone-morphine x2 for break through. Up out of bed at this time. Stood and took a few steps. C/O nausea. Miguel per dr monsalve. Did seem more interested in colostomy-visualized bag and asked a few questions. States "I dont want this thing." When this tried to discuss more states he isnt ready yet. Output dark brown/black-30mls. Wound vac with small amount-approx 30mls of serosang fluid. Denies questions or concerns at this time. Has not tolerated much PO. Did have some H2O but refused anything else this shift. Will monitor.
[2019-08-24 05:11] VITALS: BP 125/77; PULSE 107; TEMP 97.6
--- NOTE | 2019-08-24 08:00 | NUR ---
PATIENT IS LAYING IN BED THIS MORNING. PATIENT IS DROWSY, BUT AROUSES EASILY TO NAME. PATIENT PALE IN COLOR. PATIENT IS A&OX4. TACHYCARDIA WITH REGULAR RHYTHM, VSS. BOWEL SOUNDS HYPOACTIVE ALL FOUR QUADRANTS. ABDOMEN IS DISTENDED BUT SOFT TO PALPATION. PROXIMAL MIDLINE INCISION DRESSED WITH GAUZE AND HYPAFIX AND IS CD&I. WOUND VAC IN PLACE OVER DISTAL PORTION OF MIDLINE INCISION TEGADERM DRESSING IN PLACE AND IS CD&I. SMALL AMOUNTS OF BLOODY DRAINAGE PRESENT IN WOUND VAC CANISTER. WOUND VAC TO CONTINUOUS SUCTION. COLOSTOMY TO LEFT-SIDE OF ABDOMEN. COLOSTOMY BAG AND WAFER IN PLACE AND DRAINING SMALL AMOUNTS OF BLACK, THIN COFFEE GROUND LIKE LIQUID. COLOSTOMY BAG AND WAFER IN PLACE AND ARE CD&I. STOMA ROUND, RED AND PROTRUDING. PATIENT PASSING FLATUS THROUGH OSTOMY. PATIENT TOLERATING SMALL AMOUNTS OF CLEAR LIQUIDS WITH SOME NAUSEA. PATIENT DENIES ANY EPISODES OF EMESIS. INDWELLING GARCIA CATHETER TO DEPENDENT DRAINAGE WITH CLEAR, PALE YELLOW URINE PRESENT IN GARCIA BAG. 2+ PITTING-EDEMA TO FEET BILATERALLY. SCD'S TO BLE. IV FLUIDS INFUSING TO RIGHT HAND IV VIA PUMP. CALL LIGHT WITHIN REACH. PATIENT DENIES ANY OTHER NEEDS AT THIS TIME.
[2019-08-24 08:12] VITALS: BP 126/85; PULSE 103; TEMP 98.1
[2019-08-24 09:12] LABS: ALBUMIN 2.4 gm/dL (3.5-5.0); BILIRUBIN,TOTAL 0.5 mg/dL (0.0-1.0); CALCIUM 8.1 mg/dL (8.4-10.2); CREATININE, serum 1.05 (0.66-1.25); MAGNESIUM 1.7 mg/dL (1.6-2.3); PHOSPHOROUS 4.5 mg/dL (2.5-4.5); POTASSIUM 4.2 mmol/L (3.4-5.0)
[2019-08-24 09:19] LABS: PRE ALBUMIN 9.4 mg/dL (17.6-36.0)
[2019-08-24 09:29] LABS: BASO % 0.3 % (0.0-2.0); EOS # 0.1 (0.0-0.7); EOS % 0.5 % (0-4.0); GRAN # 11.1 (1.4-6.5); GRAN % 87.1 % (42.2-75.2); LYMPH # 0.8 (1.2-3.4); MEAN CELL VOLUME 80 fl (80.0-100.0); MEAN CORPUSCULAR HGB CONC 29 g/dl (33.0-37.0); MEAN PLATELET VOLUME 10.3 fl (7.4-10.4); MONO # 0.7 (0.1-0.6); MONO % 5.3 % (1.7-9.3); REDCELL DISTRIBUTION WIDTH-CV 17.2 % (11.5-14.5)
[2019-08-24 09:35] LABS: HEMATOCRIT 36.2 % (42.0-52.0); HEMOGLOBIN 10.6 g/dl (13.5-18.0); MEAN CORPUSCULAR HEMOGLOBIN 24 pg (27.0-31.0); PLATELET COUNT 659 K/mm3 (130-400)
[2019-08-24 11:21] VITALS: BP 125/80; PULSE 100; TEMP 97.6
[2019-08-24 16:33] VITALS: BP 117/80; PULSE 93; TEMP 97.6
--- NOTE | 2019-08-24 18:00 | NUR ---
PATIENTS GARCIA CATHTER DISCONTINUED PER DR. BARRIOS ORDERS. 10 MLS OF STERILE SALINE ASPIRATED FROM BALLOON. BALLOON TIP INTACT. PATIENT TOLERATED WELL. PATIENT DENIES ANY OTHER NEEDS AT THIS TIME.
--- NOTE | 2019-08-24 19:11 | NUR ---
REPORT GIVEN TO CRISTINE HUBBARD.
[2019-08-24 20:00] VITALS: BP 112/72; PULSE 99; TEMP 8.4
--- NOTE | 2019-08-24 20:00 | NUR ---
Report received-Assumed care for manager interface. Asessment complete. VS stable. Very flat affect this shift. States he met with ostomy nurse and it was helpful but he still doesnt want "this thing." Does realize that it is necessary for healing. Pain rated 3/10-described as ache in midline abdomen. Received Roxicodone per dr order at 1900 stating it helped. Dressing to midline C/D/I. Colostomy with dark green fluid with some black coffee grounds. TPN infusing at 77ml/hr to right upper arm PICC. Denies any needs. Call light in reach. Bed in low position/wheels locked. WIll monitor.
[2019-08-25 00:40] VITALS: BP 113/75; PULSE 95; TEMP 97.9
[2019-08-25 04:52] VITALS: BP 111/73; PULSE 97; TEMP 98.5
[2019-08-25 07:00] LABS: CALCIUM 7.8 mg/dL (8.4-10.2); CREATININE, serum 0.9 (0.66-1.25); MAGNESIUM 2.1 mg/dL (1.6-2.3); PHOSPHOROUS 2.2 mg/dL (2.5-4.5); POTASSIUM 3.7 mmol/L (3.4-5.0)
[2019-08-25 08:27] VITALS: BP 123/73; PULSE 90; TEMP 97.8
--- NOTE | 2019-08-25 08:32 | NUR ---
Pt resting in bed upon entering room, eyes closed but easily aroused. Pt refused to get up to recliner this morning, agreed to walk but wanted to wait on second IV to finish first. Pt is somnolent but cooperative with cares, very flat affect. Call light in reach and will continue to montior.
--- NOTE | 2019-08-25 09:56 | NUR ---
Patient in bed resting. Alert and oriented x 3. Shift assessment complete. PICC line to CURT without difficulty. Midline incision with gauze dressing is CDI. Wound vac to distal end of midline with serosanguinous drainage. Colostomy to left lower quadrant, stoma appears red and beefy, having brown/black output. Denies further needs at this time. Denies pain at this time.
[2019-08-25 12:53] VITALS: BP 117/78; PULSE 88; TEMP 98.4
--- NOTE | 2019-08-25 13:23 | NUR ---
Pt resting in bed with his eyes closed at this time. No further needs expressed, call light within reach. Primary nurse to resume care and will continue to monitor.
[2019-08-25 16:07] VITALS: BP 115/75; PULSE 89; TEMP 98.5
--- NOTE | 2019-08-25 18:21 | NUR ---
Patient is in bed sleeping. denies any complaints at this time.
--- NOTE | 2019-08-25 19:19 | NUR ---
Patient has done well throughout the day, has been up ambulating with student. TPN continues to infuse without difficulty to CURT PICC line. Midline incision remains CDI. Wound Vac with minimal drainage present. Ostomy appliance changed this afternoon by ostomy SAFETY PIN ASSEMBLING MACHINE OPERATOR. Zofran given per orders. Patient denies further needs at this time. Reported off to night shift supervisor.
[2019-08-25 19:46] VITALS: BP 129/86; PULSE 85; TEMP 98.9
[2019-08-26] VITALS (9 sets, daily range): BP systolic 110–135; BP diastolic 66–87; PULSE 74–101; TEMP 97.9–98.5
--- NOTE | 2019-08-26 05:59 | NUR ---
Patient has rested well this shift. Pain well controlled with current regimen. TPN running to PICC in right upper arm. Education provided on how a PICC line works in regards to different medications. Phenergan given this morning for nausea. Awaiting results. Wound vac working well. Colostomy draining dark brown liquid. Denies any further needs. Will continue to monitor.
[2019-08-26 06:35] LABS: CALCIUM 7.8 mg/dL (8.4-10.2); CREATININE, serum 0.73 (0.66-1.25); POTASSIUM 3.7 mmol/L (3.4-5.0)
[2019-08-26 06:49] LABS: MAGNESIUM 2.2 mg/dL (1.6-2.3); PHOSPHOROUS 2.4 mg/dL (2.5-4.5)
--- NOTE | 2019-08-26 08:06 | NUR ---
Pt resting in bed with eyes closed upon entering room. Cooperative with cares, but flat affect. Voiding well, wound vac to lower abdomen is intact with minimal amount of drainage in chamber. Nausea has improved with earlier dose of PRN medicaiton and rates pain at a 4/10 in the abdomen. No further needs addressed at this time, will continue to monitor.
--- NOTE | 2019-08-26 09:12 | NUR ---
Initial visit; Patient thanked Regional Tanker Truck Driver for introducing herself though declined spiritual care. Regional Tanker Truck Driver wishes Yrn a good recovery.
[2019-08-26 09:39] LABS: BASO % 0.3 % (0.0-2.0); EOS # 0.1 (0.0-0.7); EOS % 1.3 % (0-4.0); GRAN # 4.9 (1.4-6.5); GRAN % 79.7 % (42.2-75.2); LYMPH # 0.7 (1.2-3.4); LYMPH % 11.4 % (20.0-51.0); MEAN CELL VOLUME 81 fl (80.0-100.0); MEAN CORPUSCULAR HGB CONC 30 g/dl (33.0-37.0); MEAN PLATELET VOLUME 10.1 fl (7.4-10.4); MONO # 0.4 (0.1-0.6); MONO % 6.8 % (1.7-9.3); RED BLOOD COUNT 3.09 M/mm3 (4.20-5.60); REDCELL DISTRIBUTION WIDTH-CV 17.8 % (11.5-14.5)
[2019-08-26 09:40] LABS: HEMOGLOBIN 7.4 g/dl (13.5-18.0); MEAN CORPUSCULAR HEMOGLOBIN 24 pg (27.0-31.0); PLATELET COUNT 456 K/mm3 (130-400)
--- NOTE | 2019-08-26 10:00 | NUR ---
Contacted Dr. Raines about hemoglobin of 7.4 will continue to monitor. No new orders.
--- NOTE | 2019-08-26 13:41 | NUR ---
Pt resting in bed with eyes close, TV on. Pt was more active in learning about colostomy care this part of the shift. He did empty the colostomy himself with limited assistance and small verbal cues. States that his nausea is ok at this time and pain is 4/10 but denies at this time any PRN medication. No further needs verbalized at this time, call light in reach. Primary nurse to resume care, will contiue to monitor.
--- NOTE | 2019-08-26 14:12 | NUR ---
SW meet with the patient to revisit his discharge plan. The patient plans to go home and if wound care is needed he will drive himself. The patient inquired about home health for colostomy care. The patient is not homebound and patient would not qualify. SW discussed colostomy care and the patient reports it is just "not comfortable." However, the patient does understands his need to be proactive concerning his colostomy care. The patient's nurse reports the ostomy care nurse will bring resources for the patient regarding support groups. banking services officer will continue to follow to ensure a safe discharge.
--- NOTE | 2019-08-26 15:27 | NUR ---
Contacted Wound care about follow up with wound vac. Per wound clinic will enter orders.
--- NOTE | 2019-08-26 19:11 | NUR ---
Patient has done well throughout the day. Encouraged patient to empty ostomy throughout the day. Ambulated >100 feet this afternoon with stand by assist. Wound vac dressing changed this afternoon per orders. Dehiscence measures approximately 7 cm by 4 cm, slough and granulation tissue present in wound bed. Surrounding edges appear reddened, patient states irritated from wound vac. Pain medication given throuhout the day per patient request and orders. Denies further needs at this time. Reported off to ladle puller.
--- NOTE | 2019-08-27 03:36 | NUR ---
patient resting well in bed, no c/o pain at this time. patient received PRN oxycodone twice this shift so far. patient vss. pt colostomy site clean, dry, intact. patient tpn running well. picc in right upper arm. call light within reach, will continue to monitor
[2019-08-27 04:25] VITALS: BP 121/75; PULSE 76; TEMP 98.5
[2019-08-27 07:44] LABS: CALCIUM 8.1 mg/dL (8.4-10.2); CREATININE, serum 0.71 (0.66-1.25); MAGNESIUM 1.9 mg/dL (1.6-2.3); PHOSPHOROUS 3.5 mg/dL (2.5-4.5); POTASSIUM 3.9 mmol/L (3.4-5.0)
--- NOTE | 2019-08-27 08:00 | NUR ---
Patient in bed resting. Alert and oriented x 3. Shift assessment complete. Midline incision with edges well approximated, Wound Vac to distal portion of incision. Colostomy to left lower quadrant with ostomy appliance intact, liquid drainage present. PICC line to CURT with Tpn infusing per orders. PICC line without complications. Denies further needs at this time.
[2019-08-27 08:46] VITALS: BP 125/81; PULSE 76; TEMP 97.9
[2019-08-27 11:38] LABS: MEAN CELL VOLUME 80 fl (80.0-100.0); MEAN CORPUSCULAR HGB CONC 29 g/dl (33.0-37.0); PLATELET COUNT 469 K/mm3 (130-400); RED BLOOD COUNT 3.16 M/mm3 (4.20-5.60); REDCELL DISTRIBUTION WIDTH-CV 17.9 % (11.5-14.5)
[2019-08-27 11:41] LABS: HEMATOCRIT 25.3 % (42.0-52.0); HEMOGLOBIN 7.4 g/dl (13.5-18.0); MEAN CORPUSCULAR HEMOGLOBIN 23 pg (27.0-31.0)
[2019-08-27 11:48] VITALS: BP 123/82; PULSE 80; TEMP 98.8
[2019-08-27 16:48] VITALS: BP 116/80; PULSE 84; TEMP 98.7
--- NOTE | 2019-08-27 18:10 | NUR ---
Patient has done well throughout the day. Has requested pain medications throughout the day for abdominal pain 5/10 described as burning. Medications given per orders. Denies further needs at this time. Will report off to rn shift mgr.
[2019-08-27 20:00] VITALS: BP 117/76; PULSE 78; TEMP 99.1
[2019-08-27 23:25] VITALS: BP 114/73; PULSE 77; TEMP 98.1
--- NOTE | 2019-08-28 03:53 | NUR ---
Patient requesting pain meds freqently. Stating he is having abdominal pain. Offered to get patient up to walk, patient refused. Patient refused any snacks offered. PRN oxycodone given every 4 hours as he asks for it. Call light within reach, will continue to monitor
[2019-08-28 04:00] VITALS: BP 112/77; PULSE 87; TEMP 98.5
--- NOTE | 2019-08-28 08:00 | NUR ---
Patient sitting up in bed, A&Ox4. VSS. IV CDI, ABX infusing. TPN infusing to CURT PICC. Wound vac lower midline abdomen, old drainage in chamber. Ostomy bag LLQ, stoma pink, bag CDI. Patient rating pain in abdomen 5/10, pain medication given when requested. No further needs expressed from patient. Call light within reach
[2019-08-28 08:13] LABS: CALCIUM 8.6 mg/dL (8.4-10.2); CREATININE, serum 0.73 (0.66-1.25); POTASSIUM 4.1 mmol/L (3.4-5.0)
[2019-08-28 08:17] VITALS: BP 122/85; PULSE 79; TEMP 98.3
--- NOTE | 2019-08-28 11:08 | NUR ---
Ostomy bag changed. Provided patient care and demonstration on how to change ostomy bag. Patient just watched, but will participate in next ostomy bag change. Stoma pink, no irritation or skin concerns around stoma. Patient tolerated well. No further needs expressed from patient. Call light within reach
[2019-08-28 12:14] VITALS: BP 132/84; PULSE 87; TEMP 98
[2019-08-28 16:06] VITALS: BP 127/86; PULSE 87; TEMP 97.8
--- NOTE | 2019-08-28 18:58 | NUR ---
Patient has had an uneventful day. Has reported pain in abdomen and given pain medication when requested. Nurse provided ostomy care and teaching. Wound vac to suction. Midline incision sandi intact, dressing CDI. TPN infusing and patient tolerating well. Patient increasing PO intake and tolerating well. PICC CURT CDI. Patient has been ambulating to the bathroom independently. No further needs expressed from patient. Call light within reach
[2019-08-28 20:18] VITALS: BP 119/79; PULSE 82; TEMP 98.4
--- NOTE | 2019-08-28 22:45 | NUR ---
Patient doing well. Resting in bed. Does ask for PRN pain pill regularly. Patient meds given. Patient is ambulatory in room and voids with no issues. Does of colostomy and is able to empty own bag. Patient has TPN running and tolerated well. Patient does not have any concerns or complaints at this time. Call light within reach, will continue to monitor
[2019-08-29] VITALS: BP 120/79; PULSE 77; TEMP 98.6
[2019-08-29 04:50] VITALS: BP 125/82; PULSE 86; TEMP 97.5
[2019-08-29 06:53] LABS: CREATININE, serum 0.74 (0.66-1.25)
[2019-08-29 07:09] LABS: CALCIUM 8.4 mg/dL (8.4-10.2)
[2019-08-29 07:18] LABS: PHOSPHOROUS 4.3 mg/dL (2.5-4.5)
--- NOTE | 2019-08-29 08:00 | NUR ---
PATIENT IS SITTING UP IN BED THIS MORNING. PATIENT IS A&OX4. VSS. BOWEL SOUNDS ACTIVE ALL FOUR QUADRANTS. PATIENT TOLERATING DIET WITH SOME NAUSEA, BUT PATIENT DENIES VOMITING. PROXIMAL MIDLINE INCISION LEX INTACT, EDGES WELL APPROXIMATED. WOUND VAC IN PLACE OVER DISTAL PORTION OF MIDLINE INCISION AND CONNECTED TO LOW CONTINUOUS SUCTION. WOUNDVAC TEGADERM DRESSING IN PLACE AND IS CD&I. LEFT-SIDED ABDOMINAL COLOSTOMY BAG AND WAFER IN PLACE AND ARE CD&I. STOMA RED, ROUND AND PROTRUDING. SCANT AMOUNTS OF LIQUID GREEN-BROWN COLORED STOOL PRESENT IN OSTOMY BAG. PICC LINE TO RUE WITH TPN INFUSING. POSITIVE PEDAL PULSES EQUAL BILATERALLY. CALL LIGHT WITHIN REACH. PATIENT DENIES ANY OTHER NEEDS AT THIS TIME.
[2019-08-29 08:10] VITALS: BP 110/75; PULSE 86; TEMP 97.6
[2019-08-29 12:00] VITALS: BP 109/70; PULSE 77; TEMP 98
--- NOTE | 2019-08-29 12:54 | NUR ---
THIS NURSE SPOKE WITH THE WOUND CARE OFFICE NURSE. VALE WILL BE BY LATER THIS AFTERNOON TO CHANGE THE PATIENTS WOUND VAC.
[2019-08-29 16:16] VITALS: BP 122/80; PULSE 78; TEMP 97.9
--- NOTE | 2019-08-29 16:30 | NUR ---
WOUND CARE CHANGED PATIENTS ABDOMINAL WOUND VAC DRESSING. PINK GRANULATED TISSUE PRESENT IN ABDOMINAL WOUND.
--- NOTE | 2019-08-29 19:05 | NUR ---
REPORT GIVEN TO CRISTINE HUBBARD.
[2019-08-29 19:35] VITALS: BP 119/73; PULSE 81; TEMP 98.3
--- NOTE | 2019-08-29 20:00 | NUR ---
Patient alert and oriented, able to follow directions. Patient able to care for new ostomy. out put noted in bag. Bowel sounds present. Stoma pink. Midline incision sandi in tact on proximal incision, distal incision as wound vac dressing in place drainage clear in tubing. Patient has PICC in right upper arm. dressing clean dry and intact. TPN running at this time.
[2019-08-30 01:29] VITALS: BP 120/71; PULSE 79; TEMP 98.3
[2019-08-30 04:36] VITALS: BP 116/80; PULSE 79; TEMP 98.4
[2019-08-30 07:32] VITALS: BP 120/77; PULSE 83; TEMP 98.1
[2019-08-30 09:52] LABS: BASO % 0.4 % (0.0-2.0); EOS % 0.5 % (0-4.0); GRAN # 6.5 (1.4-6.5); GRAN % 82.9 % (42.2-75.2); LYMPH # 0.8 (1.2-3.4); LYMPH % 10.5 % (20.0-51.0); MEAN CELL VOLUME 81 fl (80.0-100.0); MEAN CORPUSCULAR HGB CONC 29 g/dl (33.0-37.0); MEAN PLATELET VOLUME 9.8 fl (7.4-10.4); MONO # 0.4 (0.1-0.6); MONO % 4.8 % (1.7-9.3); PLATELET COUNT 524 K/mm3 (130-400); RED BLOOD COUNT 3.75 M/mm3 (4.20-5.60); REDCELL DISTRIBUTION WIDTH-CV 19.6 % (11.5-14.5)
[2019-08-30 09:58] LABS: HEMATOCRIT 30.3 % (42.0-52.0); HEMOGLOBIN 8.8 g/dl (13.5-18.0); MEAN CORPUSCULAR HEMOGLOBIN 23 pg (27.0-31.0)
--- NOTE | 2019-08-30 10:00 | NUR ---
Patient alert and oriented, answers questions appropriately. See assessment. Abdomen soft, non tender, non distended. Bowel sounds active x4 quads. Midline incision with sandi intact to upper aspect, lower aspect with wound vac in place. Ostomy site with stoma pink and protruding, flatus and stool noted in bag. PICC in place to RUE. Post op exercises encouraged.
[2019-08-30 13:15] VITALS: BP 132/84; PULSE 90; TEMP 97.9
[2019-08-30] MEDS ORDERED: ZOFRAN 4MG T4 MG/TAB PO (14:40)
[2019-08-30] MEDS ORDERED: NORCO 325 MG-51 TAB PO (14:40)
[2019-08-30 16:12] VITALS: BP 119/72; PULSE 88; TEMP 97.5
--- NOTE | 2019-08-30 16:21 | NUR ---
Reference number (#[id number]) to hot die picker wound vac in materials mgmt once cleaned by sterile processing.
--- NOTE | 2019-08-30 17:59 | NUR ---
Discharge instructions reviewed with patient, verbalized understanding. Discharged ambulatory to auto/home with family at 1720.
== END 2019-08-30 17:20 | disposition home or self-care (01) | DRG 857 ==
LOC: INPTSU 08-19 05:16 → SURG 08-19 05:16
PROVIDERS: Nurse Anesthetist, Certified Registered; Surgery; ADMIT Surgery
PROC: 0DBK0ZZ Excision of Ascending Colon, Open Approach (ICD-10-PCS; 2019-08-19)
PROC: 0DBB0ZZ Excision of Ileum, Open Approach (ICD-10-PCS; 2019-08-19)
PROC: 3E0436Z Introduction of Nutritional Substance into Central Vein, Percutaneous Approach (ICD-10-PCS; 2019-08-19 07:30)
PROC: 0DBN0ZZ Excision of Sigmoid Colon, Open Approach (ICD-10-PCS; principal; 2019-08-23 16:00)
PROC: 02HV33Z Insertion of Infusion Device into Superior Vena Cava, Percutaneous Approach (ICD-10-PCS; 2019-08-24)
PROC: 02PYX3Z Removal of Infusion Device from Great Vessel, External Approach (ICD-10-PCS; 2019-08-30)
DX: T81.49XA Infection following a procedure, other surgical site, initial encounter (principal); N32.1 Vesicointestinal fistula; E44.0 Moderate protein-calorie malnutrition; E11.9 Type 2 diabetes mellitus without complications; D64.9 Anemia, unspecified; F41.9 Anxiety disorder, unspecified; F32.9 Major depressive disorder, single episode, unspecified; Z79.84 Long term (current) use of oral hypoglycemic drugs
CPT/HCPCS: A4217; A4314; A6550; A9284; C1751; J0610; J0690; J1100; J1170; J1650; J1815; J2250; J2270; J2405; J2543; J2550; J2704; J2795; J3010; J3475; J3480; J7030; J7042; J7050; J7120; J7131; P9016; Q9967

== ENCOUNTER → 2019-08-10 | Outpatient (CLI) | payer BC ==
[2019-08-10 09:23] LABS: ALBUMIN 3.7 gm/dL (3.5-5.0); BILIRUBIN,TOTAL 0.5 mg/dL (0.0-1.0); CALCIUM 9.7 mg/dL (8.4-10.2); CREATININE, serum 1.13 (0.66-1.25); POTASSIUM 4.2 mmol/L (3.4-5.0); TOTAL PROTEIN 7.1 gm/dL (6.4-8.2)
[2019-08-10 10:23] LABS: HEMATOCRIT 26.5 % (42.0-52.0); HEMOGLOBIN 7.3 g/dl (13.5-18.0); MEAN CELL VOLUME 76 fl (80.0-100.0); MEAN CORPUSCULAR HEMOGLOBIN 21 pg (27.0-31.0); MEAN CORPUSCULAR HGB CONC 28 g/dl (33.0-37.0); MEAN PLATELET VOLUME 10.4 fl (7.4-10.4); PLATELET COUNT 559 K/mm3 (130-400); RED BLOOD COUNT 3.47 M/mm3 (4.20-5.60); REDCELL DISTRIBUTION WIDTH-CV 16.4 % (11.5-14.5)
== END ==
LOC: COL.LAB 08:57
PROVIDERS: Surgery
DX: Z01.818 Encounter for other preprocedural examination (principal)

== ENCOUNTER 2019-08-16 10:28 | Outpatient (RCR) | payer BC ==
[~2019-08-16] VITALS: Ht 180.3 cm; Wt 64.5 kg
[2019-08-16] VITALS (10 sets, daily range): BP systolic 94–109; BP diastolic 56–71; PULSE 92–99; TEMP 98.2–98.8
[2019-08-16] MEDS ORDERED: NATURAL IRON65 MG PO (11:35)
[2019-08-16] MEDS ORDERED: MAGNESIUM250 M1 PO (11:37)
[2019-08-16] MEDS ORDERED: XANAX 0.5MG0.5 MG PO (11:38)
[2019-08-16] MEDS ORDERED: GLUCOPHAGE500 MG/TAB PO (11:39)
[2019-08-16] MEDS ORDERED: NORCO 325 MG-51 TAB PO (11:40)
[2019-08-16] MEDS ORDERED: TOPROL XL 50MG50 MG PO (11:41)
[2019-08-16] MEDS ORDERED: B-121000 MCG PO (11:44)
== END 2019-08-16 15:33 | disposition home or self-care (01) ==
LOC: EUO 10:28
DX: D64.9 Anemia, unspecified (principal); Z79.899 Other long term (current) drug therapy
CPT/HCPCS: J7050; P9016

== ENCOUNTER → 2019-09-06 | Outpatient (CLI) | payer BC ==
[~2019-09-06] MED LIST changes: +B-121000 MCG PO; +MAGNESIUM250 M1 PO; +NATURAL IRON65 MG PO; +TOPROL XL 50MG50 MG PO; +XANAX 0.5MG0.5 MG PO; +ZOFRAN 4MG T4 MG/TAB PO
[2019-09-06 12:16] LABS: HEMOGLOBIN 10.1 g/dl (13.5-18.0); MEAN CELL VOLUME 80 fl (80.0-100.0); MEAN CORPUSCULAR HEMOGLOBIN 24 pg (27.0-31.0); MEAN CORPUSCULAR HGB CONC 30 g/dl (33.0-37.0); MEAN PLATELET VOLUME 11.3 fl (7.4-10.4); PLATELET COUNT 597 K/mm3 (130-400); RED BLOOD COUNT 4.25 M/mm3 (4.20-5.60); REDCELL DISTRIBUTION WIDTH-CV 19.9 % (11.5-14.5)
[2019-09-06 12:17] LABS: HEMATOCRIT 34.1 % (42.0-52.0)
[2019-09-06 12:21] LABS: ALBUMIN 3.9 gm/dL (3.5-5.0); BILIRUBIN,TOTAL 0.5 mg/dL (0.0-1.0); CALCIUM 10.2 mg/dL (8.4-10.2); CREATININE, serum 1.22 (0.66-1.25); POTASSIUM 4.6 mmol/L (3.4-5.0)
== END ==
LOC: COL.LAB 11:29
PROVIDERS: Surgery
DX: Z48.89 Encounter for other specified surgical aftercare (principal)

== ENCOUNTER → 2019-09-15 | Outpatient (CLI) | payer BC ==
[2019-09-15 09:16] LABS: HEMOGLOBIN 10.4 g/dl (13.5-18.0); MEAN CELL VOLUME 81 fl (80.0-100.0); MEAN CORPUSCULAR HEMOGLOBIN 24 pg (27.0-31.0); MEAN CORPUSCULAR HGB CONC 30 g/dl (33.0-37.0); MEAN PLATELET VOLUME 10.4 fl (7.4-10.4); PLATELET COUNT 338 K/mm3 (130-400); REDCELL DISTRIBUTION WIDTH-CV 19.3 % (11.5-14.5)
[2019-09-15 09:35] LABS: ALBUMIN 3.9 gm/dL (3.5-5.0); BILIRUBIN,TOTAL 0.3 mg/dL (0.0-1.0); CALCIUM 9.7 mg/dL (8.4-10.2); CREATININE, serum 0.96 (0.66-1.25); POTASSIUM 4.5 mmol/L (3.4-5.0); TOTAL PROTEIN 7.3 gm/dL (6.4-8.2)
== END ==
LOC: COL.LAB 08:58
PROVIDERS: Surgery
DX: Z48.89 Encounter for other specified surgical aftercare (principal)

== ENCOUNTER → 2019-10-18 | Outpatient (CLI) | payer BC | LOC: ZCOL.LAB 10:58 | DX: T81.31XA Disruption of external operation (surgical) wound, not elsewhere classified, initial encounter (principal) ==

== ENCOUNTER → 2020-01-11 | Outpatient (CLI) | payer BC ==
[2020-01-11 10:53] LABS: HEMATOCRIT 45.3 % (42.0-52.0); HEMOGLOBIN 15.2 g/dl (13.5-18.0); MEAN CELL VOLUME 83 fl (80.0-100.0); MEAN CORPUSCULAR HEMOGLOBIN 28 pg (27.0-31.0); MEAN CORPUSCULAR HGB CONC 34 g/dl (33.0-37.0); MEAN PLATELET VOLUME 10.7 fl (7.4-10.4); PLATELET COUNT 234 K/mm3 (130-400); RED BLOOD COUNT 5.43 M/mm3 (4.20-5.60); REDCELL DISTRIBUTION WIDTH-CV 13.7 % (11.5-14.5)
[2020-01-11 11:06] LABS: ALBUMIN 4.5 gm/dL (3.5-5.0); BILIRUBIN,TOTAL 0.9 mg/dL (0.0-1.0); CALCIUM 9.7 mg/dL (8.4-10.2); CREATININE, serum 1.36 (0.66-1.25); POTASSIUM 4.5 mmol/L (3.4-5.0); TOTAL PROTEIN 7.7 gm/dL (6.4-8.2)
== END ==
LOC: COL.LAB 10:28
PROVIDERS: Surgery
DX: Z01.812 Encounter for preprocedural laboratory examination (principal)

== ENCOUNTER → 2020-01-16 | Outpatient (CLI) | payer BC | LOC: COL.RAD 09:41 | DX: K80.20 Calculus of gallbladder without cholecystitis without obstruction (principal); N20.1 Calculus of ureter; N28.1 Cyst of kidney, acquired | CPT/HCPCS: Q9967 ==

== ENCOUNTER 2020-01-24 12:07 | Inpatient (IN) | payer BC ==
[~2020-01-24] VITALS: Ht 180.3 cm; Wt 67.3 kg
[2020-04-04] VITALS (14 sets, daily range): BP systolic 94–125; BP diastolic 67–95; PULSE 76–132; TEMP 97.6–98.6
--- NOTE | 2020-04-04 06:24 | NUR ---
Patient heart rate on admit was 132. Now down to 102. States that he feels dehydrated and anxious this AM. States that he was not able to sleep well last night.
[2020-04-04] MEDS ORDERED: TOPROL XL 25MG25 MG PO (07:05)
[2020-04-04] MEDS ORDERED: LOMOTIL 0.025 M1 TAB PO (07:07)
--- NOTE | 2020-04-04 11:30 | NUR ---
Patient post op to room 346. Report from Sharron in Pacu. Patient is alert & oriented. Only complaint at this time is of nausea. Zofran per orders. Pain managed with epidural. Abdominal dressing with shadowing noted. [place]ona to Dd with dark urine. Ivf per orders. Will monitor.
--- NOTE | 2020-04-04 15:10 | NUR ---
Patient up and we ambulated the halls, he did well. Did complain of slight lightheadedness. Patient settled back into bed. Continues to do well with pain management. Tolerating clear liquids. Nausea subsided.
--- NOTE | 2020-04-04 17:00 | NUR ---
Patient continues to have some shadowing on abdominal dressing, but not leaking. Torres to DD with tea colored output. Ivf per orders. Pain manged at this time
--- NOTE | 2020-04-04 19:02 | NUR ---
Up and ambulated the halls again, stand by assist. Did reenforce abdominal incisions with gauze & tape. TOlerated clears.
--- NOTE | 2020-04-04 20:24 | NUR ---
Pt. sitting up in bed at this time. Pt. is A&OX3, Assessment complete. IV to lt. hand patent, IV fluids infusing per orders. Epidural noted, some minimal drainage at site. Pt. denies pain. Dressing to abd. with drainage noted and marked. Pt. denies further needs, call light within reach.
[2020-04-05 01:04] VITALS: BP 100/62; PULSE 88; TEMP 98.1
[2020-04-05 03:47] VITALS: BP 97/70; PULSE 82; TEMP 98.7
[2020-04-05 06:04] LABS: BASO % 0.2 % (0.0-2.0); GRAN # 8.3 (1.4-6.5); GRAN % 85.1 % (42.2-75.2); HEMATOCRIT 39.2 % (42.0-52.0); HEMOGLOBIN 13.7 g/dl (13.5-18.0); LYMPH # 0.7 (1.2-3.4); LYMPH % 6.9 % (20.0-51.0); MEAN CELL VOLUME 83 fl (80.0-100.0); MEAN CORPUSCULAR HEMOGLOBIN 29 pg (27.0-31.0); MEAN CORPUSCULAR HGB CONC 35 g/dl (33.0-37.0); MEAN PLATELET VOLUME 11.9 fl (7.4-10.4); MONO # 0.7 (0.1-0.6); MONO % 7.5 % (1.7-9.3); PLATELET COUNT 207 K/mm3 (130-400); RED BLOOD COUNT 4.74 M/mm3 (4.20-5.60); REDCELL DISTRIBUTION WIDTH-CV 13.2 % (11.5-14.5)
[2020-04-05 06:18] LABS: CALCIUM 8.7 mg/dL (8.4-10.2); CREATININE, serum 0.99 (0.66-1.25)
--- NOTE | 2020-04-05 07:40 | NUR ---
PATIENT CALLED OUT STATING THAT HE IS NAUSEATED. PATIENT GIVEN PRN IV DOSE OF ZOFRAN. WILL CONTIUE TO MONITOR.
[2020-04-05 07:55] VITALS: BP 102/66; PULSE 86; TEMP 98.1
--- NOTE | 2020-04-05 08:11 | NUR ---
PATIENT RESTING IN BED. PATIENT IS A&OX4. BP SOFT, VSS. SHALLOW BREATHING NOTED. UPPER LUNG LOBES CLEAR UPON AUSCULTATION. LUNG BASES DIMINISHED BILATERALLY. PATIENT DENIES SOB OR A PRODUCTIVE COUGH. BOWEL SOUNDS ACTIVE ALL FOUR QUADRANTS. PATIENT TOLERATING CLEAR LIQUIDS WITHOUT DIFFICULTY. PATIENT REPORT PASSING FLATUS AND HAVING LOOSE DARK STOOLS. ABDOMINAL INCISIONS COVERED WITH GAUZE AND HYPAFIX DRESSING WITH SHADING PRESENT. EPIDURAL IN PLACE AND TEGADERM DRESSING IS CD&I. INDWELLING GARCIA CATHETER TO DEPENDENT DRAINAGE WITH CLEAR YENNI URINE PRESENT IN GARCIA BAG. IV FLUIDS INFUSING TO LEFT HAND IV VIA PUMP. CALL LIGHT WITHIN REACH. PATIENT DENIES ANY OTHER NEEDS AT THIS TIME.
[2020-04-05 12:00] VITALS: BP 109/65; PULSE 96; TEMP 98.1
--- NOTE | 2020-04-05 12:55 | NUR ---
PATIENTS ABDOMINAL DRESSING REMOVED. EDGES WELL APPROXIMATED. ABDOMEN RE-DRESSED WITH GAUZE & HYPAFIX. PATIENT TOLERATED WELL. PATIENT STATES THAT HE FEELS NAUSEATED.
--- NOTE | 2020-04-05 13:11 | NUR ---
UPON ENTRY TO THE ROOM THE PATIENT STATES THAT HE IS FEELING NAUSEATED AGAIN. TOO SOON FOR ZOFRAN. PATIENT GIVEN PRN IV PHENERGAN. WILL CONTINUE TO MONITOR.
[2020-04-05 16:07] VITALS: BP 98/56; PULSE 88; TEMP 98.6
--- NOTE | 2020-04-05 16:19 | NUR ---
Life Skills Educator called patient to discuss discharge planning. Patient lives alone in [place] and his parents Van (ph#[phone]) and Akin (ph#[phone]) live in [place]. Patient was seeing Dr. Lira but the [address] [place] [address] clinic is now closed. Patient states he plans to get established with Dr. Aguilar in [place] as he used to see this provider. Patient obtains medications from [facility] with no difficulties. Patient reports independence with ADLS and that he uses a bedside commode. Patient plans to return home upon discharge. Patient does not have [facility]PO[facility] established. SW to continue to follow.
--- NOTE | 2020-04-05 19:11 | NUR ---
REPORT GIVEN TO CRISTINE ECKERT.
--- NOTE | 2020-04-05 20:00 | NUR ---
Pt. sitting up in bed at this time. Pt. is A&OX3, assessment complete. IV to lt. hand patent, IV fluids infusing per orders. Epidual to back intact, mild drainage noted. Pt. reports that he has had good pain management with the epidural. Pt. also reports that he has had several BM's today. Pt. denies pain or other needs at this time. Call light within reach.
[2020-04-06 00:42] VITALS: BP 106/66; PULSE 102; TEMP 99.2
[2020-04-06 05:02] VITALS: BP 103/71; PULSE 100; TEMP 97.7
[2020-04-06 06:27] LABS: BASO % 0.6 % (0.0-2.0); EOS # 0.1 (0.0-0.7); GRAN # 4.1 (1.4-6.5); GRAN % 75.1 % (42.2-75.2); HEMATOCRIT 37.3 % (42.0-52.0); HEMOGLOBIN 12.7 g/dl (13.5-18.0); LYMPH # 0.6 (1.2-3.4); LYMPH % 11.5 % (20.0-51.0); MEAN CELL VOLUME 85 fl (80.0-100.0); MEAN CORPUSCULAR HEMOGLOBIN 29 pg (27.0-31.0); MEAN CORPUSCULAR HGB CONC 34 g/dl (33.0-37.0); MEAN PLATELET VOLUME 11.5 fl (7.4-10.4); MONO # 0.6 (0.1-0.6); MONO % 10.6 % (1.7-9.3); PLATELET COUNT 188 K/mm3 (130-400); RED BLOOD COUNT 4.37 M/mm3 (4.20-5.60); REDCELL DISTRIBUTION WIDTH-CV 13.3 % (11.5-14.5)
[2020-04-06 06:52] LABS: CALCIUM 8.6 mg/dL (8.4-10.2); CREATININE, serum 1.12 (0.66-1.25); POTASSIUM 3.9 mmol/L (3.4-5.0)
[2020-04-06 07:49] VITALS: BP 111/73; PULSE 108; TEMP 98.1
--- NOTE | 2020-04-06 08:00 | NUR ---
Assessment complete. Patient A&Ox4, denies pain and discomfort. VSS. IV CDI. Epidural in place, CDI. Incision midline CDI. Torres dependent drainage, clear yellow. No further needs expressed from patient. Call light within reach
[2020-04-06 11:53] VITALS: BP 105/67; PULSE 90; TEMP 97.9
--- NOTE | 2020-04-06 11:54 | NUR ---
First visit from the grocery deliverer. No needs right now.
--- NOTE | 2020-04-06 13:01 | NUR ---
EPIDURAL DISCONTINUED PER ORDERS TIP INTACT PT TOLERATED WELL.
--- NOTE | 2020-04-06 14:32 | NUR ---
Torres removed. Pericare provided before and after removal. 10ml water removed from the balloon. Patient tolerated well. No further needs expressed from the patient. Call light within reach
--- NOTE | 2020-04-06 15:45 | NUR ---
Dressing to abdomen removed. [place] intact 20 midline edges approximated. 3 sandi to RLQ incision site. CDI Edges well approximated. Incision open to air. Patient tolerated well. No further needs expressed from patient. Call light within reach
[2020-04-06 15:59] VITALS: BP 105/71; PULSE 86; TEMP 97.9
--- NOTE | 2020-04-06 17:28 | NUR ---
Patient sitting up in bed eating dinner. Has been walking in the halls independently and tolerating well. Incision abdomen CDI, sandi intact, Denies pain and discomfort. IV CDI. VSS. No further needs expressed from patient. Call light within reach
[2020-04-06 19:57] VITALS: BP 110/69; PULSE 98; TEMP 98.4
--- NOTE | 2020-04-06 20:00 | NUR ---
Report received. 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 A&Ox3. Assessment complete. VS stable. Denies pain. States he is a little nauseas but states not enough to need medications. States he is having frequent liquid stools. Midline incision-sandi intact-no s/s of infection noted. Left abdominal incision-sandi intact-no s/s of infection noted. Plan of care discussed for this shift to include pain control/HS meds. Denies questions/concerns. Call light in reach. Will monitor.
--- NOTE | 2020-04-06 21:00 | NUR ---
Amublating in hallway independently. Tolerating well.
--- NOTE | 2020-04-06 22:30 | NUR ---
Called with c/o increased nausea. States hes not sure if its actual nausea because it feels like a "rolling pressure sensation." States he would like to try half the dose of ordered [id number] see if it will help. Given at this time. WIll monitor.
[2020-04-07] VITALS (8 sets, daily range): BP systolic 102–136; BP diastolic 65–83; PULSE 82–99; TEMP 97.6–99.7
--- NOTE | 2020-04-07 08:00 | NUR ---
PATIENT SITTING UP IN THE BED THIS MORNING. PATIENT IS A&OX4. VSS. PATIENT TEMPERATURE THIS MORNING IS 99.7. PATIENT GIVEN SCHEDULED TYLENOL. WILL CONTINUE TO MONITOR. BOWEL SOUNDS HYPERACTIVE ALL FOUR QUADRANTS. PATIENT TOLERATING DIET WITH SOME NAUSEA, BUT PATIENT DENIES ANY VOMITING. MIDLINE ABDOMINAL INCISION EDGES WELL APPROXIMATED. LEX IN PLACE. 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 LEFT-SIDED COLOSTOMY REVERSAL SITE AIR DEFENSE ARTILLERY SENIOR SERGEANT WITH EDGES WELL APPROXIMATED LEX IN PLACE. POSITIVE PEDAL PULSES EQUAL BILATERALLY. INT TO LEFT HAND. CALL LIGHT WITHIN REACH. PATIENT DENIES ANY OTHER NEEDS AT THIS TIME.
--- NOTE | 2020-04-07 11:52 | NUR ---
PATIENT CALLED OUT REQUESTING NAUSEA MEDICATION. PATIENT GIVEN PRN IV ZOFRAN. NO OTHER NEEDS AT THIS TIME.
--- NOTE | 2020-04-07 18:58 | NUR ---
REPORT GIVEN TO CRISTINE HUBBARD.
[2020-04-08 03:40] VITALS: BP 113/78; PULSE 100; TEMP 98.3
--- NOTE | 2020-04-08 04:00 | NUR ---
Rested off and on this shift. Did c/o nausea x2 and received zofran per order. Ambulated in hallway. Pain adequately controlled tylenol. States there is a decrease in the frequency of BMs but not consistency. Denies questions/concerns. Call light in reach. Will monitor.
[2020-04-08 08:30] VITALS: BP 117/80; PULSE 114; TEMP 98.7
--- NOTE | 2020-04-08 09:00 | NUR ---
PATIENT RESTING IN BED THIS MORNING. PATIENT IS DROWSY BUT AROUSES EASILY. PATIENT IS A&OX4. TACHYCARDIA NOTED, VSS. BOWEL SOUNDS HYPERACTIVE ALL FOUR QUADRANTS. PATIENT STATES THAT HE IS STILL HAVING LOOSE STOOLS BUT THEY ARE LESS FREQUENT. ABDOMINAL MIDLINE INCISION CENTRAL AISLE CASHIER WITH LEX INTACT AND EDGES WELL APPROXIMATED. LEFT COLOSTOMY REVERSAL SITE CINDY WITH LEX IN PLACE AND EDGES WELL APPROXIMATED. LEFT HAND TO INT. PATIENT GIVEN PRN PO PAIN MEDICATION THIS MORNING. PATIENT DENIES ANY OTHER NEEDS AT THIS TIME.
--- NOTE | 2020-04-08 11:16 | NUR ---
PATIENT AMBULATING INDEPENDENTLY IN THE HALLWAY. PATIENT RATING ABDOMINAL PAIN A 1/10 ON A 0-10 SCALE AFTER PO PAIN MEDICATIONS THIS AM. NO NEEDS AT THIS TIME.
[2020-04-08 13:00] VITALS: BP 103/75; PULSE 95; TEMP 98.3
--- NOTE | 2020-04-08 15:40 | NUR ---
PATIENT CALLED OUT STATING THAT HE FEELS NAUSEATED AFTER EATING LUNCH. PATIENT GIVEN PRN IV ZOFRAN.
[2020-04-08 16:00] VITALS: BP 102/72; PULSE 98; TEMP 97.8
--- NOTE | 2020-04-08 19:07 | NUR ---
REPORT GIVEN TO CRISTINE HUBBARD.
[2020-04-08 19:55] VITALS: BP 111/80; PULSE 103; TEMP 98.6
--- NOTE | 2020-04-08 20:00 | NUR ---
Report received. Assumed care for ostomy nurse. Currently resting with eyes closed-audible snoring. Opens eyes to voice but has been previously sedated due to being combative. Assessment complete. Converstaion confused with grumbling. When asked "are you in pain" screams "no get out now." left lower extremity elevated on pillows with ice pack applied. Noted to be +3 edema. VS stable. Will continue to monitor.
[2020-04-08 23:46] VITALS: BP 105/84; PULSE 98; TEMP 98.6
[2020-04-09 03:36] VITALS: BP 115/79; PULSE 104; TEMP 98.3
--- NOTE | 2020-04-09 04:00 | NUR ---
Rested well this shift. Frequency of BMs has decreased. Denies nausea this shift. Received oxycodone x1 for pain contorl. Tolerating diet. Amulated in hallways. Denies needs. WIll monitor.
[2020-04-09 07:39] VITALS: BP 118/80; PULSE 98; TEMP 97.8
--- NOTE | 2020-04-09 09:32 | NUR ---
Patient alert and oriented, answers questions appropriately. See assessment. Abdomen soft, non tender, non distended. Bowel sounds active x4 quads. +Flatus. +Bowel movement. Midline and previous colostomy incision sites with edges well approximated, sandi intact, no redness or drainage noted. Post of exercises reviewed with patient. Anticipates discharge today. No c/o at this time.
[2020-04-09 11:13] VITALS: BP 104/80; PULSE 100; TEMP 98.5
[2020-04-09] MEDS ORDERED: ZOFRAN 4MG T4 MG/TAB PO (11:57)
--- NOTE | 2020-04-09 12:09 | NUR ---
Dr Raines here to see patient.
--- NOTE | 2020-04-09 13:05 | NUR ---
Discharge instructions reviewed with patient, verbalized understanding. Discharged ambulatory to auto/home at 1305.
--- NOTE | 2020-04-09 13:23 | NUR ---
The patient discharged home today, 04/09. Per patient's nurse the patient was not needing any services. There are no additional needs at this time.
== END 2020-04-09 13:05 | disposition home or self-care (01) | DRG 337 ==
LOC: SURG 02-17 07:30 → INPTSU 04-04 05:27 → SURG 04-04 07:30
PROVIDERS: ADMIT Surgery
PROC: 0DNW0ZZ Release Peritoneum, Open Approach (ICD-10-PCS; 2020-04-04)
PROC: 0DSN0ZZ Reposition Sigmoid Colon, Open Approach (ICD-10-PCS; principal; 2020-04-04 07:30)
DX: Z43.3 Encounter for attention to colostomy (principal); K66.0 Peritoneal adhesions (postprocedural) (postinfection); E11.9 Type 2 diabetes mellitus without complications; F41.8 Other specified anxiety disorders
CPT/HCPCS: A4314; A9284; J0690; J1100; J1200; J1650; J2175; J2250; J2370; J2405; J2550; J2704; J2795; J3010; J3480; J7030; J7120

== ENCOUNTER → 2020-06-26 | Outpatient (CLI) | payer BC ==
[~2020-06-26] MED LIST changes: +LOMOTIL 0.025 M1 TAB PO
[2020-06-26 12:12] LABS: HEMATOCRIT 37.9 % (42.0-52.0); HEMOGLOBIN 12.4 g/dl (13.5-18.0); MEAN CELL VOLUME 82 fl (80.0-100.0); MEAN CORPUSCULAR HEMOGLOBIN 27 pg (27.0-31.0); MEAN CORPUSCULAR HGB CONC 33 g/dl (33.0-37.0); MEAN PLATELET VOLUME 11.1 fl (7.4-10.4); PLATELET COUNT 323 K/mm3 (130-400); RED BLOOD COUNT 4.65 M/mm3 (4.20-5.60)
[2020-06-26 12:19] LABS: ALBUMIN 3.8 gm/dL (3.5-5.0); BILIRUBIN,TOTAL 0.9 mg/dL (0.0-1.0); CALCIUM 8.9 mg/dL (8.4-10.2); CREATININE, serum 1.05 (0.66-1.25); POTASSIUM 3.4 mmol/L (3.4-5.0); TOTAL PROTEIN 7.2 gm/dL (6.4-8.2)
== END ==
LOC: COL.LAB 11:41
PROVIDERS: Surgery
DX: R50.9 Fever, unspecified (principal)

== ENCOUNTER → 2020-07-02 | Outpatient (CLI) | payer BC ==
[~2020-07-02] MED LIST changes: +IMODIUM A-D2 MG PO; +PROBIOTIC BLEN1 EACH PO; +ZINC SO4 PO
== END ==
LOC: COL.RAD 07:42
DX: N20.0 Calculus of kidney (principal); Z98.890 Other specified postprocedural states
CPT/HCPCS: J2704; Q9967

== ENCOUNTER → 2020-07-11 | Outpatient (CLI) | payer BC | LOC: COL.RAD 07:12 | DX: K65.1 Peritoneal abscess (principal); N20.1 Calculus of ureter | CPT/HCPCS: Q9967 ==

== ENCOUNTER → 2020-08-16 | Outpatient (CLI) | payer BC ==
[2020-08-16 15:11] LABS: HEMATOCRIT 37.2 % (42.0-52.0); HEMOGLOBIN 12.2 g/dl (13.5-18.0); MEAN CELL VOLUME 81 fl (80.0-100.0); MEAN CORPUSCULAR HEMOGLOBIN 27 pg (27.0-31.0); MEAN CORPUSCULAR HGB CONC 33 g/dl (33.0-37.0); MEAN PLATELET VOLUME 10.9 fl (7.4-10.4); PLATELET COUNT 441 K/mm3 (130-400); RED BLOOD COUNT 4.58 M/mm3 (4.20-5.60); REDCELL DISTRIBUTION WIDTH-CV 15.5 % (11.5-14.5)
[2020-08-16 15:21] LABS: ALBUMIN 3.6 gm/dL (3.5-5.0); BILIRUBIN,TOTAL 0.4 mg/dL (0.0-1.0); CREATININE, serum 1.02 (0.66-1.25); POTASSIUM 4.1 mmol/L (3.4-5.0); TOTAL PROTEIN 6.9 gm/dL (6.4-8.2)
== END ==
LOC: COL.LAB 14:52
PROVIDERS: Surgery
DX: T81.49XA Infection following a procedure, other surgical site, initial encounter (principal)

== ENCOUNTER → 2020-08-22 | Outpatient (CLI) | payer BC ==
[2020-08-22] VITALS (13 sets, daily range): BP systolic 102–120; BP diastolic 73–82; PULSE 78–102
[~2020-08-22] VITALS: Ht 180.3 cm; Wt 64.8 kg
[~2020-08-22] MED LIST changes: +ALEVE 220MG220 MG PO; +DOXYCYCLINE HY100 MG PO; -MULTIPLE VITAMI1 CAP PO; +MULTIPLE VITAMI1 TA5 PO; +PEPTO BISMOL262 MG PO; +PHARMASSURE ZIN50 MG PO
--- NOTE | 2020-08-22 09:20 | NUR ---
pt positioned in supine position on ct table. Monitors applied to pt.
--- NOTE | 2020-08-22 09:54 | NUR ---
Drain in place. Specimen obtained by Dr Taveras and placed in specimen cup.
--- NOTE | 2020-08-22 10:26 | NUR ---
Int removed from right AC space without difficulty. Catheter tip intact. 2x2 and coban to site. Pressure per coban.
== END ==
LOC: COL.RAD 07:56
DX: T81.49XA Infection following a procedure, other surgical site, initial encounter (principal); K80.20 Calculus of gallbladder without cholecystitis without obstruction; N20.2 Calculus of kidney with calculus of ureter; K63.0 Abscess of intestine
CPT/HCPCS: Q9967

== ENCOUNTER → 2020-09-03 | Outpatient (CLI) | payer BC | LOC: COL.RAD 07:15 | DX: K80.20 Calculus of gallbladder without cholecystitis without obstruction (principal); T81.49XA Infection following a procedure, other surgical site, initial encounter; N20.0 Calculus of kidney; K63.89 Other specified diseases of intestine | CPT/HCPCS: Q9967 ==